=== PATIENT | female | born 1945 | race Two or more races ===

== ENCOUNTER 2024-09-13 12:29 | Outpatient (AMB) | payer OTHER, SELFPAY ==
--- OUTSIDE RECORDS SUMMARY | 2024-09-13 12:38 | XMS_ITS | Data Portability ---
Author Organization [facility] Address [address] [place] [address] Care Team Providers Care Supervisor [address] Name Role Phone HIM CCA OTHER Assessment Encounter Date Assessment Date Assessment LastModified by Organization Details LastModified Time 06/20/2024 06/20/2024 As noted, we were called to see this patient regarding concerns of cough, dyspnea, chest pain. Evaluation in the field was performed by my annual giving officer colleague, as noted above, I provided real-time direction and supervision for this visit. The evaluation revealed same. Impression: 78yo/f who is 6 days s/p valve replacement surgery referred for evaluation for chest pain, dizziness, dyspnea. Patient seen by medic in home, endorse surgery as above, discharged to home. Today pt is having anterior chest discomfort, shortness of breath, occasional cough, episodes of dizziness . On medic exam she is awake, alert, but with tachypnea, mild increased work of breathing. EKG performed and shows LBBB. Discussed at length, pt is at high risk of post operative complications at this time including possibility of pulmonary embolism, valve failure. She requires in person evaluation for further evaluation and treatment in [facility] ED. Expect called to [facility] ED. Plan: ED Primary care, consider followup ED visit Disposition: We discussed the situation and I recommended referred to the ED. [email or web address] Not available 06/20/2024 14:45:50 09/06/2024 09/06/2024 Evaluation in the field was performed by my annual giving officer colleague, as noted above, I provided real-time direction and supervision for this visit. This is a 79yo F requesting [facility] evaluation for productive cough, congestion, SOB for the past 4 days. Patient is a poor historian. Has history of asthma/COPD but hasn? t used a breathing treatment in the past 3 days. Has occasionally taken Tylenol. Is eating/drinking. Denies NVD. Went to urgent care yesterday and got a prescription for prednisone which she did take today. PE: General: Awake & alert, NAD Respiratory: CTAB. Chest rise equal bilat, no increased wob at rest. CV: Regular rate, normal peripheral perfusion Neuro: A&Ox4, No focal deficits. Impression: Acute respiratory failure COPD exacerbation Plan: -Febrile to 101, BP stable, slight tachycardia -Prior to treatment, pt was SOB with dyspnea and tachycardia on ambulation. -She was given 3 DuoNebs with slight improvement at rest, but she is still tachypneic, and with ambulation she becomes more SOB with RR around 40. O2 sat low 90s. -Had already taken po prednisone this morning which was prescribed to her by urgent care yesterday, has not shown improvement from that. -Pt recommended ED evaluation for likely COPD exacerbation with respiratory failure unable to be further treated at home. She has refused, however. She states she doesn't want to go because she always has to wait forever and she is treated like an animal there. I explained to her that the volume in emergency departments is sometimes very high and unfortunately very busy, but she will still get the care she needs there. She still refuses. -She has a INVESTMENT BROKER at home but refused to allow us to contact any family to help make decisions. However, the INVESTMENT BROKER called her daughter who came to the home and has convinced the patient to go to the ED. -911 called for transport Disposition: Transport to [facility] ED Not available 09/06/2024 17:04:47 Plan of Treatment Reminders Order Date Submit Date Provider Last Modified By Organization Details Last Modified Time Details Appointments None recorded. Lab rapid flu (A+B) 2024 025 [facility], [address] [place] [address], [phone], 21:44:12 rapid SARS CoV 2 Ag, QL IA, respiratory specimen 2024 025 [facility], [address] [place] [address], [id number], 21:44:33 rapid SARS CoV 2 Ag, QL IA, respiratory specimen 2023 024 [email or web address] [facility], [address] [place] [address], [phone], 4 12:59:53 Referral None recorded. Procedures None recorded. Surgeries None recorded. Imaging electrocard iogram 2023 024 [email or web address] [facility], [address] [place] [address], [phone], 4 15:06:16 Medication Orders acetaminoph en 500 mg tablet 2024 025 Not available 5 15:48:16 ipratropium 0.5 mg-albutero l 3 mg (2.5 mg base)/3 mL nebulizatio n soln 2024 025 Not available 5 15:48:16 ipratropium 0.5 mg-albutero l 3 mg (2.5 mg base)/3 mL nebulizatio n soln 2024 025 Not available 5 16:26:19 Patient TargetsNo targets recorded. Patient InstructionsNo instructions recorded. Reason for Referral None Reported. Results Created Date Observation Date Name Description Value Unit Range Abnormal Flag Note LastModifiedBy Organization Detail LastModifiedTime 11/26/19 24 11/26/2023 rapid SARS CoV 2 Ag, QL IA, respi rator y speci men rapid SARS CoV 2 Ag, QL IA, respiratory specimen positi ve Not Available [facility] [address] [place] [address], [phone], 11/26/2023 12:59:45 06/20/20 24 06/20/2024 kacie akhtar am No observ ation record ed. [facility] [address] [place] [address], [phone], 06/20/2024 20:37:33 Result Notes None recorded. Procedures Surgical History None recorded. Imaging Results Imaging Date Name Status LastModified by Organization Details LastModified Time 06/20/2024 electrocardiogram completed jordan Duenas - [facility] [address] [place] [address], [place], [phone], 06/20/2024 20:37:33 Procedure Notes None recorded. Medical Equipment None Reported. Allergies Allergen ID Allergen Name Allergen Category Reaction Reaction Severity Criticality Documentation Date Start Date Code Code System Note Provider Name and Address Organization Details Recorded Time 67352 erythromy brock medicatio n Not available Not available Not available 06/20/2024 4053 RxNorm Not Available [facility] - production 4 13:06:43 8627 azithromy brock medicatio n Not available Not available Not available 05/29/2024 22976 RxNorm Not Available [facility] - production 4 03:45:39 Medications Name Sig Start Date Stop Date Status Note LastModified by Organization Details LastModified Time tolterodine ER 2 mg capsule,exte nded release 24 hr TAKE 1 CAPSULE BY MOUTH ONCE DAILY active Not Available Not Available No t Available metformin 500 mg tablet TAKE 1 TABLET BY MOUTH two (2) times a day active Not Available Not Available No t Available venlafaxine ER 37.5 mg capsule,exte nded release 24 hr TAKE TWO CAPSULES BY MOUTH ONCE DAILY active Not Available Not Available No t Available gabapentin 600 mg tablet TAKE 1 TABLET BY MOUTH 3 (THREE) TIMES A DAY active Not Available Not Available Not Available ipratropium 0.5 mg-albuterol 3 mg (2.5 mg base)/3 mL nebulization soln Inhale 6 mL by nebulizatio n route. 2024 active Not Available Not Available Not Avai lable clobetasol 0.05 % topical cream APPLY A THIN LAYER TO THE AFFECTED AREA two (2) times a day active Not Available Not Available No t Available ciprofloxaci n 500 mg tablet TAKE 1 TABLET BY MOUTH two (2) times a day. IF symtoms are BETTER AFTER 3 DAYS, can STOP AFTER 3 DAYS active Not Available Not Available No t Available sulfamethoxa zole 800 mg-trimethop rim 160 mg tablet active Not Available Not Available Not Available acetaminophe n 500 mg tablet Take 2 tablets by oral route. 2024 active Not Available Not Available Not Avai lable methenamine hippurate 1 gram tablet TAKE 1 TABLET BY MOUTH EVERY TWELVE HOURS active Not Available Not Available No t Available cephalexin 500 mg capsule TAKE 1 CAPSULE BY MOUTH 4 (FOUR) TIMES DAILY FOR 5 DAYS active Not Available Not Available N ot Available lidocaine 5 % topical patch APPLY 2 patches topically ONCE DAILY NEEDED FOR PAIN. USE FOR 12hrs active Not Available Not Available No t Available docusate sodium 100 mg capsule TAKE 2 CAPSULES BY MOUTH ONCE DAILY AT BEDTIME active Not Available Not Available No t Available gabapentin 300 mg capsule TAKE 1 CAPSULE BY MOUTH 3 (THREE) TIMES A DAY active Not Available Not Available Not Available omeprazole 20 mg capsule,prudence yed release TAKE TWO CAPSULES BY MOUTH ONCE DAILY BEFORE A MEAL active Not Available Not Available No t Available oxycodone-ac etaminophen 2.5 mg-325 mg tablet TAKE 1 TABLET BY MOUTH ONCE DAILY AT BEDTIME NEEDED FOR PAIN FOR 7 DAYS; MAY TAKE 1 TABLETS NEEDED active Not Available Not Available No t Available furosemide 20 mg tablet TAKE 1 TABLET BY MOUTH ONCE DAILY active Not Available Not Available No t Available mirtazapine 15 mg tablet TAKE 1 TABLET BY MOUTH AT BEDTIME active Not Available Not Available No t Available clobetasol 0.05 % topical ointment APPLY TO THE AFFECTED AREA two (2) times a day X 14 DAYS, THEN TWICE A WEEK active Not Available Not Available No t Available levofloxacin 750 mg tablet use as directed please take 1 tab the day before (12/09/22) the UDS and 1 tab on day of (12/10/22) UDS (750 mg x 2 tabs) active Not Available Not Available No t Available zolpidem 10 mg tablet TAKE 1 TABLET BY MOUTH AT BEDTIME FOR SLEEP active Not Available Not Available No t Available fluoxetine 20 mg capsule TAKE 1 CAPSULE BY MOUTH EVERY MORNING active Not Available Not Available No t Available oxycodone 5 mg tablet TAKE 1 TABLET BY MOUTH EVERY 8 HOURS NEEDED FOR PAIN active Not Available Not Available No t Available enoxaparin 80 mg/0.8 mL subcutaneous syringe INJECT THE CONTENT OF 1 syringe SUBCUTANEOU SLY EVERY TWELVE HOURS FOR 14 DAYS active Not Available Not Available No t Available enoxaparin 120 mg/0.8 mL subcutaneous syringe INJECT THE CONTENT OF 1 syringe (0.8ml) SUBCUTANEOU SLY ONCE DAILY FOR 14 DAYS. replaces pradaxa active Not Available Not Available No t Available Vitamin D3 25 mcg (1,000 unit) tablet TAKE 1 TABLET BY MOUTH ONCE DAILY DIRECTED active Not Available Not Available No t Available metformin ER 750 mg tablet,exten ded release 24 hr TAKE 1 TABLET BY MOUTH ONCE DAILY WITH A MEAL IN THE EVENING active Not Available Not Available Not Available rosuvastatin 10 mg tablet TAKE 1 TABLET BY MOUTH ONCE DAILY active Not Available Not Available No t Available Urinary Pain Relief 95 mg tablet TAKE 2 TABLETS BY MOUTH 3 (THREE) TIMES A DAY NEEDED FOR dysuria active Not Available Not Available Not Available lactulose 10 gram/15 mL oral solution TAKE 30mls BY MOUTH 3 (THREE) TIMES A DAY NEEDED FOR CONSTIPATIO N active Not Available Not Available No t Available pregabalin 75 mg capsule TAKE 1 CAPSULE BY MOUTH two (2) times a day FOR 21 DAYS active Not Available Not Available No t Available pregabalin 150 mg capsule TAKE 1 CAPSULE BY MOUTH two (2) times a day active Not Available Not Available No t Available FreeStyle Lite Strips USE TO TEST FINGER STICK BLOOD SUGAR ONCE DAILY active Not Available Not Available No t Available FeroSul 325 mg (65 mg iron) tablet TAKE 1 TABLET BY MOUTH ONCE DAILY active Not Available Not Available No t Available diclofenac 1 % topical gel APPLY TO THE AFFECTED AREA 4 (FOUR) TIMES DAILY active Not Available Not Available Not Available Pradaxa 150 mg capsule TAKE 1 CAPSULE BY MOUTH two (2) times a day active Not Available Not Available No t Available Combivent Respimat 20 mcg-100 mcg/actuatio n solution for inhalation INHALE 1 PUFF BY MOUTH 4 (FOUR) TIMES DAILY NEEDED FOR SHORTNESS OF BREATH OR FOR WHEEZING active Not Available Not Available No t Available Myrbetriq 25 mg tablet,exten ded release TAKE 1 TABLET BY MOUTH ONCE DAILY active Not Available Not Available No t Available Linzess 145 mcg capsule TAKE 1 CAPSULE BY MOUTH ONCE DAILY. MAY TAKE two (2) times a day NEEDED active Not Available Not Available No t Available Linzess 290 mcg capsule TAKE 1 CAPSULE BY MOUTH ONCE DAILY active Not Available Not Available No t Available Jardiance 10 mg tablet TAKE 1 TABLET BY MOUTH ONCE DAILY active Not Available Not Available No t Available Senna-Time S 8.6 mg-50 mg tablet TAKE 1 TABLET BY MOUTH two (2) times a day FOR 10 DAYS active Not Available Not Available No t Available Trelegy Ellipta 200 mcg-62.5 mcg-25 mcg powder for inhalation INHALE 1 PUFF BY MOUTH BY MOUTH ONCE DAILY active Not Available Not Available No t Available Paxlovid 300 mg (150 mg x 2)-100 mg tablets in a dose pack TAKE 3 TABLETS BY MOUTH AT ONCE TWICE DAILY WITH OR WITHOUT FOOD FOR 5 DAYS active Not Available Not Available No t Available Vitals Date Recorded Body weight Oxygen saturation Oxygen saturation in Arterial blood by Pulse oximetry Respiratory rate Heart rate Systolic blood pressure Diastolic blood pressure Provider Name and Address Organization Details Last Updated DateTime 3 41657.4 8 g 99 % 99 % 16 /min 105 /min 146 mm[Hg] 73 mm[Hg] Not Available [facility] [employer] 3 11:31:18 Date Recorded Oxygen saturation Oxygen saturation in Arterial blood by Pulse oximetry Body temperature Heart rate Respiratory rate Systolic blood pressure Diastolic blood pressure Provider Name and Address Organization Details Last Updated DateTime 3 98 % 98 % 98.6 [degF] 68 /min 18 /min 132 mm[Hg] 76 mm[Hg] Not Available [employer] 3 20:48:07 Date Recorded Body weight Body temperature Respiratory rate Heart rate Oxygen saturation Oxygen saturation in Arterial blood by Pulse oximetry Systolic blood pressure Diastolic blood pressure Provider Name and Address Organization Details Last Updated DateTime 4 10300.6 24 g 99.1 [degF] 18 /min 96 /min 98 % 98 % 146 mm[Hg] 74 mm[Hg] Not Available [employer] 4 12:50:41 Date Recorded Oxygen saturation Oxygen saturation in Arterial blood by Pulse oximetry Respiratory rate Heart rate Body temperature Systolic blood pressure Diastolic blood pressure Provider Name and Address Organization Details Last Updated DateTime 4 99 % 99 % 28 /min 76 /min 98.4 [degF] 152 mm[Hg] 86 mm[Hg] Not Available [employer] 4 14:15:40 Date Recorded Oxygen saturation Oxygen saturation in Arterial blood by Pulse oximetry Respiratory rate Heart rate Body temperature Systolic blood pressure Diastolic blood pressure Provider Name and Address Organization Details Last Updated DateTime 5 94 % 94 % 32 /min 110 /min 101.1 [degF] 166 mm[Hg] 78 mm[Hg] Not Available [facility] 5 15:32:44 Social History None recorded. Functional Status None recorded. Mental Status None recorded. Family History Nothing Reported. Medical History No medical history recorded. Gynecological HistoryNo gynecological history recorded. Obstetrics History GPAL:G 0 P 0 0 0 0 Past Encounters Encounter ID Performer Location Encounter Start Date Encounter Closed Date Diagnosis/Indication Diagnosis SNOMED-CT Code Diagnosis ICD10 Code Diagnosis Note [id number] Yee Summers MD Main - [facility] [address] [place] [phone] 01/14/2023 11:31:17 01/15/2023 23:03:10 Chronic pain syndrome 696643233 G89.4 77 year old female with neuropathi c pain, being evaluated for acute on chronic pain. Patient reports she is having worsening pain that is incomplete ly relieved by her home medication s. She takes gabapentin 600 TID, and has some percocet, along with topicals. She is on blood thinners. Pain appears to be bothersome all over her body. Exam notable normal vital signs. Presentati on consistent with acute flare up of chronic neuropathi c pain, patient already maximizing home regimen, and risks of toradol outweigh benefits, therefore instructed patient to contact outpatient team for follow up to discuss additional pain control options. [id number] Cr Carrington MD Main - [facility] [address] [place] [phone] 07/01/2023 20:48:03 07/02/2023 11:43:22 Pain of knee region 1443165935 M25.569 Patient reporting acute on chronic knee pain. History of osteoarthr itis, anticoagul ation, and CKD. Doubt gout or septic arthritis given annual giving officer examinatio n and known history of OA. Sue rosenthal not a good candidate for ketorolac and has been taking acetaminop hen according to age-approp riate dosing. Advised follow-up with PCP and orthopedic s for re-evaluat ion. [id number] HUMZA GARLAND MD Main - [facility] [address] [place] [phone] 11/26/2023 12:50:38 11/27/2023 17:18:04 Acute COVID-19 [id number] U07.1 Evaluation in the field was performed by my annual giving officer colleague, as noted above, I provided real-time direction and supervisio n for this visit. The evaluation revealed 72 yo female with hx of afib on Dabigatran , Type 2 DM with complains of low grade fever, mild cough, headache and myalgia since Tuesday. She tested negative for Covid then, but since symptoms continued , family tested her last night and she tested Positive. Denies SOB, N/V/D. Tolerating PO well.VSS : SpO2 98 % on RA, RR 18, T 99.1Lungs CTABCovid Positive Impression :Covid infection Plan:Famil y requested Paxlovid. Unfortunat ariadna , pt is taking Dabigatran . Nirmatrelv ir can significan tly increase the blood levels of dabigatran , which may result in increased risk of bleeding complicati ons.We discussed the possibilit y of Molnupirav ir but [facility] does not carry it.Pt with low grade fever that is responding to Tylenol, respirator y status is stable with no hypoxia or cough .-Red flags discussed with the family Primary care, consider__ _ Dispositio n: We discussed the diagnostic uncertaint y of home visits and the risk associated with this. In this case, the patient and I felt this to be an acceptable and reasonable amount of risk given the benefit of avoiding an ED visit. We discussed the need to seek care urgently/e mergently in the setting of any new or worsening serious symptoms, particular ly fever >101 that is not responding to Tylenol ( should not used Ibuprofen ), chills, SOB, cough, N/V/D, weakness or any other concerns. [id number] Angel Rabago MD Main - [facility] [address] [place] [phone] 06/20/2024 14:15:26 06/20/2024 18:05:31 Chest pain 20244575 R07.9 [id number] Missy Forrest MD Main - [facility] [address] [place] [phone] 09/06/2024 15:28:58 09/06/2024 18:55:01 Upper respiratory infection 00536745 J06.9 Acute resp iratory failure 39797102 J96.00 Acute exac erbation of chronic obstructive pulmonary disease [id number] J44.1 Health Concerns Section Related Observation LastModified by Organization Detai ls LastModified Time None Recorded Concern Status LastModified by Organization Details LastModified Time None Recorded Advance Directives Directive None Recorded Payers Encounter Date Sequence Insurance Name Policy Number Policy Orozco Covered Member ID Orozco Member ID Guarantor Name 01/14/2023 1 [facility] [employer] - DOS ON OR AFTER 2022 - DUAL ELIGIBLE - DETENTION OPTIONS AND ONE CARE (MEDICARE REPLACEMENT/ADV ANTAGE - HMO) Kaitlynn Concepcion [id number] Kaitlynn Concepcion 07/01/2023 1 [employer] - DOS ON OR AFTER 2022 - DUAL ELIGIBLE - DETENTION OPTIONS AND ONE CARE (MEDICARE REPLACEMENT/ADV ANTAGE - HMO) Kaitlynn Concepcion [id number] Kaitlynn Concepcion 11/26/2023 1 [employer] - DOS ON OR AFTER 2022 - DUAL ELIGIBLE - DETENTION OPTIONS AND ONE CARE (MEDICARE REPLACEMENT/ADV ANTAGE - HMO) Kaitlynn Garciaanda [id number] Kaitlynn Concepcion 06/20/2024 1 [employer] - DOS ON OR AFTER 2022 - DUAL ELIGIBLE - DETENTION OPTIONS AND ONE CARE (MEDICARE REPLACEMENT/ADV ANTAGE - HMO) Kaitlynn Concepcion [id number] Kaitlynn Concepcion 09/06/2024 1 [employer] - DOS ON OR AFTER 2022 - DUAL ELIGIBLE - DETENTION OPTIONS AND ONE CARE (MEDICARE REPLACEMENT/ADV ANTAGE - HMO) Kaitlynn Concepcion [id number] Kaitlynn Concepcion Notes Date Note Type Note Provider Name and Address Organization Details Recorded Time 01/14/2023 text/html [facility] Nursing Assessment: Chief Complaints: Pain PMH: Other Allergies: Azithromycin Pain Assessment: Level 10 out of 10 Comments: Difficulty ambulating the last 2 days due to increased Left knee and leg pain. Fall 2-3 weeks ago, was evaluated in ED at that time. Negative imaging. Takes 2.5mg Oxycodone PRN and gabapentin for pain. Daughter states she has been trying to set up [facility] services for member. Has sent message to PCP regarding this concern. .................... .................... .................... .................... .................... .................... .................... . Director Of Planning Note From Lonnie Garcia: pt requesting visit for pain. pt was found laying in bed with her legs elevated and family member at her bedside. pt states she has pain all over her body from her toes to her torso. Pt states she had a mechanical fall about a month ago and the pain has been worse since. Pt has hx of neuropathy and chronic pain. Pt is on doreen and tylenol as well as various creams and ointments for pain with little to no relief. Pt states she has been taking her percocets that she has left over from a prescription back in september. Pt is on blood thinners thus making her incompatible with ketorolac. Vitals assessed. Pt denies n/v/d/f/sob/cp. [facility] contacted, [facility] recommends the pt reach out to her PCP about a refill of the percocet or upping the dose on her gabapentin. Pt educated on s/s warranting a 911 call/trip to the hospital. Director Of Planning Allergies: Azithromycin .................... .................... .................... .................... .................... .................... .................... . Disposition: April Summers MD [address] [facility],[address], [place], [phone], [facility] 01/14/2023 11:36:50 07/01/2023 text/html HPI: mbr with complaints of knee swollen/warm and Painful 03/10 making it difficult to walk,. requesting [facility] Protocol Used: Knee Swelling Protocol-Based Disposition: Consider JOSE ENRIQUE [facility] Community clinician, MD/GRINDER NEEDLE TIP triage, PCP, or Urgent Care Visit within 4 Hours Positive Triage Questions: * [1] SEVERE pain (e.g., excruciating, unable to walk) AND [2] not improved after 2 hours of pain medicine * SEVERE swelling (e.g., can't move swollen knee at all) Negative Triage Questions: * [1] Knee pain AND [2] fever * [1] Knee redness AND [2] fever * [1] Redness AND [2] painful when touched AND [3] no fever .................... .................... .................... .................... .................... .................... .................... . [facility] Nursing Assessment: Comments: Reviewed, no further info needed Jaqueline CATHERINE .................... .................... .................... .................... .................... .................... .................... . Director Of Planning Note From Prieto Prasad: Dispatched to the call address for the female with knee pain. Pt states she has right knee pain that she has had for 2 months now. She has been seen by her PCP and in the ED. Pt was in ED last week and family shared notes from PCPs review of her stay there. PCP states Pt has osteoarthritis and a minor amount of fluid in the joint. He suggested that it would hurt off and on likely for the rest of her life but that she may need a steroid injection. Pt is currently taking blood thinners and believes she has CKD, making her a poor candidate for NSAIDs. Pt is already maxing out on daily limit of Tylenol. She also takes Oxycodone and gabapentin that is prescribed to her. Pt was found laying in bed with legs elevated, CAOx4, airway open and patent, breathing non labored, able to speak in full sentences, -JVD, -HEENT, skin PWD with good turgor, abd soft non tender/distended, pupils PERRL, +CMSx4, no noted erythema or signs of infection noted, Right knee is comparable to left and no obvious deformities or crepitus noted. [facility] consulted. Pt advised to follow up with PCP and advised ice/heat as needed. Red flags discussed. ALL times are approx. .................... .................... .................... .................... .................... .................... .................... . Disposition: Fulfilled Cr Carrington MD [address], [place], [address], [employer] 07/01/2023 22:02:51 11/26/2023 text/html HPI: members daughter called, reports member with fever 99-101, cough, bodyaches, x 4 days. Tested negative for COVID on Tue, and then tested again last night and was positive. She is requesting an instED visit for assessment and to discuss need for Paxlovid. .................... .................... .................... .................... .................... .................... .................... . CRC Nurse Triage Notes (Lewis White): Comments: HPI reviewed by this RN, no further information needed to process visit -Claire White RN .................... .................... .................... .................... .................... .................... .................... . Director Of Planning Note From Brennen Lyman: Pt co headache cough and fever. Pt Covid POs. Pt symptoms x4 days. Pt denies sob cp NVD. Pt on thinners. Baseline vitals assessed lungs clear , Covid swab POs. [facility] contacted and advised rest and fluids. Pt advised red flags that would indicate the ER. Pt advised to follow up with pcp. Director Of Planning Allergies: Azithromycin .................... .................... .................... .................... .................... .................... .................... . Disposition: April HUMZA GARLAND MD [address] [facility],[address], [place], [address], [facility] [employer] 11/26/2023 13:40:25 06/20/2024 text/html HPI: Member's daughter Francoise called CRU, requesting INTSED visit for member. 78 y/o female member with c/o chest pain, sob, cough with green sputum production, chest pressure and dizziness. Member is able to speak in full sentences without pauses or breaks. Daughter refused to have member evaluated in ED, despite education related to severity of sx's and fragile status. Education provided, member is at risk for severe complications d/t delay in treatment. Francoise verbalized comprehension and is [facility] and is refusing to take member to ED. Member is s/p heart valve replacement, last week. PMH includes: DVT lower leg, paraplegia, DM II, aortic valve stenosis, COPD, chronic edema, MDD, anxiety. This [facility] nurse [facility]. Wait time for visit can be anywhere from 3-5 hours. Informed Francoise of this long wait time and encouraged her to call 911 if sx's worsen or change .................... .................... .................... .................... .................... .................... .................... . CRC Nurse Triage Notes (Jose Locke): Chief Complaints: Chest pain, Cough, Dizziness PMH: Para or Quadriplegia, COPD/Asthma, Deep Vein Thrombosis, Diabetes Mellitus Type 2, Asthma Comments: Assess s/s and treat as indicated Director Of Planning Organization Information for Nick Casey Business Legal Name: [employer]? Address: [address] [place] [address], Machine Brusher: Dany DANIEL No.: [id number] Director Of Planning POC Test Results from Nick Casey EKG (14:10:14) EKG test performed. Attachments uploaded as part of this test result can be found under Documents section. .................... .................... .................... .................... .................... .................... .................... . Director Of Planning Note From Nick Casey: Dispatched to above address for chest pain On arrival patient 78 y/o F, found lying in bed, AOX4, airway patent, speaking in full sentences, tachypneic, slight shortness of breath with exertion, good color, in no apparent distress. Patient reports last she had a cardiac valve replacement, today is having bilateral foot pain, SOB difficulty breathing and chest pressure unrelieved by home MDI use. Patients vital signs checked. Secondary assessment, pupils PERRL, airway patent, no JVD, trachea midline, equal chest rise and fall, lungs clear all rowe, abdomen soft non tender, no signs of trauma, good radial pulse, skin pink warm and dry. 12 lead EKG showed sinus rhythm with LBBB, uploaded. [facility] contacted, spoke with Dr. Rabago, advised of patient complaints, exam findings and test results. [facility] recommended patient be transported to ER for further evaluation and testing. Patient and family agree with this. 911 contacted. [facility] responded. Patient extricated to ambulance. IV access established, 20g L wrist. Patient administered 324mg ASA PO. Patient has no additional complaints at this time. Patient remained AOX4 for duration of transport, able to speak and answer questions without difficulty. Patient transported to [facility] without incident or change in status. Verbal report given to RN. RAFAEL ortiz. EOR. .................... .................... .................... .................... .................... .................... .................... . [facility] Consulted: Angel Rabago .................... .................... .................... .................... .................... .................... .................... . Disposition: Fulfilled Angel Rbaago MD [address] [place] [address],[address], [place], [address], [employer] 06/20/2024 15:45:21 09/06/2024 text/html HPI: RUPERTO is a 79 y/o female with a PMH of, but not limited to: COPD, DM II (oral agents), paraplegia (self-caths), AVR (06/14/24), GERD, Hx DVT? s , and chronic venous insufficiency. RUPERTO is weak and ill-sounding at the onset of this call. She reports moderate SOB, nasal congestion, runny nose (white with ? b loody spots? ), a productive cough yielding cream colored sputum, headaches, a slightly ? b lue tinged upper lip? , weakness, and suspicion of fevers. She does not have a thermometer but feels ? f everish.? RUPERTO denies CP, palpitations, or any other symptoms at this time. RUPERTO is very weak and ill-sounding to this typewriter assembler. She is congested, has a wet cough, and occasional mild wheezing can be appreciated. RUPERTO is primarily Kazakh speaking, AOx4, speaks in full sentences, and answers questions appropriately. She is increasingly SOB with speaking. RUPERTO is strongly advised to present to ED via 911, but she becomes extremely upset and states, ? I would rather in my house than go there! I went before for this same thing, and I sat in the hallway for 24 hours.? RUPERTO wants an in-home visit first. This CRU RN assures RUPERTO that a referral will be placed on her behalf. After confirming RUPERTO? s address and phone number on file, RUPERTO is strongly advised to call 911 for any new or worsening symptoms. She understands and will do so if absolutely necessary. RUPERTO can be reached at [phone]. (Of note: RUPERTO had AVR on 06/14/24 and developed a cough since then; on Lasix) .................... .................... .................... .................... .................... .................... .................... . [facility] Nurse Triage Notes (Nancy Hurt - RN): Chief Complaints: Breathing problems, Common cold symptoms, Cough, Fever/chills, Headache, Weakness PMH: Para or Quadriplegia, COPD/Asthma, Deep Vein Thrombosis, Diabetes Mellitus Type 2, Asthma PMH Reviewed at 09/06/2024 Allergies Reviewed at 09/06/2024: Comments: additional information received by CRU 1:36pm ? MBR? s daughter and EC1, Francoise Angela, contacts the CRU directly to request an InstED in-home service for MBR today for ongoing cough. Ms. Angela reports that RUPERTO had a ? h eart valve replacement on 06/14/24 and, since then, has developed this cough.? RUPERTO has been seen many times and prescribed medications, which have not been working well. Caller reports that RUPERTO has been hospitalized a few times since with ? f luid in her lungs.? RUPERTO was seen in 2 weeks ago, and again yesterday for this cough. MBR had a CXR yesterday which revealed ? s light fluid in the lungs.? MBR followed up with PCP today over the phone, her Lasix dose was increased from 20mg to 50mg, which ? h asn? t helped much.? MBRs daughter very concerned and requests InstED visit. This CRU RN informs caller that MBR will be outreached for further triage of this call. Ms. Angela requests dredge pipeman for call. Director Of Planning Organization Information for Carmela Nick Resendez MARY Business Legal Name: [employer].? Address: [address] [place] [address], [place] [address], Machine Brusher: Dany Chand MD CLIA No.: [id number] Director Of Planning POC Test Results from Nick Casey Rapid COVID antigen (15:35:24) COVID: - Attachments uploaded as part of this test result can be found under Documents section. Rapid influenza antigen (15:35:24) Flu: - Attachments uploaded as part of this test result can be found under Documents section. .................... .................... .................... .................... .................... .................... .................... . Director Of Planning Note From Nick Casey: Dispatched to above address for difficulty breathing. On arrival patient 79 y/o F, found walking from bathroom to bedroom, using walker, normal gait, AOX4, airway patent, speaking in short sentences, tachypneic, good color, in moderate distress. Patient reports she had an AVR in June, since has had several episodes of shortness of breath difficulty breathing malaise and lethargy. Patients vital signs checked. Secondary assessment, pupils PERRL, airway patent, no JVD, trachea midline, equal chest rise and fall, lungs clear all rowe, shallow rapid respirations, abdomen soft non tender, no signs of trauma, good radial pulse, skin pink warm and dry. Covid-19 and Flu test checked, both negative, results uploaded. [facility] contacted, spoke with Dr. Forrest, advised of patient complaints, exam findings and test results. [facility] ordered Duoneb and 1000mg Tylenol PO. Patient started on Duoneb, administered 1000mg Tylenol PO. Patient reevaluated after nebulizer TX without change. [facility] contacted, advised of no change in status after TX. [facility] ordered x2 Duoneb treatments and an ambulatory assessment after. X2 Duoneb TX administered. Ambulatory assessment preformed, patient became tachypneic in the 40s and tachycardic durring assessment. [facility] contacted, advised of assessment results. [facility] recommended patient go to ER for further evaluation and care. Patient refused further evaluation and care. As [facility] was preparing refusal form, patients daughter arrived on scene and was able to convince patient to go to ER. 911 called. [facility] responded, verbal report given to [facility] annual giving officer, took over patient care, will transport to [facility]. OH8 clear. EOR. .................... .................... .................... .................... .................... .................... .................... . [facility] Consulted: Missy Forrest .................... .................... .................... .................... .................... .................... .................... . Disposition: Fulfilled Missy Forrest MD [address] [facility], [place], [address], LUIS EDUARDO COLEMAN GEIGER 09/06/2024 18:05:54 OBGyn Episode No OBEpisode recorded.
--- OUTSIDE RECORDS SUMMARY | 2024-09-13 12:38 | XMS_ITS | Continuity of Care Document ---
Author Organization [employer] [place] [facility] Address [address] [place] [address] Care Team Providers Care Chemistry Manager Name Role Phone HIM CCA OTHER Assessment Encounter Date Assessment Date Assessment LastModified by Organization Details LastModified Time 09/06/2024 09/06/2024 Evaluation in the field was performed by my retail training manager colleague, as noted above, I provided real-time [...] there. She still refuses. -She has a INSTRUMENT LENS GRINDER APPRENTICE at home but refused to allow us to contact any family to help make decisions. However, the INSTRUMENT LENS GRINDER APPRENTICE called her daughter who came to the home and has convinced the patient to go to the ED. -911 called for transport Disposition: Transport to [facility] ED Not available 09/06/2024 17:04:47 Plan of Treatment Reminders Order Date Submit Date Provider Last Modified By Organization Details Last Modified Time Details Appointments None recorded. Lab rapid flu (A+B) 2024 025 [facility], [address] [place] [address], [id number], 21:44:12 rapid SARS CoV 2 Ag, QL IA, respiratory specimen 2024 025 [facility], [address] [place] [address], [phone], 21:44:33 Referral None recorded. Procedures None recorded. Surgeries None recorded. Imaging None recorded. Medication Orders acetaminoph en 500 mg tablet 2024 025 Not available 15:48:16 ipratropium 0.5 mg-albutero l 3 mg (2.5 mg base)/3 mL nebulizatio n soln 2024 025 Not available 15:48:16 ipratropium 0.5 mg-albutero l 3 mg (2.5 mg base)/3 mL nebulizatio n soln 2024 025 Not available 16:26:19 Patient TargetsNo targets recorded. Patient InstructionsNo instructions recorded. Reason for Referral None Reported. Results Created Date Observation Date Name Description Value Unit Range Abnormal Flag Note LastModifiedBy Organization Detail LastModifiedTime Result Notes None recorded. Medical Equipment None Reported. Allergies Allergen ID Allergen Name Allergen Category Reaction Reaction Severity Criticality Documentation Date Start Date Code Code System Note Provider Name and Address Organization Details Recorded Time 58580 erythromy brock medicatio n Not available Not available Not available 06/20/2024 4053 RxNorm Not Available [facility] - production 4 13:06:43 8627 azithsasha brock medicatio n Not available Not available Not available 05/29/2024 79280 RxNorm Not Available [facility] 03:45:39 Medications Name Sig [...] Available No t Available Vitals Date Recorded Oxygen saturation Oxygen saturation in Arterial blood by Pulse oximetry Respiratory rate Heart rate Body temperature Systolic blood pressure Diastolic blood pressure Provider Name and Address Organization Details Last Updated DateTime 94 % 94 % 32 /min 110 /min 101.1 [degF] 166 mm[Hg] 78 mm[Hg] Not Available [facility] - production 15:32:44 Social History None recorded. Functional Status None recorded. Mental Status None recorded. Family History Nothing Reported. Medical History No medical history recorded. Gynecological HistoryNo gynecological history recorded. Obstetrics History GPAL:G 0 P 0 0 0 0 Past Encounters Encounter ID Performer Location Encounter Start Date Encounter Closed Date Diagnosis/Indication Diagnosis SNOMED-CT Code Diagnosis ICD10 Code Diagnosis Note [id number] Missy Forrest MD [facility] - [facility] [address] [place] [phone] 09/06/2024 15:28:58 09/06/2024 18:55:01 Upper respiratory infection 28800142 J06.9 Acute resp iratory failure 79296337 J96.00 Acute exac erbation of chronic obstructive pulmonary disease 113031874 J44.1 Health Concerns Section Related Observation LastModified by Organization Detai ls LastModified Time None Recorded Concern Status LastModified by Organization Details LastModified Time None Recorded Payers Encounter Date Sequence Insurance Name Policy Number Policy Orozco Covered Member ID Orozco Member ID Guarantor Name 09/06/[address] [facility] - DOS ON OR AFTER 2022 - DUAL ELIGIBLE - PENITENTIARY OPTIONS AND ONE CARE (MEDICARE REPLACEMENT/ADV ANTAGE - HMO) Kaitlynn Javier [id number] Kaitlynn Javier Notes Date Note Type Note Provider Name and Address Organization Details Recorded Time 09/06/2024 text/html HPI: RUPERTO is a 79 [...] is very weak and ill-sounding to this residential mortgage underwriter. She is congested, has a wet cough, and occasional mild wheezing can be appreciated. RUPERTO is primarily Comoran speaking, AOx4, speaks in full sentences, and [...] absolutely necessary. RUPERTO can be reached at [phone]. (Of note: RUPERTO had AVR on 06/14/24 and developed a cough since then; on Lasix) .................. .................. .................. .................. .................. .................. .................. ............... [facility] Nurse Triage Notes (Nancy Hurt - RN): Chief Complaints: Breathing problems, Common cold symptoms, Cough, Fever/chills, Headache, Weakness PMH: Para or Quadriplegia, COPD/Asthma, Deep Vein Thrombosis, Diabetes Mellitus Type 2, Asthma PMH Reviewed at 09/06/2024: Allergies Reviewed at 09/06/2024 - 14:28 Comments: additional information received by CRU 1:36pm [...] ago, and again yesterday for this cough. ANTONIETAR had a CXR yesterday which revealed ? [...] triage of this call. Ms. Angela requests physiological chemist for call. Deputy Director Of Finance Organization Information for Carmela Nick Dipti MARY Business Legal Name: [employer].? Address: [address] [place] [address], Marketing Financial Analyst: Dany Chand MD CLIA No.: [id number] Deputy Director Of Finance POC Test Results from CarmelaNick Rapid COVID antigen (15:35:24) COVID: - Attachments uploaded as part of this test result can be found under Documents section. Rapid influenza antigen (15:35:24) Flu: - Attachments uploaded as part of this test result can be found under Documents section. .................. .................. .................. .................. .................. .................. .................. ............... Deputy Director Of Finance Note From Nick Casey: Dispatched to above [...] Flu test checked, both negative, results uploaded. [facility] contacted, spoke with Dr. Forrest, advised of patient complaints, exam findings and test results. [facility] ordered Duoneb and 1000mg Tylenol PO. Patient started on Duoneb, administered 1000mg Tylenol PO. Patient reevaluated after nebulizer TX without change. [facility] contacted, advised of no change in status after TX. [facility] ordered x2 Duoneb treatments and an ambulatory assessment after. X2 Duoneb TX administered. Ambulatory assessment preformed, patient became tachypneic in the 40s and tachycardic durring assessment. [facility] contacted, advised of assessment results. [facility] recommended patient go to ER for further evaluation and care. Patient refused further evaluation and care. As [facility] was preparing refusal form, patients daughter arrived on scene and was able to convince patient to go to ER. 911 called. [facility] responded, verbal report given to [facility] retail training manager, took over patient care, will transport to [facility]. NE8 clear. EOR. .................. .................. .................. .................. .................. .................. .................. ............... [facility] Consulted: Missy Forrest .................. .................. .................. .................. .................. .................. .................. ............... Disposition: Fulfilled Missy Forrest MD [address] [facility],[address] [facility], [place], [address], [employer] 09/06/2024 18:05:54 OBGyn Episode No OBEpisode recorded.
--- OUTSIDE RECORDS SUMMARY | 2024-09-13 12:38 | XMS_ITS | Patient Health Record ---
Author Organization [facility] Address [address] [place] [address] Care Team Providers Care Senior Service Aide Name Role Phone Gokul [place] MD Primary Care Provider Ty Saravia Unavailable [phone] Allergies Allergen (clinical drug ingredient) Drug/Non Drug Allergy documented on EMR Reaction Allergy Type Onset Date Status erythromycin Erythromycin Unknown Drug Allergy A ctive tramadol Tramadol Unknown Drug Allergy Active Reason For Referral No Information Medications Medication SIG (Take, Route, Frequency, Duration) Notes Start Date End Date Status Pregabalin 150 MG 1 capsule Orally Onc e a day Active Polyeth Glyc-Propylene Glyc Active Omeprazole 40 MG 1 capsule 30 minutes before morning meal Orally Once a day for 30 day(s) Active metFORMIN HCl 500 MG 1 tablet with a mo l Orally Once a day for 30 day(s) Active Extra Depth Orthopedic Shoes (1 Pair) with Customized Heat Molded Multidensity Innersoles (3 Pair) as directed Dx: NIDDM/Polyneuropathy (E11.42), Hammertoe Foot Deformity (M20.41,M20.42), Preulcerative Skin Lesion(s) (L85.1 12/24/2020 Active Laxative Active Vitamin D 25 MCG (1000 UT) 1 tablet Oral ly Once a day for 30 day(s) Active Hydrocortisone Activ e Vitamin B 12 Active Breo Ellipta 100-25 MCG/INH 1 puff Inhal ation Once a day Active Senna 8.6 MG 2 tablets at bedtime as needed Orally Once a day for 30 day(s) Active Baclofen Active Rosuvastatin Calcium 20 MG 1 capsule Ora lly Once a day for 30 day(s) Active rOPINIRole HCl Activ e PROzac 20 MG 1 capsule Orally Onc e a day for 30 day(s) Active Procto-Med HC 2.5 % 1 application Copyist ally Twice a day Active Aspirin 81 MG 1 tablet Orally Once a day for 30 day(s) Active Ambien 10 MG 1 tablet at bedtime as needed Orally Once a day Active Immunizations Vaccine Route Administration Date Status Comme nts COVID-19 Pfizer BioNTech Vaccine Unknown 09/05/2020 Adm inistered COVID-19 Pfizer BioNTech Vaccine Unknown 09/24/2020 Adm inistered Social History Tobacco Use: Social History Observation Description Date Details (start date - stop date) Former Smoker NA - NA Tobacco Use/Smoking Question Answer Notes Are you a: former smoker Additional Findings: Tobacco Non-User Cu rrent non-smoker,Ex-cigarette smoker,Ex-light cigarette smoker (1-9/day) Alcohol Screen Question Answer Notes Did you have a drink containing alcohol in the p ast year? No Points 0 Interpretation Negative Tobacco use other than smoking: Question Answer Notes Are you an other tobacco user? No Problems Problem Type SNOMED Code ICD Code Onset Dates Problem Status W/U Status Risk Notes Problem Acquired hammer toe of right foot (9828866978404615 ) Other hammer toe(s) (acquired), right foot (M20.41) Active confirmed Problem Acquired hammer toe of left foot (1906652976197041 ) Other hammer toe(s) (acquired), left foot (M20.42) Active confirmed Problem Polyneuropathy due to type 2 diabetes mellitus (989044940) Type 2 diabetes mellitus with diabetic polyneuropathy (E11.42) Active confirmed Plan Of Treatment Pending Test Test Name Order Date [id number] NAIL, 6 OR MORE 12/24/2020 [id number] NAIL, 6 OR MORE 04/09/2021 72983-HIIM SKIN LESIONS, OVER 4 04/09/20 21 48167-ANDE SKIN LESIONS, OVER 4 12/25/19 21 Insurance Providers Payer Name Payer Address Payer Phone Subscriber Number Group Number Insured Name Patient Relationship to Insured Coverage Start Date Coverage End Date [facility] [employer] Claims [address] [place] [id number] [phone] [id number] Kaitlynn Javier Self - patient is the insured Medical (General) History Medical History History ICD Code Anxiety asthma Back,Hip,and Knee pain CAD (Cholesterol) Cataracts Depression Diabetic Fibromyalgia High blood pressure Poor circulation Sciatica Transfusions Reflux Surgical History Surgery Date(Month/Year) about 10 surgeries Hospitalization History Reason Date(Month/Year) [facility], Heart issues 07/2020
--- OUTSIDE RECORDS SUMMARY | 2024-09-13 12:38 | XMS_ITS | Clinical Summary ---
Author Organization [facility] it Address [address] [place] [address] Care Team Providers Care Hold Worker Name Role Phone Unavailable Primary Care Provider Unavailabl e Social History Tobacco Use Types Packs/Day Years Used Date Smoking Tobacco: Never Assessed Comments Unknown Sex and Gender Information Value Date Recorded Sex Assigned at Not on file Legal Sex Female 12:42 AM EST Gender Identity Not on file Sexual Orientation Not on file Plan of Treatment Health Maintenance Due Date Last Done Comments DTaP,Tdap,and Td Vaccines (1 - Tdap) 1964 Zoster Vaccines (1 of 2) 1995 Pneumococcal Vaccine: 50+ Ye ars (1 of 1 - PCV) 2010 RSV Immunization Patients 60 + Years Old (1 - 1-dose 75+ series) 2020 COVID-19 Vaccine (2023-2 5 season) 2024 Influenza Vaccine (#1) 2024 Depression Screening 05/10/2024 Falls Risk Assessment 05/10/2024 Hepatitis C Screening 05/10/2024 Osteoporosis Screening (Bone Density Screening) 05/10/2024 Social Influencers of Health Screening 05/10/2024 HIB Vaccines Aged Out No longer eligi ble based on patient's age to complete this topic HPV Vaccines Aged Out No longer eligi ble based on patient's age to complete this topic Hepatitis A Vaccines Aged Out No long er eligible based on patient's age to complete this topic Hepatitis B Vaccines Aged Out No long er eligible based on patient's age to complete this topic IPV Vaccines Aged Out No longer eligi ble based on patient's age to complete this topic MMR Vaccines Aged Out No longer eligi ble based on patient's age to complete this topic Meningococcal ACWY Vaccine Aged Out N o longer eligible based on patient's age to complete this topic RSV Immunization Patients Un fouzia 20 months Aged Out No longer eligible b ased on patient's age to complete this topic Varicella Vaccines Aged Out No longer eligible based on patient's age to complete this topic
--- NOTE | 2024-09-13 13:05 | A.OFFVIS_ITS ---
Vital Signs 09/13/24 13:06 Height 5 ft 4.17 in Weight 194 lb 0.108 oz BMI 33.1 BP 158/64 H Blood Pressure Location Rt brachial Position Sitting Pulse 67 Pulse Source Pulse Oximeter Pulse Oximetry (%) 97 Oxygen Delivery Method Room Air Intake Visit Reasons: Cough Allergies erythromycin base Allergy (Intermediate, Verified 09/13/24 13:13) Fainting HPI Comments Details: The patient is here for pulmonary evaluation. The patient is a 79 year woman who apparently was in her usual health until back on fever after undergoing TAVR for her aortic stenosis. She started developing worsening shortness of breath and cough. She has had some chest congestion shortness of breath cough moderate severity. She has been on multiple courses of prednisone and also antibiotics. Without any significant improvement of her symptoms. More recently she did undergo a CTA which I personally reviewed demonstrating some areas of ground- glass opacities primarily at the bases of the lungs. This indeed could be a component of pneumonitis but also can be cardiogenic pulmonary edema. During that evaluation she also had blood work including a brain atretic peptide of 1800 +. Prior to this blood work her brain atretic peptide was always within normal ranges. This is a very drastic significant change for her. She was started on diuresis going up from 20 mg 40 mg of Lasix and she is feeling a lot better. 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 The patient never really had diagnosis of bronchitis or COPD or asthma prior to her surgery. In the meantime will going to assess her for obstructive airway disease is with pulmonary function studies and also blood work to assess her for pneumonitis. For now the prednisone has been bothering her is causing her some adverse effects specially with some discomfort of her feet. Will plan to start decreasing the prednisone increasing her inhaled steroids to try to minimize on the adverse effects. In addition to this the patient is having some daytime drowsiness. Her Drift score is elevated. She has significant cardiovascular risk factors. Will have her come back with PFTs and hopes sleep study and will review them and her follow-up in 6-8 weeks. If she has any issues prior to this she will call for an earlier assessment. [facility] Medical History (Updated 09/13/24 @ 21:50 by Marcos Ramos MD) Pulmonary nodules Cardiac asthma GOLD (obstructive sleep apnea) Dyspnea Pneumonitis CHF (congestive heart failure) Review of Systems Const Reports daytime sleepiness, Reports difficulty sleeping, Reports snoring and Reports weight gain Eyes Reports no additional complaints ENT Reports no additional complaints Card Denies chest pain and Reports dyspnea on exertion Resp Reports chest congestion, Reports cough, Reports dyspnea on exertion, Reports snoring and Reports wheezing GI Reports no additional complaints Musc Reports no additional complaints Skin/Breast Denies rash Neuro Reports no additional complaints Endo Reports no additional complaints Tex/Lymph Denies easy bleeding and Denies easy bruising Aller/Immun Reports wheezing Physical Exam Vital Signs: Last Vital Signs Pulse 67 09/13/24 13:06 BP 158/64 H 09/13/24 13:06 Pulse Ox 97 09/13/24 13:06 Oxygen Delivery Method Room Air 09/13/24 13:06 BMI result Body Mass Index 33.1 Const General: comfortable HEENT Head: Yes normocephalic Neck Neck: Yes supple Chest Chest palpation & inspection: normal inspection of the chest Resp Effort & Inspection: normal respiratory effort Auscultation: rales, no rhonchi, no wheezes and diminished lung sounds Cardio Heart sounds: S1 normal heart sound present and S2 normal heart sound present GI Palpation (GI): Soft to palpation Skin General skin exam: no rashes or lesions noted Extrem General: No clubbing, No cyanosis and Yes edema Results Reviewed Results Reviewed: personally reviewed CTA from [facility] with GGO/CHF Assessment & Plan Assessment & Plan (1) CHF (congestive heart failure): Code(s): I50.9 - Heart failure, unspecified Category: Medical Qualifiers: Heart failure type: unspecified Heart failure chronicity: unspecified Qualified Code(s): I50.9 - Heart failure, unspecified (2) Pneumonitis: Code(s): J98.4 - Other disorders of lung Category: Medical (3) Dyspnea: Code(s): R06.00 - Dyspnea, unspecified Category: Medical Qualifiers: Dyspnea type: dyspnea on exertion Qualified Code(s): R06.09 - Other forms of dyspnea (4) GOLD (obstructive sleep apnea): Code(s): G47.33 - Obstructive sleep apnea (adult) (pediatric) Category: Medical (5) Cardiac asthma: Code(s): I50.1 - Left ventricular failure, unspecified Category: Medical (6) Pulmonary nodules: Code(s): R91.8 - Other nonspecific abnormal finding of lung field Category: Medical Plan The patient has worsening respiratory symptoms ever since the TVAR. CTA demonstrates GGO, likely cardiogenic pulmonary edema along with a significantly elevated proBNP. Likely developing cardiac asthma. Not responding to the Prednisone. Feeling better since increasing lasix. diuresis as tolerated daily weights continue Trelegy Add Budesonide Wean down Prednisone Bloodwork PFTs Home PSG Needs to follow up with cardiology Orders: Orders Basic Metabolic Panel Today G47.33 - Obstructive sleep apnea (adult) (pediatric), I50.9 - Heart failure, unspecified, J98.4 - Other disorders of lung, R06.00 - Dyspnea, unspecified B Type Natriuretic Peptide Today G47.33 - Obstructive sleep apnea (adult) (pediatric), I50.9 - Heart failure, unspecified, J98.4 - Other disorders of lung, R06.00 - Dyspnea, unspecified Erythrocyte Sedimentation Rate Today G47.33 - Obstructive sleep apnea (adult) (pediatric), I50.9 - Heart failure, unspecified, J98.4 - Other disorders of lung, R06.00 - Dyspnea, unspecified Complete Blood Count Auto Diff Today G47.33 - Obstructive sleep apnea (adult) (pediatric), I50.9 - Heart failure, unspecified, J98.4 - Other disorders of lung, R06.00 - Dyspnea, unspecified Troponin-I High Sensitivity Today G47.33 - Obstructive sleep apnea (adult) (pediatric), I50.9 - Heart failure, unspecified, J98.4 - Other disorders of hailee ng, R06.00 - Dyspnea, unspecified Venous Blood Gas Today G47.33 - Obstructive sleep apnea (adult) (pediatric), I50.9 - Heart failure, unspecified, J98.4 - Other disorders of lung, R06.00 - Dyspnea, unspecified TAMMIE Reflex Titer and Pattern Today G47.33 - Obstructive sleep apnea (adult) (pediatric), I50.9 - Heart failure, unspecified, J98.4 - Other disorders of lung, R06.00 - Dyspnea, unspecified PFT pulmonary function test Today G47.33 - Obstructive sleep apnea (adult) (pediatric), I50.9 - Heart failure, unspecified, J98.4 - Other disorders of lung, R06.00 - Dyspnea, unspecified RT home sleep study Today G47.33 - Obstructive sleep apnea (adult) (pediatric), I50.9 - Heart failure, unspecified, J98.4 - Other disorders of lung, R06.00 - Dyspnea, unspecified Medications: New budesonide 0.5 mg (2 mL) inhalation BID 30 days 120 mL 11RF J44.9 - Chronic obstructive pulmonary disease, unspecified prednisone PO daily; Take 2 tabs daily x 7 days, then 1 tab daily x 14 days, then 1 tab every other day x 28 days 7 weeks 42 tabs 0RF Coding Level of Care Code New Pt Level 5 (20140) Diagnoses Congestive heart failure, unspecified HF chronicity, unspecified heart failure type I50.9 Heart failure type: unspecified Heart failure chronicity: unspecified Pneumonitis J98.4 Dyspnea on exertion R06.09 Dyspnea type: dyspnea on exertion GOLD (obstructive sleep apnea) G47.33 Cardiac asthma I50.1 Pulmonary nodules R91.8 Time Spent (min) 60
[2024-09-13 13:06] VITALS: BP 158/64; PULSE 67; O2SAT 97; BMI 33.1
== END 2024-09-13 14:00 | disposition home or self-care (01) ==
PROVIDERS: PCP Internal Medicine; Referring Provider Internal Medicine; Visit Provider Hospitalist
DX: J98.4 Other disorders of lung (principal); G47.33 Obstructive sleep apnea (adult) (pediatric); R91.8 Other nonspecific abnormal finding of lung field; I50.9 Heart failure, unspecified; I50.1 Left ventricular failure, unspecified
CPT/HCPCS: 99205

== ENCOUNTER 2024-09-13 12:29 | Outpatient (REF) | payer OTHER, SELFPAY ==
--- OUTSIDE RECORDS SUMMARY | 2024-09-13 14:14 | XMS_ITS | Clinical Summary ---
Author Organization [facility] it Address [address] [place] [address] Care Team Providers Care Lan Manager Name Role Phone Unavailable Primary Care Provider [...]
[2024-09-13 14:38] LABS: MANUAL DIFF FLAG NO
[2024-09-13 15:16] LABS: Basophils Percent Auto 0.2 % (0-2); Eosinophils Percent Auto 0.4 % (0-4); Imm Gran Abs Auto 0.11 X10*3/uL (0.00-0.03); Imm Gran Pct Auto 1.3 % (0.0-0.4); Lymphocytes Absolute Auto 0.9 X10*3/uL (1.2-4.9); Lymphocytes Percent Auto 10.8 % (20-40); Mean Corpuscular HGB Conc 30.6 g/dl (31.0-35.0); Mean Corpuscular Hemoglobin 25.6 pg (27.0-33.0); Mean Corpuscular Volume 83.9 fL (80.0-98.0); Mean Platelet Volume 9.1 fL (9.4-12.3); Monocytes Absolute Auto 0.3 X10*3/uL (0.1-1.2); Neutrophils Absolute Auto 7.1 x10*3/uL (2.0-8.3); Neutrophils Percent Auto 83.3 % (45-73); Platelet Count 249 X10*3/uL (160-400); Red Blood Count 4.29 X10*6/uL (4.20-5.50); Red Cell Distribution Width 16.6 % (11.0-16.0); White Blood Count 8.5 X10*3/uL (4.8-10.8)
[2024-09-13 15:44] LABS: Anion Gap 16 (12-20); Blood Urea Nitrogen 26 mg/dL (9-16); Calcium 10.5 mg/dL (8.4-10.2); Carbon Dioxide 29 mmol/L (22-29); Chloride 99 mmol/L (96-108); Estimated Glomerular Filt Rate > 60; Glucose Random 117 mg/dL (60-115); Potassium 4.7 mmol/L (3.3-5.1); Sodium 139 mmol/L (135-145)
[2024-09-13 15:47] LABS: B Type Natriuretic Peptide 117 pg/mL (<100)
[2024-09-13 15:56] LABS: Troponin-I High Sensitivity 18.6 ng/L (<3.5-17.0)
[2024-09-13 16:03] LABS: Erythrocyte Sedimentation Rate 34 MM/HR (0-20)
[2024-09-20 14:39] LABS: Anti Nuclear Antibody Pattern Nuclear, Homogeneous; Anti Nuclear Antibody Screen POSITIVE (NEGATIVE)
== END 2024-09-13 12:30 | disposition home or self-care (01) ==
LOC: HO.LAB 12:29
PROVIDERS: PCP Internal Medicine; Referring Provider Internal Medicine; Visit Provider Hospitalist
DX: G47.33 Obstructive sleep apnea (adult) (pediatric) (principal); R06.00 Dyspnea, unspecified; J98.4 Other disorders of lung; I50.9 Heart failure, unspecified; R91.8 Other nonspecific abnormal finding of lung field
CPT/HCPCS: 36415; 80048; 83880; 84484; 85025; 85652; 86038; 86039; 99202

== ENCOUNTER → 2024-11-13 13:54 | Outpatient (REF) | payer OTHER, SELFPAY ==
--- OUTSIDE RECORDS SUMMARY | 2024-11-13 17:09 | XMS_ITS | Data Portability ---
Author Organization [facility], 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 I reviewed conservative treatment options and surgical treatment options the patient today. Recommend initial round of splinting of her right wrist, but instructed her to avoid anti-inflammatorie s due to recurrent blood thinners, and pending heart surgery. She will follow-up in about 6 weeks time for recheck. If she still symptomatic we will consider possible cortisone injection at that juncture. [email or web address] Not available 05/09/2024 11:02:26 10/04/2024 10/04/2024 Patient seen und er general supervision of Dr. Reid who was available but who did not see the patient. HPI: 79-year-old seen today for follow-up regarding left knee arthritis. Patient received previous injection which worked well until recently. Has had recurrence of pain. Denies any injuries, falls or trauma. Examination: 79-year-old no acute distress alert and oriented. On examination of the knee no erythema or warmth noted. Tenderness to palpation appreciated. Calf is soft Impression: Left Knee arthritis Plan: Treatment options are discussed. Role of total knee arthroplasty reviewed. Patient has been doing well with conservative management therefore was offered repeat aspiration and injection which they accepted, following sterile preparation and informed consent 20 cc of straw-colored benign-appearing joint fluid are aspirated through superior lateral approach followed by injection of 40 mg Kenalog and 5 cc 1% lidocaine injected into the knee. Patient tolerated procedure well. Postinjection precautions reviewed. Follow-up on a p.r.n. basis. [facility] speech recognition plate and frame filter operator software was used to create portions of this document. An attempt at proofreading has been made to minimize errors. Please call for corrections. Not available 10/04/2024 17:46:56 10/30/2024 10/30/2024 Patient seen und er general supervision of Dr. Colunga who was available but who did not see the patient. HPI: 79-year-old female seen today regarding left knee pain. Patient had been seen at the beginning of September at which time I aspirated and injected her knee. Patient reports she had been doing well until she sustained a fall last week. Reports she lost her balance and falling landing on the knee. Reports increased soreness with ambulation since this occurred. Patient denies any numbness or tingling about the left lower extremity. Examination: 79-year-old female no acute distress ambulates with a normal antalgic gait with assistance from a walker. She is accompanied by friends. On examination left knee mild effusions appreciated, no erythema or warmth noted. Range of motion 3-100? ? ?. No gross instability. Extensor mechanism remains intact. Calf is soft. X-rays ordered, obtained and reviewed at [facility] 4 views left knee reveals arthritic change without evidence of acute fracture or dislocation. Impression: Left knee arthritis exacerbated secondary to recent fall Plan: Treatment options are reviewed. At this time as far too soon for repeat corticosteroid injection. We will see about getting a Visco supplementation injection approved. Falls precautions are discussed. Patient continued use of kccl-odp-bstpqbs medications as well as her knee sleeve. [facility] speech recognition plate and frame filter operator software was used to create portions of this document. An attempt at proofreading has been made to minimize errors. Please call for corrections. Not available 10/30/2024 14:42:01 Plan of Treatment Reminders Order Date Submit Date Provider Last Modified By Organization Details Last Modified Time Details Appointments INJECTIO N ONLY 15 2024 01:00P M She vinson PA-C Not available Not available Not available INJECTIO N ONLY 15 2024 01:15P M She Bouthille tte, PA-C Not available Not available Not available INJECTIO N ONLY 15 2024 01:15P M She José Miguel tte, PA-C Not available Not available Not available RECHECK 15 2024 10:45A M Deshawn Decker PA-C Not available Not available Not available Lab None recorded . Referral None recorded . Procedures None recorded . Surgeries None recorded . Imaging XR, knee, 3 view - room 119 3V R Knee 2024 025 [email or web address], [address], [address], [place], [address], 11/12/2024 08:19:11 XR, wrist, 3 or more view - room 105 est pt right wrist 3v 2023 024 [email or web address], [address], [address], [place], [address], 06/05/2024 07:34:26 Medication Orders None recorded . Patient TargetsNo targets recorded. Patient InstructionsNo instructions recorded. Reason for Referral None Reported. Results Created Date Observation Date Name Description Value Unit Range Abnormal Flag Note LastModifiedBy Organization Detail LastModifiedTime 05/09/20 24 05/09/2024 XR, wrist , 3 or more view [email or web address]:/ [email or web address] ?Encry pted=s hAaTro YD8dLq bEUv6g %2BXZw aYqtaq 0bqfl% 2Fg9IQ a4ajBk vP9nXo QUaueC m3YtLR FvZlgJ JJ8mAn HZtai3 1f0521 AC0Kqa 3mAWKq mKiQtr MwF [facility] [address], [place], [address], 05/09/2024 10:41:58 05/09/20 24 05/09/2024 XR, wrist , 3 or more view [email or web address] ?Encry pted=s hAaTro YD8dLq bEUv6g %2BXZw aYqtaq 0bqfl% 2Fg9IQ a4ajBk vP9nXo QUaueC m3YtLR FvZl JJ8Auburn HZtai3 3n1884 AC0Kqa 3mAWKq mKiQtr MwF [facility] [address], [place], [address], 05/09/2024 10:42:00 10/31/19 25 10/30/2024 XR, knee, 3 view http:/ [email or web address] ?Encry pted=s hAaTro YD8dLq bEUv6g %2BXZw aYqtaq 0bqfl% 2Fg9IQ a4ajBk vP9nXo QUaueC m3YtLR FvZl JJ8Auburn HZtai3 7w3679 AC0KqY 32BVqC iKiQtr MwF [facility] [address], [place], [address], 10/30/2024 14:36:23 10/31/19 25 10/30/2024 XR, knee, 3 view [email or web address]:/ [email or web address] ?Encry pted=s hAaTro YD8dLq bEUv6g %2BXZw aYqtaq 0bqfl% 2Fg9IQ a4ajBk vP9nXo QUaueC m3YtLR FvZl J8Auburn HZtai3 2m2225 AC0KqY 32BVqC iKiQtr MwF [facility] [address], [place], [address], 10/30/2024 14:36:25 Result Notes None recorded. Problems Name Problem SNOMED Code Status Onset Date Resolution Date Notes Provider Name and Address Organization Details Recorded Time Osteoarthri tis of left knee joint 4182270341785 09 Active 2023 Toshia flaherty PA-C [address], [place], [address], [facility] 4 10:05:54 Pain of right wrist 5022977629127 00 Active 2023 Reji Mishra PA-C [address], [place], [address], [facility] 4 08:14:57 Ulnar impaction syndrome of right wrist 5657028649071 9107 Active 2023 Reji Mishra PA-C [address], [place], [address], [facility] 4 11:02:34 Problem Notes None recorded. Procedures Surgical History Date Name Laterality Status Provider Name and Address Organization Details Recorded Time 5 JZKNEE INJ completed Deshawn Decker PA-C [address] [facility], [place], [address], [facility] 10/04/2024 17:45:55 5 JZ Knee Aspiration completed Deshawn Decker PA-C [address], [place], [address], [facility] 10/04/2024 17:45:46 4 Sports Knee 4&1 completed Lucio Henderson PA-C [address] [facility], [place], [address], [facility] 07/17/2024 14:19:52 4 Knee Kenalog 40mg 1cc Asp & Inj, L/R completed Lucio Henderson PA-C [address] [facility], [place], [address], [facility] 04/24/2024 12:58:29 4 Sports Knee Aspiration completed Lucio Henderson PA-C [address], [place], [address], [facility] 03/23/2024 14:17:27 4 JZKNEE INJ completed Mora Bunn PA-C [address], [place], [address], [facility] [place] [facility] 01/30/2024 21:59:55 Imaging Results Imaging Date Name Status LastModified by Organiz ation Details LastModified Time 05/09/2024 XR, wrist, 3 or more view completed [facility] [address], [place], [address], 05/09/2024 10:41:58 05/09/2024 XR, wrist, 3 or more view completed [facility] [address], [place], [address], 05/09/2024 10:42:00 10/30/2024 XR, knee, 3 view completed [facility] [address], [place], [address], 10/30/2024 14:36:23 10/30/2024 XR, knee, 3 view completed [facility] [address], [place], [address], 10/30/2024 14:36:25 Procedure Notes None recorded. Medical Equipment None Reported. Allergies Allergen ID Allergen Name Allergen Category Reaction Reaction Severity Criticality Documentation Date Start Date Code Code System Note Provider Name and Address Organization Details Recorded Time 156084 erythromy brock medicatio n Not available Not available Not available 02/10/2024 4053 RxNorm SAVANNAH mehta ID - [place] [facility] 09:36:05 Medications Name Sig Start Date Stop Date Status Note LastModified by Organization Details LastModified Time Prescript ion - Prior Authoriza tion Request active Prior auth request Not Available Not Available Not Available amoxicill in 500 mg capsule take capsule 1 hour before dental appointm ent (pt already has 3 other 500mg capsules ) active Not Available Not Available No t Available buspirone 5 mg tablet TAKE 1 TABLET BY MOUTH two (2) times a day DIRECTED . TAKE 20 MINUTES BEFORE MEALS active Not Available Not Available No t Available metformin 500 mg tablet TAKE 1 TABLET BY MOUTH two (2) times a day active Not Available Not Available No t Available prednison e 10 mg tablet TAKE 2 TABLETS BY MOUTH ONCE DAILY FOR 7 DAYS; 1 TAB ONCE DAILY FOR 14 DAYS; 1 TAB EVERY OTHER DAY FOR 28 DAYS active Not Available Not Available No t Available gabapenti n 600 mg tablet TAKE 1 TABLET BY MOUTH two (2) times a day. REPLACES 800MG active Not Available Not Available No t Available doxycycli ne hyclate 100 mg capsule TAKE 1 CAPSULE BY MOUTH ONCE DAILY FOR 7 DAYS active Not Available Not Available No t Available ipratropi um 0.5 mg-albute rol 3 mg (2.5 mg base)/3 mL nebulizat ion soln INHALE THE CONTENT OF 1 VIAL (3mls) VIA NEBULIZE R 4 (FOUR) TIMES DAILY active Not Available Not Available No t Available tizanidin e 2 mg tablet active Not Available Not Available Not Available albuterol sulfate 2.5 mg/3 mL (0.083 %) solution for nebulizat ion INHALE THE CONTENT OF 1 VIAL (3mls) VIA NEBULIZE R EVERY 6 HOURS NEEDED FOR SHORTNES S OF BREATH OR FOR WHEEZING active Not Available Not Available No t Available cetirizin e 10 mg tablet TAKE 1 TABLET BY MOUTH ONCE DAILY NEEDED FOR lip swelling . take until lip swelling resolves active Not Available Not Available No t Available cefpodoxi me 200 mg tablet TAKE 1 TABLET BY MOUTH two (2) times a day FOR 5 DAYS active Not Available Not Available No t Available ibuprofen 800 mg tablet TAKE 1 TABLET BY MOUTH EVERY 8 HOURS NEEDED FOR PAIN active Not Available Not Available No t Available benzonata te 200 mg capsule TAKE 1 CAPSULE BY MOUTH 3 (THREE) TIMES A DAY NEEDED FOR COUGH active Not Available Not Available No t Available FreeStyle Lancets 28 gauge USE TO TEST FINGER STICK BLOOD SUGAR ONCE DAILY active Not Available Not Available No t Available prednison e 20 mg tablet TAKE 2 TABLETS BY MOUTH ONCE DAILY FOR 5 DAYS active Not Available Not Available No t Available clobetaso l 0.05 % topical cream APPLY A THIN LAYER TO THE AFFECTED AREA two (2) times a day active Not Available Not Available No t Available penicilli n V potassium 500 mg tablet TAKE 1 TABLET BY MOUTH 4 (FOUR) TIMES DAILY FOR 7 DAYS active Not Available Not Available No t Available acetamino phen 300 mg-codein e 15 mg tablet TAKE 1 TABLET BY MOUTH EVERY 6 HOURS NEEDED FOR PAIN AND FOR COUGH. MAY repea 1 X AT BEDTIME active Not Available Not Available No t Available ciproflox acin 500 mg tablet TAKE 1 TABLET BY MOUTH IN THE MORNING AND 1 TABLET BEFORE BEDTIME FOR 7 DAYS active Not Available Not Available No t Available sulfameth oxazole 800 mg-trimet hoprim 160 mg tablet TAKE 1 TABLET BY MOUTH two (2) times a day FOR 10 DAYS active Not Available Not Available No t Available acetamino phen 500 mg tablet TAKE 1 TABLET BY MOUTH EVERY 8 HOURS NEEDED FOR PAIN active Not Available Not Available No t Available guaifenes in 100 mg/5 mL oral liquid TAKE 2 TEASPOON FUL (10mls) BY MOUTH 4 (FOUR) TIMES DAILY NEEDED FOR 5 DAYS FOR COUGH AND CONGESTI ON. TAKE WITH mucho WATER active Not Available Not Available No t Available acetamino phen ER 650 mg tablet,ex tended release TAKE 1 TABLET BY MOUTH EVERY 8 HOURS NEEDED FOR PAIN active Not Available Not Available No t Available meloxicam 7.5 mg tablet TAKE 1 TABLET BY MOUTH ONCE DAILY active Not Available Not Available No t Available sodium chloride 0.9 % irrigatio n solution MEZCLAR 1,000ML CON 480MG (12ML) DE GENTAMIC IN MEGAN INDICADO . INSTILAR 30ML EN LA VEJIGA CADA NOCHE ANTES DE DORMIR. active Not Available Not Available No t Available methenami ne hippurate 1 gram tablet TAKE 1 TABLET BY MOUTH two (2) times a day active Not Available Not Available No t Available amoxicill in 875 mg tablet TAKE 1 TABLET BY MOUTH 3 (THREE) TIMES A DAY FOR 7 DAYS active Not Available Not Available No t Available lorazepam 0.5 mg tablet take first dose one hour prior to procedur e. you may repeat dose 30 minutes prior to procedur e if needed. active Not Available Not Available No t Available gabapenti n 800 mg tablet TAKE 1 TABLET BY MOUTH 3 (THREE) TIMES A DAY active Not Available Not Available No t Available phenazopy ridine 95 mg tablet TAKE 2 TABLETS BY MOUTH 3 (THREE) TIMES A DAY NEEDED FOR dysuria active Not Available Not Available No t Available amitripty line 10 mg tablet TAKE 1 TABLET BY MOUTH ONCE DAILY active Not Available Not Available No t Available doxycycli ne monohydra te 100 mg capsule TAKE 1 CAPSULE BY MOUTH two (2) times a day FOR 7 DAYS active Not Available Not Available No t Available cephalexi n 500 mg capsule TAKE TWO CAPSULES BY MOUTH ONCE. TAKE 1 HOUR prior to procedur e active Not Available Not Available No t Available lidocaine 5 % topical patch APPLY 2 PATCH TOPICALL Y ONCE DAILY NEEDED FOR PAIN. remove patch after 12 hours active Not Available Not Available No t Available diclofena c potassium 50 mg tablet TAKE 1 TABLET BY MOUTH ONCE DAILY NEEDED FOR PAIN active Not Available Not Available No t Available omeprazol e 20 mg capsule,d elayed release TAKE 2 CAPSULES BY MOUTH ONCE DAILY BEFORE MEALS active Not Available Not Available No t Available budesonid e 0.5 mg/2 mL suspensio n for nebulizat ion INHALE THE CONTENT OF 1 VIAL (2MLS) VIA NEBULIZE R two (2) times a day active Not Available Not Available No t Available Citrate of Magnesia oral TAKE 150ml BY MOUTH ONCE active Not Available Not Available No t Available enoxapari n 150 mg/mL subcutane ous syringe INJECT THE CONTENT OF 1 syringe (150 mg) SUBCUTAN EOUSLY ONCE IN THE MORNING MONDAY 02/12 active Not Available Not Available No t Available oxycodone -acetamin ophen 2.5 mg-325 mg tablet TAKE 1 TABLET BY MOUTH ONCE DAILY AT BEDTIME NEEDED FOR PAIN FOR 7 DAYS. MAY TAKE 1 TABLETS NEEDED active Not Available Not Available No t Available bisacodyl 5 mg tablet,de layed release TAKE 1 TABLET BY MOUTH ONCE DAILY NEEDED FOR CONSTIPA TION active Not Available Not Available No t Available furosemid e 20 mg tablet TAKE 2 TABLETS BY MOUTH TUESDAY, Y, AND tuesday. TAKE 1 TABLET BY MOUTH TUESDAY, TUESDAY, TUESDAY , TUESDAY active Not Available Not Available No t Available mirtazapi ne 15 mg tablet TAKE 1 TABLET BY MOUTH ONCE DAILY AT BEDTIME FOR insomnia active Not Available Not Available No t Available clobetaso l 0.05 % topical ointment APPLY TO THE AFFECTED AREA TOPICALL Y 2 X EACH WEEK. apply a thin layer active Not Available Not Available No t Available estradiol 0.01% (0.1 mg/gram) vaginal cream INSERT 1 gramos VAGINALL Y 3 X EACH WEEK DIRECTED active Not Available Not Available No t Available gentamici n 40 mg/mL injection solution MEZCLAR 480MG (12ML) DE GENTAMIC IN CON 1,000 ML DE 0.9% SODIUM CHLORIDE MEGAN INDICADO . IRRIGAR LA VEJIGA CON 30 ML CADA NOCHE ANTES DE DORMIR. active Not Available Not Available No t Available zolpidem 10 mg tablet TAKE 1 TABLET BY MOUTH ONCE DAILY AT BEDTIME FOR SLEEP active Not Available Not Available No t Available methylpre dnisolone 4 mg tablets in a dose pack TAKE DIRECTED active Not Available Not Available No t Available albuterol sulfate HFA 90 mcg/actua tion aerosol inhaler INHALE 2 PUFF BY MOUTH EVERY 6 HOURS NEEDED FOR SHORTNES S OF BREATH OR FOR WHEEZING active Not Available Not Available No t Available BD Luer-Leanna Syringe 3 mL 21 gauge x 1 1/2 USAR SANDY JERINGUI LLA PARA MEZCLAR LA SOLUCION DE INSTILAC ION DE GENTAMIC IN SANDY VEZ AL MES MEGAN INDICADO . 07/17 completed Not Available Not Available Not Available fluoxetin e 20 mg capsule TAKE 1 CAPSULE BY MOUTH EVERY MORNING FOR depresio n active Not Available Not Available No t Available doxycycli ne hyclate 100 mg tablet TAKE 1 TABLET BY MOUTH ONCE DAILY FOR 7 DAYS active Not Available Not Available No t Available amoxicill in 500 mg-potass ium clavulana te 125 mg tablet TAKE 1 TABLET BY MOUTH two (2) times a day FOR 7 DAYS active Not Available Not Available No t Available simethico ne 80 mg chewable tablet CHEW AND SWALLOW 1 TAB BY MOUTH 3 (THREE) TIMES A DAY AFTER MEALS AND AT BEDTIME NEEDED FOR gas active Not Available Not Available No t Available oxycodone 5 mg tablet TAKE 1 TABLET BY MOUTH two (2) times a day NEEDED FOR PAIN active Not Available Not Available No t Available Vitamin D3 25 mcg (1,000 unit) tablet TAKE 1 TABLET BY MOUTH ONCE DAILY DIRECTED active Not Available Not Available No t Available rosuvasta tin 10 mg tablet TAKE 1 TABLET BY MOUTH ONCE DAILY active Not Available Not Available No t Available metoprolo l tartrate 25 mg tablet TAKE 1 TABLET BY MOUTH two (2) times a day. hold for sbp <100 and HR <60 active Not Available Not Available No t Available ferrous fumarate 324 mg (106 mg iron) tablet TAKE 1 TABLET BY MOUTH EVERY 48 HOUR active Not Available Not Available No t Available nitrofura ntoin monohydra te/macroc rystals 100 mg capsule TAKE 1 CAPSULE BY MOUTH two (2) times a day FOR 5 DAYS active Not Available Not Available No t Available lactulose 10 gram/15 mL oral solution TAKE 15mls BY MOUTH ONCE DAILY active Not Available Not Available No t Available Lubricant Eye Drops 0.5 % INSTILL 1 DROP IN EACH EYE two (2) times a day active Not Available Not Available No t Available FreeStyle Lite Meter kit USE TO TEST FINGER STICK BLOOD SUGAR DIRECTED active Not Available Not Available No t Available FreeStyle Lite Strips USE TO TEST FINGER STICK BLOOD SUGAR ONCE DAILY active Not Available Not Available No t Available FeroSul 325 mg (65 mg iron) tablet TAKE 1 TABLET BY MOUTH ONCE DAILY active Not Available Not Available No t Available diclofena c 1 % topical gel APPLY TO THE AFFECTED AREA 4 (FOUR) TIMES DAILY active Not Available Not Available No t Available Qutenza 8 % topical kit Apply Topicall y Once for neuropat hic foot pain. May apply for patches to cover the area active Not Available Not Available No t Available Pradaxa 150 mg capsule TAKE 1 CAPSULE BY MOUTH two (2) times a day active Not Available Not Available No t Available Combivent Respimat 20 mcg-100 mcg/actua tion solution for inhalatio n INHALE 1 PUFF BY MOUTH 4 (FOUR) TIMES DAILY NEEDED FOR SHORTNES S OF BREATH OR FOR WHEEZING active Not Available Not Available No t Available Myrbetriq 25 mg tablet,ex tended release TAKE 1 TABLET BY MOUTH ONCE DAILY active Not Available Not Available No t Available Linzess 290 mcg capsule TAKE 1 CAPSULE BY MOUTH ONCE DAILY active Not Available Not Available No t Available Breo Ellipta 200 mcg-25 mcg/dose powder for inhalatio n INHALE 1 PUFF BY MOUTH ONCE DAILY active Not Available Not Available No t Available Pradaxa 110 mg capsule TAKE TWO CAPSULES BY MOUTH ONCE DAILY active Not Available Not Available No t Available Trelegy Ellipta 200 mcg-62.5 mcg-25 mcg powder for inhalatio n INHALE 1 PUFF BY MOUTH ONCE DAILY active Not Available Not Available No t Available [facility] COVID-19 Antigen Rapid Home Test kit USE DIRECTED NEEDED active Not Available Not Available No t Available Paxlovid 300 mg (150 mg x 2)-100 mg tablets in a dose pack PLEASE SEE ATTACHED FOR DETAILED DIRECTIO NS active Not Available Not Available No t Available Vitals Date Recorded Body height Provider Name an d Address Organization Details Last Updated DateTime 04/24/2024 162.56 cm LUIZ LEMUSDASIAASAD [facility] 04/24/2024 10:56:35 Date Recorded Body height Body mass index (BMI) Body weight Provider Name and Address Organization Details Last Updated DateTime 05/09/2024 162.56 cm 34.7 kg/m2 35559.66 g HERMAN SARAVIA [facility] 05/09/2024 10:35:43 Date Recorded Body height Body mass index (BMI) Body weight Provider Name and Address Organization Details Last Updated DateTime 07/17/2024 162.56 cm 34.7 kg/m2 49435.66 g PATRICK MAXWELL [facility] 07/17/2024 14:01:16 Date Recorded Body height Body mass index (BMI) Body weight Provider Name and Address Organization Details Last Updated DateTime 10/04/2024 162.56 cm 34.3 kg/m2 45380.47 g ELIUD FRIED [facility] 10/04/2024 17:18:03 Date Recorded Body height Body mass index (BMI) Body weight Provider Name and Address Organization Details Last Updated DateTime 10/30/2024 162.56 cm 34.3 kg/m2 28167.47 g NAINA MARLEY [facility] 10/30/2024 14:27:23 Social History None recorded. Functional Status None recorded. Mental Status None recorded. Family History Nothing Reported. Medical History No medical history recorded. Gynecological HistoryNo gynecological history recorded. Obstetrics History GPAL:G 0 P 0 0 0 0 Past Encounters Encounter ID Performer Location Encounter Start Date Encounter Closed Date Diagnosis/Indication Diagnosis SNOMED-CT Code Diagnosis ICD10 Code Diagnosis Note [id number] Mora Bunn PA-C [address] [place] [address] 01/26/2024 13:24:55 02/21/2024 11:50:59 Pain of left knee joint [id number] 66603 M25.562 You have been provided with a cortisone injection in order to reduce the pain and inflammati on that you are experienci ng. The injection consists of two medication s. Cortisone (an anti-infla mmatory that will take 48-72 hours to take effect) and Lidocaine (a numbing agent that will last 2-3 hours). Please note that not everyone will have a lasting response following the injection. PATIENT INSTRUCTIO NSOnce the Lidocaine wears off, you may have an increase in your pain. I recommend icing the affected area for 20 minutes 3-4 times per day.It is recommende d that you refrain from any high level activities using the joint or limb that was injected for approximat ariadna 24-48 hours. Normal day-to-day activities are generally not a problem.PO SSIBLE SIDE EFFECTSInd ividuals with dark complexion s may experience some skin discolorat ion locally at the site of the injection. There is the possibilit y of an increase in discomfort within 48 hours following the injection. This is called a ? f lare? . To help minimize the chances of this, please see the post-injec tion instructio ns above.Ther e is a less than 1% chance of an infection. If you notice any signs of infection (redness, warmth, drainage, fever greater than 100 degrees) please call our office or contact us through the portal [facility]. [id number] KYLE Omer [address] [place] [address] 02/10/2024 09:18:53 03/10/2024 08:25:42 Osteoarthritis of left knee joint [id number] 53289 M17.12 [id number] KYLE Pro [address] [place] [address] 03/23/2024 12:41:24 04/17/2024 08:33:56 Effusion of joint of left knee [id number] 05826 M25.147 [id number] KYLE Pro [address] [place] [address] 04/24/2024 10:47:26 05/14/2024 08:46:17 Pain of left knee joint [id number] 46774 M25.562 Osteoarthr itis of left knee joint [id number] 55949 M17.12 [id number] Reji [place], PA-C [place] [address] [place] [address] 05/09/2024 10:29:01 06/05/2024 07:34:26 Pain of right wrist [id number] 42952 M25.531 Ulnar impa ction syndrome of right wrist [id number] 2815991 M25.064 [id number] KYLE Pronie [address] [place] [address] 07/17/2024 13:55:43 08/12/2024 09:14:39 Osteoarthritis of left knee joint [id number] 01819 M17.12 [id number] Deshwan Decker PA-C [facility] - [place] [address] [place] [address] 10/04/2024 17:06:37 10/19/2024 13:41:33 Osteoarthritis of left knee joint [id number] 40667 M17.12 [id number] KYLE [facility] - [place] [address] [place] [address] 10/30/2024 14:12:50 11/12/2024 08:19:11 Pain of left knee region [id number] 47258 M25.562 Osteoarthr itis of left knee joint 6891542954 65933 M17.12 Health Concerns Section Related Observation LastModified by Organization Detai ls LastModified Time None Recorded Concern Status LastModified by Organization Details LastModified Time None Recorded Advance Directives Directive None Recorded Payers Encounter Date Sequence Insurance Name Policy Number Policy Orozco Covered Member ID Orozco Member ID Guarantor Name 04/24/2024 1 [facility] [employer] - DOS ON OR AFTER 2022 - ONE CARE (MEDICARE REPLACEMENT/ADV ANTAGE - HMO) Kaitlynn Javier [id number] Kaitlynn Javier 05/09/2024 1 [facility] [employer] - DOS ON OR AFTER 2022 - ONE CARE (MEDICARE REPLACEMENT/ADV ANTAGE - HMO) Kaitlynn Javier [id number] Kaitlynn Javier 07/17/2024 1 [facility] [employer] - DOS ON OR AFTER 2022 - ONE CARE (MEDICARE REPLACEMENT/ADV ANTAGE - HMO) Kaitlynn Javier [id number] Kaitlynn Javier 10/04/2024 1 [facility] - DOS ON OR AFTER 2022 - ONE CARE (MEDICARE REPLACEMENT/ADV ANTAGE - HMO) Kaitlynn Javier [id number] Kaitlynn Javier 10/30/2024 1 [facility] - DOS ON OR AFTER 2022 - ONE CARE (MEDICARE REPLACEMENT/ADV ANTAGE - HMO) Kaitlynn Javier [id number] Kaitlynn Javier Notes Date Note Type Note Provider Name and Address Organization Details Recorded Time 04/24/2024 text/html I am seeing the patient today under the supervision of Dr. Amaya who was available but who did not see the patient. HPI:Patient presents today follow-up regarding their {{Left* Right Bi-late ral}} knee. They have had difficulty up and down stairs sitting standing. Patient had previous cortisone injections approximately 3 months ago onto her left knee and she has also had 2 previous aspirations of this knee due to recurrent joint effusions. Problems ambulating. Asuq-lxr-yotswdk medications are helping somewhat but not significantly. Pain is constant aching sometimes sharp pain with giving out sensations. Past family, medical, social history and review of systems has been reviewed, updated and is located in the patient? s chart. Examination:The patient is well appearing and in no apparent distress. Alert and oriented x3. Gait is symmetric. Examination of the {{Left* Right Bi-late ral}} knee reveals no evidence of any edema, erythema, or warmth. No Deformity. Range of motion of the knee limited with mild discomfort at the end ranges. Mild effusion. Does have some tenderness to palpation about the medial hemijoint line. No tenderness to palpation about the lateral hemijoint line. Patellofemoral crepitus is noted. mild lateral ligamentous laxity. Negative Jorden? s . Calf is supple and nontender. Neurovascularly intact distally. Impression:{{Left* Ri ght Bi-lateral}} Knee osteoarthritis Plan:We discussed the role of conservative management including medications, physical therapy, injection and bracing. At this point the patient was to proceed with aspiration and injection. Please see procedure note. They will follow up with us as scheduled. Lucio Henderson PA-C [address], [place], [address], [facility] 04/24/2024 12:58:57 05/09/2024 text/html I am seeing this patient under the supervision of Dr. Nunez who was available but who did not see the patient Chief Complaint: New evaluation for right wrist pain HPI: 78-year-old dkknq-fbht-rlvjjene female presents today with a 3-month history of ulnar-sided right wrist pain without any injury at the onset. 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 She has not had any treatment of her wrist pain. Presents for evaluation Reji Mishra PA-C [address], [place], [address], [facility] 05/09/2024 11:02:53 07/17/2024 text/html I am seeing the patient today under the supervision of Dr. Amaya who was available but who did not see the patient. HPI:Patient presents today follow-up regarding their {{Left* Right Bi-late ral}} knee. They have had difficulty up and down stairs sitting standing. Previously had aspiration of her knee as well as cortisone injection about 3 months ago. Patient states that she still see some benefit from the injection. Has not had recurrent swelling in her knee. Problems ambulating. Daxa-lng-ihbswum medications are helping somewhat but not significantly. Pain is constant aching sometimes sharp pain with giving out sensations. Past family, medical, social history and review of systems has been reviewed, updated and is located in the patient? s chart. Examination:The patient is well appearing and in no apparent distress. Alert and oriented x3. Gait is symmetric. Examination of the {{Left* Right Bi-late ral}} knee reveals no evidence of any edema, erythema, or warmth. No Deformity. Range of motion of the knee limited with mild discomfort at the end ranges. Minimal effusion. Does have some tenderness to palpation about the medial hemijoint line. No tenderness to palpation about the lateral hemijoint line. Patellofemoral crepitus is noted. mild lateral ligamentous laxity. Negative Jorden? s . Calf is supple and nontender. Neurovascularly intact distally. Impression:{{Left* Ri ght Bi-lateral}} Knee osteoarthritis Plan:We discussed the role of conservative management including medications, physical therapy, injection and bracing. At this point the patient was to proceed with injection only and no aspiration. Please see procedure note. Since patient had greater than about 3 months of relief we will leave follow-up open-ended for now. Lucio Henderson PA-C [address] [facility] [address], [place], [address], [facility] [place] [facility] 07/17/2024 14:20:05 OBGyn Episode No OBEpisode recorded.
--- OUTSIDE RECORDS SUMMARY | 2024-11-13 17:09 | XMS_ITS | Patient Health Record ---
[facility] Address [address] [place] [address] Care Team Providers Care Budder Name Role Phone Gokul Cleveland MD Primary Care Provider Ty Saravia Unavailable [phone] Allergies Allergen (clinical drug ingredient) Drug/Non Drug [...] Active Procto-Med HC 2.5 % 1 application Cereal Miller ally Twice a day Active Aspirin 81 [...] Problem Acquired hammer toe of right foot (4283201546435093 ) Other hammer toe(s) (acquired), right foot (M20.41) Active confirmed Problem Acquired hammer toe of left foot (5554983347178691 ) Other hammer toe(s) (acquired), left foot (M20.42) Active confirmed Problem Polyneuropathy due to type 2 diabetes mellitus (104393076) Type 2 diabetes mellitus with diabetic polyneuropathy (E11.42) Active confirmed Plan Of Treatment Pending Test Test Name Order Date [id number] NAIL, 6 OR MORE 12/24/2020 [id number] NAIL, 6 OR MORE 04/09/2021 [id number] SKIN LESIONS, OVER 4 04/09/20 21 [id number] SKIN LESIONS, OVER 4 12/25/19 21 Insurance Providers Payer Name Payer Address Payer Phone Subscriber Number Group Number Insured Name Patient Relationship to Insured Coverage Start Date Coverage End Date [facility] [employer] Claims [address] [place] [phone] [id number] Kaitlynn Javier Self - patient is the insured Medical (General) History Medical History History ICD Code Anxiety asthma Back,Hip,and Knee pain CAD (Cholesterol) Cataracts Depression Diabetic Fibromyalgia High blood pressure Poor circulation Sciatica Transfusions Reflux Surgical History Surgery Date(Month/Year) about 10 surgeries Hospitalization History Reason Date(Month/Year) [facility], Heart issues 07/2020
--- OUTSIDE RECORDS SUMMARY | 2024-11-13 17:09 | XMS_ITS | Clinical Summary ---
Author Organization [facility] it Address [address] [place] [address] Care Team Providers Care Pre School Manager Name Role Phone Unavailable Primary Care [...] DTaP,Tdap,and Td Vaccines (1 - Tdap) 1964 Pneumococcal Vaccine: 50+ Ye ars (1 of 1 - PCV) 1995 Zoster Vaccines (1 of 2) 1995 RSV Immunization Adult Patie nts (1 - 1-dose 75+ series) 2020 COVID-19 Vaccine ( - 2023-2 5 season) 2024 Depression Screening 05/10/2024 Falls Risk Assessment 05/10/2024 Hepatitis C Screening 05/10/2024 Osteoporosis Screening (Bone Density Screening) 05/10/2024 Social Influencers of Health Screening 05/10/2024 Influenza Vaccine (Season Ended) 2025 HIB Vaccines Aged Out No longer eligi [...] patient's age to complete this topic Meningococcal B Vaccine Aged Out No l onger eligible based on patient's age to complete this topic RSV Immunization Patients Un fouzia 20 months Aged Out No longer eligible b ased on patient's age to complete this topic Varicella Vaccines Aged Out No longer eligible based on patient's age to complete this topic
--- OUTSIDE RECORDS SUMMARY | 2024-11-13 17:10 | XMS_ITS | Data Portability ---
Author Organization [employer] [facility] Address [address] [place] [address] Care Team Providers Care Armor Officer Name Role Phone HIM CCA OTHER Assessment Encounter Date Assessment Date Assessment LastModified by Organization Details LastModified Time 06/20/2024 06/20/2024 As noted, we were called to see this patient regarding concerns of cough, dyspnea, chest pain. Evaluation in the field was performed by my multimedia specialist colleague, as noted above, I provided real-time [...] evaluation for further evaluation and treatment in [facility] ED. Expect called to [facility] ED. Plan: ED Primary care, consider followup ED visit Disposition: We discussed the situation and I recommended referred to the ED. [email or web address] Not available 06/20/2024 14:45:50 09/06/2024 09/06/2024 Evaluation in the field was performed by my multimedia specialist colleague, as noted above, I provided real-time [...] there. She still refuses. -She has a OUTSOLE TACKER at home but refused to allow us to contact any family to help make decisions. However, the OUTSOLE TACKER called her daughter who came to the home and has convinced the patient to go to the ED. -911 called for transport Disposition: Transport to [facility] ED Not available 09/06/2024 17:04:47 Plan of Treatment Reminders Order Date Submit Date Provider Last Modified By Organization Details Last Modified Time Details Appointments None recorded. Lab rapid flu (A+B) 2024 025 [facility], [address] [place] [address], [id number] 5 21:44:12 rapid SARS CoV 2 Ag, QL IA, respiratory specimen [address], [id number] 5 21:44:33 rapid SARS CoV 2 Ag, QL IA, respiratory specimen 2023 024 [facility], [address] [place] [address], [id number] 4 12:59:53 Referral None recorded. Procedures None recorded. Surgeries None recorded. Imaging electrocard iogram 2023 024 [email or web address] [facility], [address] [place] [address], [id number] 4 15:06:16 Medication Orders acetaminoph en 500 [...] IA, respiratory specimen positi ve Not Available [facility] ed [address] [place] [address], [id number] 11/26/2023 12:59:45 06/20/20 24 06/20/2024 elect massimo [email or web address] am No observ ation record ed. [address], [phone] 06/20/2024 20:37:33 Result Notes None recorded. Procedures Surgical History None recorded. Imaging Results Imaging Date Name Status LastModified by Organization Details LastModified Time 06/20/2024 electrocardiogram completed [address], [address] 06/20/2024 20:37:33 Procedure Notes None recorded. Medical Equipment None Reported. Allergies Allergen ID Allergen Name Allergen Category Reaction Reaction Severity Criticality Documentation Date Start Date Code Code System Note Provider Name and Address Organization Details Recorded Time 26461 erythromy brock medicatio n Not available Not available Not available 06/20/2024 4053 RxNorm Not Available [employer] - production 13:06:43 8627 azithromy brock medicatio n Not available Not available Not available 05/29/2024 68786 RxNorm Not Available [facility] - production 03:45:39 Medications Name Sig Start Date Stop [...] Address Organization Details Last Updated DateTime 3 76627.4 8 g 99 % 99 % 16 /min 105 /min 146 mm[Hg] 73 mm[Hg] Not Available [email or web address] 3 11:31:18 Date Recorded Oxygen saturation Oxygen saturation in Arterial blood by Pulse oximetry Body temperature Heart rate Respiratory rate Systolic blood pressure Diastolic blood pressure Provider Name and Address Organization Details Last Updated DateTime 3 98 % 98 % 98.6 [degF] 68 /min 18 /min 132 mm[Hg] 76 mm[Hg] Not Available [employer] 3 20:48:07 Date Recorded Body weight Body temperature Respiratory rate Heart rate Oxygen saturation Oxygen saturation in Arterial blood by Pulse oximetry Systolic blood pressure Diastolic blood pressure Provider Name and Address Organization Details Last Updated DateTime 4 18570.6 24 g 99.1 [degF] 18 /min 96 /min 98 % 98 % 146 mm[Hg] 74 mm[Hg] Not Available [employer] 4 12:50:41 Date Recorded Oxygen saturation Oxygen saturation in Arterial blood by Pulse oximetry Respiratory rate Heart rate Body temperature Systolic blood pressure Diastolic blood pressure Provider Name and Address Organization Details Last Updated DateTime 4 99 % 99 % 28 /min 76 /min 98.4 [degF] 152 mm[Hg] 86 mm[Hg] Not Available [employer] 4 14:15:40 Date Recorded Oxygen saturation Oxygen saturation in Arterial blood by Pulse oximetry Respiratory rate Heart rate Body temperature Systolic blood pressure Diastolic blood pressure Provider Name and Address Organization Details Last Updated DateTime 5 94 % 94 % 32 /min 110 /min 101.1 [degF] 166 mm[Hg] 78 mm[Hg] Not Available [employer] 5 15:32:44 Social History None recorded. Functional Status None recorded. Mental Status None recorded. Family History Nothing Reported. Medical History No medical history recorded. Gynecological HistoryNo gynecological history recorded. Obstetrics History GPAL:G 0 P 0 0 0 0 Past Encounters Encounter ID Performer Location Encounter Start Date Encounter Closed Date Diagnosis/Indication Diagnosis SNOMED-CT Code Diagnosis ICD10 Code Diagnosis Note [id number] Yee Summers MD [facility] [address] [place] [phone] 01/14/2023 11:31:17 01/15/2023 23:03:10 Chronic pain syndrome 627211706 G89.4 77 year old female with neuropathi [...] up to discuss additional pain control options. [id number] Cr Carrington MD [facility] [address] [place] [phone] 07/01/2023 20:48:03 07/02/2023 11:43:22 Pain of knee region 0021848929 M25.569 Patient reporting acute on chronic knee pain. History of osteoarthr itis, anticoagul ation, and CKD. Doubt gout or septic arthritis given multimedia specialist examinatio n and known history of OA. Sue rosenthal not a good candidate for ketorolac and has been taking acetaminop hen according to age-approp riate dosing. Advised follow-up with PCP and orthopedic s for re-evaluat ion. [id number] HUMZA GARLAND MD [facility] [address] [place] [phone] 11/26/2023 12:50:38 11/27/2023 17:18:04 Acute COVID-19 1574995827 U07.1 Evaluation in the field was performed by my multimedia specialist colleague, as noted above, I provided real-time [...] but [facility] pharmacy : [facility] @ [phone] does not carry it.Pt with low grade [...] cough, N/V/D, weakness or any other concerns. [id number] Angel Rabago MD [facility] [address] [place] [phone] 06/20/2024 14:15:26 06/20/2024 18:05:31 Chest pain 61646966 R07.9 [id number] Missy Forrest MD [facility] [address] [place] [phone] 09/06/2024 15:28:58 09/06/2024 18:55:01 Upper respiratory infection 22368687 J06.9 Acute resp iratory failure 56694004 J96.00 Acute exac erbation of chronic obstructive pulmonary disease 122294748 J44.1 Health Concerns Section Related Observation LastModified by Organization Detai ls LastModified Time None Recorded Concern Status LastModified by Organization Details LastModified Time None Recorded Advance Directives Directive None Recorded Payers Encounter Date Sequence Insurance Name Policy Number Policy Orozco Covered Member ID Orozco Member ID Guarantor Name 01/14/2023 1 [facility] - DOS ON OR AFTER 2022 - DUAL ELIGIBLE - CARE HOME OPTIONS AND ONE CARE (MEDICARE REPLACEMENT/ADV ANTAGE - HMO) Kaitlynn Concepcion [id number] Kaitlynn Concepcion 07/01/2023 1 [facility] - DOS ON OR AFTER 2022 - DUAL ELIGIBLE - CARE HOME OPTIONS AND ONE CARE (MEDICARE REPLACEMENT/ADV ANTAGE - HMO) Kaitlynn Concepcion [id number] Kaitlynn Concepcion 11/26/2023 1 [facility] - DOS ON OR AFTER 2022 - DUAL ELIGIBLE - CARE HOME OPTIONS AND ONE CARE (MEDICARE REPLACEMENT/ADV ANTAGE - HMO) Kaitlynn Concepcion [id number] Kaitlynn Concepcion 06/20/2024 1 [facility] - DOS ON OR AFTER 2022 - DUAL ELIGIBLE - CARE HOME OPTIONS AND ONE CARE (MEDICARE REPLACEMENT/ADV ANTAGE - HMO) Kaitlynn Concepcion [id number] Kaitlynn Concepcion 09/06/2024 1 [facility] - DOS ON OR AFTER 2022 - DUAL ELIGIBLE - CARE HOME OPTIONS AND ONE CARE (MEDICARE REPLACEMENT/ADV ANTAGE - HMO) Kaitlynn Concepcion [id number] Kaitlynn Concepcion Notes Date Note Type Note [...] .................... .................... .................... .................... .................... .................... . Wind Tunnel Engineer Note From Lonnie Garcia: pt requesting visit [...] with ketorolac. Vitals assessed. Pt denies n/v/d/f/sob/cp. C contacted, [facility] recommends the pt reach out to her PCP about a refill of the percocet or upping the dose on her gabapentin. Pt educated on s/s warranting a 911 call/trip to the hospital. Wind Tunnel Engineer Allergies: Azithromycin .................... .................... .................... .................... .................... .................... .................... . Disposition: Fulfilled Yee Summers MD [address] [facility],[address], [place], [phone], COLEMAN ZAMORA 01/14/2023 11:36:50 07/01/2023 text/html HPI: mbr with complaints of knee swollen/warm and Painful /10 making it difficult to walk,. requesting [facility] Protocol Used: Knee Swelling Protocol-Based Disposition: Consider JOSE ENRIQUE Geiger Community clinician, MD/SAND MOLDER triage, PCP, or Urgent Care Visit within [...] .................... .................... .................... .................... .................... .................... . Wind Tunnel Engineer Note From Prieto Prasad: Dispatched to the [...] . Disposition: Fulfilled Cr Carrington MD [address] [facility],[address], [place], [phone], [employer] 07/01/2023 22:02:51 11/26/2023 text/html HPI: members daughter called, reports member with fever 99-101, cough, bodyaches, x 4 days. Tested negative for COVID on Tue, and then tested again last night and was positive. She is requesting an [facility] visit for assessment and to discuss need for Paxlovid. .................... .................... .................... .................... .................... .................... .................... . CRC Nurse Triage Notes (Lewis White): Comments: HPI reviewed by this RN, no further information needed to process visit -Claire White RN .................... .................... .................... .................... .................... .................... .................... . Wind Tunnel Engineer Note From Brennen Lyman: Pt co headache cough and fever. Pt Covid POs. Pt symptoms x4 days. Pt denies sob cp NVD. Pt on thinners. Baseline vitals assessed lungs clear , Covid swab POs. [facility] contacted and advised rest and fluids. Pt advised red flags that would indicate the ER. Pt advised to follow up with pcp. Wind Tunnel Engineer Allergies: Azithromycin .................... .................... .................... .................... .................... .................... .................... . Disposition: Fulfilled HUMZA GARLAND MD [address], [place], [address], LUIS EDUARDO - COLEMAN GEIGER 11/26/2023 13:40:25 06/20/2024 text/html HPI: Member's daughter [...] treatment. Francoise verbalized comprehension and [facility] take [facility] to ED. Member is s/p heart valve replacement, last week. PMH includes: DVT lower leg, paraplegia, DM II, aortic valve stenosis, COPD, chronic edema, MDD, anxiety. This CRU nurse consulted with FELY nurse. Wait time for visit can be [...] Comments: Assess s/s and treat as indicated Wind Tunnel Engineer Organization Information for Nick Casey [employer] Name: [employer], [employer].? Address: [address] [place] [address], Facing Machine Operator: Dany Chand MD CLIA No.: [id number] Wind Tunnel Engineer POC Test Results from Nick Casey - [facility] EKG (14:10:14) EKG test performed. Attachments uploaded as part of this test result can be found under Documents section. .................... .................... .................... .................... .................... .................... .................... . Wind Tunnel Engineer Note From Amnadickson Nick: Dispatched to above address for chest pain [...] EKG showed sinus rhythm with LBBB, uploaded. [facility] contacted, spoke with Dr. Rabago, advised of patient complaints, exam findings and test results. [facility] recommended patient be transported to ER for further evaluation and testing. Patient and family agree with this. 911 contacted. [facility] responded. Patient extricated to ambulance. IV access established, 20g L wrist. Patient administered 324mg ASA PO. Patient has no additional complaints at this time. Patient remained AOX4 for duration of transport, able to speak and answer questions without difficulty. Patient transported to [facility] without incident or change in status. Verbal report given to RN. HALL clear. EOR. .................... .................... .................... .................... .................... .................... .................... . [facility] Consulted: Angel Rabago .................... .................... .................... .................... .................... .................... .................... . Disposition: Fulfilled Angel Rabago MD [address] [place] [address],[address] [facility], [place], [phone], [employer] 06/20/2024 15:45:21 09/06/2024 text/html HPI: RUPERTO is [...] very weak and ill-sounding to this typewriter ribbon winder. She is congested, has a wet cough, and occasional mild wheezing can be appreciated. RUPERTO is primarily [place] speaking, AOx4, speaks in full sentences, and [...] absolutely necessary. RUPERTO can be reached at [phone]. (Of note: RUPERTO had AVR on 06/14/24 and developed a cough since then; on Lasix) .................... .................... .................... .................... .................... .................... .................... . CRC Nurse Triage Notes (Nancy Hurt - RN): Chief Complaints: Breathing problems, Common cold symptoms, Cough, Fever/chills, Headache, Weakness PMH: Para or Quadriplegia, COPD/Asthma, Deep Vein Thrombosis, Diabetes Mellitus Type 2, Asthma PMH Reviewed at 09/06/2024:28 Allergies Reviewed at 09/06/2024:28 Comments: additional information received by CRU 1:36pm [...] ago, and again yesterday for this cough. RUPERTO had a CXR yesterday which revealed ? s light fluid in the lungs.? ANTONIETAR followed up with PCP today over the phone, her Lasix dose was increased from 20mg to 50mg, which ? h asn? t helped much.? MBRs daughter very concerned and requests [facility] visit. This CRU RN informs caller that MBR will be outreached for further triage of this call. Ms. Angela requests dance costume designer for call. Wind Tunnel Engineer Organization Information for Nick Casey Business Legal Name: [facility], [employer].? Address: [address] [place] [address], [place] [address], Facing Machine Operator: Dany Chand MD CLIA No.: [id number] Wind Tunnel Engineer POC Test Results from Nick Casey Rapid COVID antigen (15:35:24) COVID: - Attachments uploaded as part of this test result can be found under Documents section. Rapid influenza antigen (15:35:24) Flu: - Attachments uploaded as part of this test result can be found under Documents section. .................... .................... .................... .................... .................... .................... .................... . Wind Tunnel Engineer Note From Nick Casey: Dispatched to above [...] Flu test checked, both negative, results uploaded. [facility] contacted, spoke with Dr. Forrest, advised of patient complaints, exam findings and test results. [facility] ordered Duoneb and 1000mg Tylenol PO. Patient started on Duoneb, administered 1000mg Tylenol PO. Patient reevaluated after nebulizer TX without change. [facility] contacted, advised of no change in status after TX. [facility] ordered x2 Duoneb treatments and an ambulatory assessment after. X2 Duoneb TX administered. Ambulatory assessment preformed, patient became tachypneic in the 40s and tachycardic durring assessment. [facility] contacted, advised of assessment results. [facility] recommended patient go to ER for further evaluation and care. Patient refused further evaluation and care. As [facility] was preparing refusal form, patients daughter arrived on scene and was able to convince patient to go to ER. 911 called. [facility] responded, verbal report given to [facility] multimedia specialist, took over patient care, will transport to [facility]. ME8 clear. EOR. .................... .................... .................... .................... .................... .................... .................... . [facility] Consulted: Missy Forrest .................... .................... .................... .................... .................... .................... .................... . Disposition: Fulfilled Missy Forrest MD [address] [place] [address],[address], [place], [address], LUIS EDUARDO iMusicianCOLEMAN ALVARES 09/06/2024 18:05:54 OBGyn Episode No OBEpisode recorded.
== END ==
LOC: HO.SL 13:54
PROVIDERS: PCP Internal Medicine; Visit Provider Hospitalist
DX: G47.33 Obstructive sleep apnea (adult) (pediatric) (principal); R06.00 Dyspnea, unspecified; J98.4 Other disorders of lung; I50.9 Heart failure, unspecified
CPT/HCPCS: 95806

== ENCOUNTER → 2024-11-13 14:14 | Outpatient (BNV) | payer OTHER, SELFPAY | PROVIDERS: PCP Internal Medicine; Visit Provider Internal Medicine | DX: G47.33 Obstructive sleep apnea (adult) (pediatric) (principal) | CPT/HCPCS: 95806 ==

== ENCOUNTER 2024-12-26 10:39 | Outpatient (REF) | payer OTHER, SELFPAY ==
--- NOTE | 2024-12-26 11:17 | PFT_ITS ---
Indication: Dyspnea Spirometry [FEV1 to FVC 94%; FEV1 1.78 L; FVC 1.9 L. No significant response to bronchodilators noted.] Lung Volumes [Total lung capacity is 56% predicted; residual volume 40% predicted; expiratory reserve volume syrup% predicted.] Diffusion Capacity [DLCO 65% predicted; DLCO VA 99% predicted] Comparisons [none] Interpretation [No obstructive ventilatory defect. No significant response to bronchodilators noted. The patient does have a restrictive ventilatory defect consistent with moderate restrictive lung disease. The patient does have a decreased expiratory reserve volume secondary to elevated BMI which may be contributing to the decreased. Although interstitial lung conditions and neuromuscular conditions can not be ruled out. The patient does have a mild diffusion impairment that does correct to normal when corrected for the alveolar volume. Clinical correlation warranted.] MTDD
[2024-12-26 11:20] VITALS: PULSE 75; O2SAT 98
--- OUTSIDE RECORDS SUMMARY | 2024-12-26 11:43 | XMS_ITS | Clinical Summary ---
Author Organization [facility] it Address [address] [place] [address] Care Team Providers Care Extension Edger Name Role Phone Unavailable Primary Care Provider [...]
== END 2024-12-26 10:40 | disposition home or self-care (01) ==
LOC: HO.RESP 10:39
PROVIDERS: PCP Internal Medicine; Visit Provider Hospitalist
DX: R06.00 Dyspnea, unspecified (principal); G47.33 Obstructive sleep apnea (adult) (pediatric); J98.4 Other disorders of lung; I50.9 Heart failure, unspecified
CPT/HCPCS: 94010; 94640; 94727; 94729

== ENCOUNTER → 2024-12-26 11:17 | Outpatient (BNV) | payer OTHER, SELFPAY | PROVIDERS: PCP Internal Medicine; Visit Provider Hospitalist | DX: R06.00 Dyspnea, unspecified (principal) | CPT/HCPCS: 94060; 94727; 94729 ==

== ENCOUNTER → 2024-12-31 20:30 | Outpatient (REF) | payer OTHER, SELFPAY ==
--- OUTSIDE RECORDS SUMMARY | 2024-12-31 21:02 | XMS_ITS | Clinical Summary ---
Author Organization [facility] it Address [address] [place] [address] Care Team Providers Care Senior Policy Analyst Name Role Phone Unavailable Primary Care Provider [...]
== END ==
LOC: HO.SL 20:30
PROVIDERS: PCP Internal Medicine; Visit Provider Hospitalist
DX: G47.33 Obstructive sleep apnea (adult) (pediatric) (principal)
CPT/HCPCS: 95811

== ENCOUNTER → 2024-12-31 20:30 | Outpatient (BNV) | payer OTHER, SELFPAY | PROVIDERS: PCP Internal Medicine; Visit Provider Internal Medicine | DX: G47.33 Obstructive sleep apnea (adult) (pediatric) (principal) | CPT/HCPCS: 95811 ==

== ENCOUNTER 2025-01-21 11:10 | Outpatient (AMB) | payer OTHER, SELFPAY ==
[2025-01-21 11:14] VITALS: BP 124/58; PULSE 71; O2SAT 96; BMI 32.5
--- NOTE | 2025-01-21 11:14 | MHC.OFFVIS ---
Vital Signs 01/21/25 11:14 Height 5 ft 4 in Weight 189 lb 9.561 oz BMI 32.5 BP 124/58 L Blood Pressure Location Rt brachial Position Sitting Pulse 71 Pulse Source Pulse Oximeter Pulse Oximetry (%) 96 Oxygen Delivery Method Room Air Intake Visit Reasons: dyspnea Allergies erythromycin base Allergy (Intermediate, Verified 01/21/25 11:17) Fainting HPI Comments Details: The patient is a 79 year woman who apparently was in her usual health until back on fever after undergoing TAVR for her aortic stenosis. She started developing worsening shortness of breath and cough. She has had some chest congestion shortness of breath cough moderate severity. She has been on multiple courses of prednisone and also antibiotics. Without any significant improvement of her symptoms. More recently she did undergo a CTA which I personally reviewed demonstrating some areas of ground-glass opacities primarily at the bases of the lungs. This indeed could be a component of pneumonitis but also can be cardiogenic pulmonary edema. During that evaluation she also had blood work including a brain atretic peptide of 1800 +. Prior to this blood work her brain atretic peptide was always within normal ranges. This is a very drastic significant change for her. She was started on diuresis going up from 20 mg 40 mg of Lasix and she is feeling a lot better. 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 The patient never really had diagnosis of bronchitis or COPD or asthma prior to her surgery. In the meantime will going to assess her for obstructive airway disease is with pulmonary function studies and also blood work to assess her for pneumonitis. For now the prednisone has been bothering her is causing her some adverse effects specially with some discomfort of her feet. Will plan to start decreasing the prednisone increasing her inhaled steroids to try to minimize on the adverse effects. In addition to this the patient is having some daytime drowsiness. Her [place] score is elevated. She has significant cardiovascular risk factors. Will have her come back with PFTs and hopes sleep study and will review them and her follow-up in 6-8 weeks. If she has any issues prior to this she will call for an earlier assessment. 01/21/2025 the patient is here for a pulmonary follow-up visit. She continues to get worse overall. She is complaining of significant neuropathic pain their feet that she can not walk. She is also feeling very drowsy and weak. Most likely is related to the fact that she is taking high dose of gabapentin. I am concerned that she is at risk for falls. She is there with her family. I did recommend she can back off on the Neurontin as she gets used to it at nighttime and then she can increase it accordingly. She worked closely with her primary care doctor regarding her significant neuropathy. She does have significant daytime drowsiness. [place] score is elevated 14/24. She did have sleep study demonstrating evidence of sleep apnea and hypoxia. Ultimately underwent a titration study demonstrating sleep apnea and she did benefit from a CPAP of 9 cm. Therefore will start her on APAP as soon as possible through a local [employer] company. The patient is agreeable to this. She did well with the N20 medium mask so therefore that is 1 will going to request. She will come in 3-4 months to review her progress on her machine. In the meantime she will continue with diuresis as tolerated. And she will continue to monitor closely any medication interaction. Again the Neurontin possibly causing her to have significant fatigue and at risk for falls in currently she is on a wheelchair. [facility] Medical History (Updated 09/13/24 @ 21:50 by Marcos Ramos MD) Pulmonary nodules Cardiac asthma GOLD (obstructive sleep apnea) Dyspnea Pneumonitis CHF (congestive heart failure) Social History (Updated 01/21/25 @ 11:20 by Sharon Yip CMA) Patient Tobacco Use Status: Former Tobacco user Review of Systems Const Reports daytime sleepiness, Reports difficulty sleeping, Reports fatigue, Reports snoring and Reports weight gain Eyes Reports no additional complaints ENT Reports no additional complaints Card Denies chest pain and Reports dyspnea on exertion Resp Reports chest congestion, Reports cough, Reports dyspnea on exertion, Reports snoring and Reports wheezing GI Reports no additional complaints Musc Reports abnormal gait Skin/Breast Denies rash Neuro Reports no additional complaints, Reports abnormal gait and Reports paresthesias Endo Reports no additional complaints and Reports fatigue Tex/Lymph Denies easy bleeding and Denies easy bruising Aller/Immun Reports wheezing Physical Exam Vital Signs: Last Vital Signs Pulse 71 01/21/25 11:14 BP 124/58 L 01/21/25 11:14 Pulse Ox 96 01/21/25 11:14 Oxygen Delivery Method Room Air 01/21/25 11:14 BMI result Body Mass Index 32.5 Const General: comfortable HEENT Head: Yes normocephalic Neck Neck: Yes supple Chest Chest palpation & inspection: normal inspection of the chest Resp Effort & Inspection: normal respiratory effort Auscultation: rales, no rhonchi, no wheezes and diminished lung sounds Cardio Heart sounds: S1 normal heart sound present and S2 normal heart sound present GI Palpation (GI): Soft to palpation Skin General skin exam: no rashes or lesions noted Extrem General: No clubbing, No cyanosis and Yes edema Assessment & Plan Assessment & Plan (1) CHF (congestive heart failure): Code(s): I50.9 - Heart failure, unspecified Category: Medical Qualifiers: Heart failure chronicity: unspecified Heart failure type: unspecified Qualified Code(s): I50.9 - Heart failure, unspecified (2) Pneumonitis: Code(s): J98.4 - Other disorders of lung Category: Medical (3) Dyspnea: Code(s): R06.00 - Dyspnea, unspecified Category: Medical Qualifiers: Dyspnea type: dyspnea on exertion Qualified Code(s): R06.09 - Other forms of dyspnea (4) GOLD (obstructive sleep apnea): Code(s): G47.33 - Obstructive sleep apnea (adult) (pediatric) Category: Medical (5) Cardiac asthma: Code(s): I50.1 - Left ventricular failure, unspecified Category: Medical (6) Pulmonary nodules: Code(s): R91.8 - Other nonspecific abnormal finding of lung field Category: Medical Plan start APAP diuresis as tolerated daily weights continue Trelegy start Doxycycline F/U 3 months Medications: New doxycycline monohydrate 100 mg PO BID 28 tabs 0RF 14 days Coding Level of Care Code Est Pt Level 4 (98253) Complex EM visit Add On G2211 Diagnoses Congestive heart failure, unspecified HF chronicity, unspecified heart failure type I50.9 Heart failure chronicity: unspecified Heart failure type: unspecified Pneumonitis J98.4 Dyspnea on exertion R06.09 Dyspnea type: dyspnea on exertion GOLD (obstructive sleep apnea) G47.33 Cardiac asthma I50.1 Pulmonary nodules R91.8 Time Spent (min) 18
== END 2025-01-21 11:41 | disposition home or self-care (01) ==
LOC: HO.HPS 11:11
PROVIDERS: PCP Internal Medicine; Visit Provider Hospitalist
DX: I50.9 Heart failure, unspecified (principal); J98.4 Other disorders of lung; R06.09 Other forms of dyspnea; G47.33 Obstructive sleep apnea (adult) (pediatric); I50.1 Left ventricular failure, unspecified; R91.8 Other nonspecific abnormal finding of lung field
CPT/HCPCS: 99214; G2211

== ENCOUNTER → 2025-01-21 11:10 | Outpatient (BNVA) | payer OTHER, SELFPAY | PROVIDERS: PCP Internal Medicine; Visit Provider Hospitalist | DX: R06.09 Other forms of dyspnea (principal); J98.4 Other disorders of lung; G47.33 Obstructive sleep apnea (adult) (pediatric); I11.0 Hypertensive heart disease with heart failure; I50.1 Left ventricular failure, unspecified; R91.8 Other nonspecific abnormal finding of lung field | CPT/HCPCS: 99212 ==

== ENCOUNTER 2025-02-25 09:12 | Outpatient (REF) | payer OTHER, SELFPAY ==
[2025-02-25 10:18] LABS: MANUAL DIFF FLAG NO
[2025-02-25 10:46] LABS: Hematocrit 34.1 % (37.0-47.0); Hemoglobin 10.9 g/dl (12.0-16.0); Imm Gran Abs Auto 0.15 X10*3/uL (0.00-0.03); Imm Gran Pct Auto 1.4 % (0.0-0.4); Lymphocytes Absolute Auto 1.8 X10*3/uL (1.2-4.9); Mean Corpuscular HGB Conc 32.0 g/dl (31.0-35.0); Mean Corpuscular Hemoglobin 28.2 pg (27.0-33.0); Mean Corpuscular Volume 88.1 fL (80.0-98.0); NRBC Abs Auto 0.000 X10*3/uL (0.0-0.012); NRBC Pct Auto 0.0 /100WBC (0.0-0.2); Platelet Count 261 X10*3/uL (160-400); Red Blood Count 3.87 X10*6/uL (4.20-5.50); White Blood Count 10.7 X10*3/uL (4.8-10.8)
--- OUTSIDE RECORDS SUMMARY | 2025-02-25 10:59 | XMS_ITS | Patient Health Record ---
Author Organization [facility] Address [address] [place] [address] Care Team Providers Care Mounter Flutes And Piccolos Name Role Phone Gokul Cleveland MD Primary Care Provider Ty Saravia Unavailable [phone] Allergies Allergen (clinical drug ingredient) Drug/Non Drug [...] minutes before morning meal Orally Once a day; Duration: 30 day(s) Active metFORMIN HCl 500 MG 1 tablet with a mo l Orally Once a day; Duration: 30 day(s) Active Extra Depth Orthopedic Shoes (1 Pair) with Customized Heat Molded Multidensity Innersoles (3 Pair) as directed Dx: NIDDM/Polyneuropathy (E11.42), Hammertoe Foot Deformity (M20.41,M20.42), Preulcerative Skin Lesion(s) (L85.1 12/24/2020 Active Laxative Active Vitamin D 25 MCG (1000 UT) 1 tablet Oral ly Once a day; Duration: 30 day(s) Active Hydrocortisone Activ e Vitamin B 12 Active Breo Ellipta 100-25 MCG/INH 1 puff Inhal ation Once a day Active Senna 8.6 MG 2 tablets at bedtime as needed Orally Once a day; Duration: 30 day(s) Active Baclofen Active Rosuvastatin Calcium 20 MG 1 capsule Ora lly Once a day; Duration: 30 day(s) Active rOPINIRole HCl Activ e PROzac 20 MG 1 capsule Orally Onc e a day; Duration: 30 day(s) Active Procto-Med HC 2.5 % 1 application Special Education Director ally Twice a day Active Aspirin 81 MG 1 tablet Orally Once a day; Duration: 30 day(s) Active Ambien 10 MG 1 [...] Problem Acquired hammer toe of right foot ([id number] ) Other hammer toe(s) (acquired), right foot (M20.41) Active confirmed Problem Acquired hammer toe of left foot ([id number] ) Other hammer toe(s) (acquired), left foot (M20.42) Active confirmed Problem Polyneuropathy due to type 2 diabetes mellitus (841462725) Type 2 diabetes mellitus with diabetic polyneuropathy (E11.42) Active confirmed Plan Of Treatment Pending Test Test Name Order Date [id number] NAIL, 6 OR MORE 12/24/2020 [id number] NAIL, 6 OR MORE 04/09/2021 [id number] SKIN LESIONS, OVER 4 04/09/20 21 [id number] SKIN LESIONS, OVER 4 12/25/19 21 Insurance Providers Payer Name Payer Address Payer Phone Subscriber Number Group Number Insured Name Patient Relationship to Insured Coverage Start Date Coverage End Date [facility] [employer] Claims [address] [place] [phone] [id number] Kaitlynn Javier Self - patient is the insured Medical (General) History Medical History History ICD Code Anxiety asthma Back,Hip,and Knee pain CAD (Cholesterol) Cataracts Depression Diabetic Fibromyalgia High blood pressure Poor circulation Sciatica Transfusions Reflux Surgical History Surgery Date(Month/Year) about 10 surgeries Hospitalization History Reason Date(Month/Year) [facility], Heart issues 07/2020
[2025-02-25 11:43] LABS: Anion Gap 14 (12-20); Blood Urea Nitrogen 22 mg/dL (9-16); Calcium 10.2 mg/dL (8.4-10.2); Carbon Dioxide 25 mmol/L (22-29); Chloride 108 mmol/L (96-108); Estimated Glomerular Filt Rate > 60; Potassium 3.2 mmol/L (3.3-5.1); Sodium 144 mmol/L (135-145)
[2025-02-28 15:43] LABS: Class Alternaria alternata 0; Class Aspergillus fumigatus 0; Class Bermuda Grass 0; Class Birch 0; Class Cat Dander 0; Class Cladosporium herbarum 0; Class Cockroach 0; Class Common Ragweed 0; Class Cottonwood 0; Class Derm. pterony 0; Class Dermatophagoides farinae 0; Class Dog Dander 0; Class Elm 0; Class Maple Box Elder 0; Class Mountain Cedar 0; Class Mouse Urine Protein 0; Class Mugwort 0; Class Oak 0; Class Penicillium crysogenum 0; Class Rough Pigweed 0; Class Sheep Sorrel 0; Class Sycamore 0; Class Timothy Grass 0; Class Walnut Tree 0; Class White Ash 0; Class White Mulberry 0; D002 - IgE D farinae <0.10 kU/L; E001 - IgE Cat Dander <0.10 kU/L; E005 - IgE Dog Dander <0.10 kU/L; G006 - IgE Timothy Grass <0.10 kU/L; I006-IgE Cockroach, German <0.10 kU/L; M002 - IgE Cladosporium herbar <0.10 kU/L; M003 - IgE Aspergillus fumigat <0.10 kU/L; M006 - IgE Alternaria alternat <0.10 kU/L; T001 IgE Maple/Box Elder <0.10 kU/L; T006 - IgE Cedar, Mountain <0.10 kU/L; T007 - IgE Oak, White <0.10 kU/L; T008 IgE Elm, American <0.10 kU/L; T010 - IgE Walnut <0.10 kU/L; T011 - IgE Maple Leaf Sycamore <0.10 kU/L; T014 - IgE Cottonwood <0.10 kU/L; T015 - IgE Ash, White <0.10 kU/L; T070 - IgE White Mulberry <0.10 kU/L; W001 - IgE Ragweed, Short <0.10 kU/L; W006 - IgE Mugwort <0.10 kU/L; W014 IgE Pigweed, Common <0.10 kU/L; W018 IgE Sheep Sorrel <0.10 kU/L
[2025-03-02 13:48] LABS: Asperg fumigatus Precip Abs NEGATIVE (NEGATIVE); Micropoly faeni Abs NEGATIVE (NEGATIVE); Saccharo pora viridis Abs NEGATIVE (NEGATIVE); Thermo candidus Abs NEGATIVE (NEGATIVE)
--- OUTSIDE RECORDS SUMMARY | 2025-04-06 20:00 | XMS_ITS | Clinical Summary ---
Author Organization Unknown Care Team Providers Care Supervisor Ste[facility] Name Role Phone ISHMAEL BAIN, DULCE Unavailable Unavailable SAMMY CATHERINE, LATISHA Unavailable Unavailable Payers Payer Name Policy Type Policy Number Effective Date Expira tion Date [facility] [id number] MEDICAID [facility] [id number] MEDICARE - [facility]/[place] - PD [id number] Problems Condition Name Condition Details Condition Category Status Onset Date Resolution Date Last Treatment Date Treating Clinician Comments DEPRESSION, UNSPECIFIED Active 01-19 00:00: 00 TYPE 2 DIABETES MELLITUS WITH DIABETIC NEUROPATHY, UNSP Active 02-12 00:00: 00 Allergies, Adverse Reactions, Alerts Allergy Name Allergy Type Status Severity Reaction(s) Onset Date Inactive Date Treating Clinician Comments ERYTHROMYCIN Propensity to adverse reactions Active 02-07 13:39: 36 Medications Ordered Medication Name Filled Medication Name Start Date Stop Date Current Medication? Ordering Clinician Indication Dosage Frequency Signature (SIG) Comments Components acetaminoph en ER 650 mg tablet,exte nded release 02-07 00:00: 00 Yes [id number] 650 mg EVERY 6-8 HOURS NEEDED 650 mg EVERY 6-8 HOURS NEEDED (route: oral) Med Classific ation: Analgesic , Anti-infl ammatory or Antipyret ic albuterol sulfate HFA 90 mcg/actuati on aerosol inhaler 02-07 00:00: 00 Yes [id number] 2 puff NEEDED 2 puff NEEDED (route: inhalation ) Med Classific ation: Respirato ry Therapy Agents Breo Ellipta 200 mcg-25 mcg/dose powder for inhalation 02-07 00:00: 00 Yes [id number] 200 mcg DAILY 200 mcg DAILY (route: inhalation ) Med Classific ation: Respirato ry Therapy Agents C-1000 1,000 mg tablet 02-07 00:00: 00 Yes [id number] 1000 mg DAILY 1000 mg DAILY (route: oral) Med Classific ation: Electroly te Balance-N utritiona l Products Calmoseptin e 0.44 %-20.6 % topical ointment 02-07 00:00: 00 Yes [id number] Per instruc tions DIRECTED Per instructio ns DIRECTED (route: topical) Med Classific ation: Dermatolo gical Combivent Respimat 20 mcg-100 mcg/actuati on solution for inhalation 02-07 00:00: 00 Yes [id number] 1 puff NEEDED 1 puff NEEDED (route: inhalation ) Med Classific ation: Respirato ry Therapy Agents Eliquis 2.5 mg tablet 02-07 00:00: 00 Yes [id number] 2.5 mg 2 TIMES DAILY 2.5 mg 2 TIMES DAILY (route: oral) Med Classific ation: Hematolog ical Agents estradiol 0.01% (0.1 mg/gram) vaginal cream 02-07 00:00: 00 Yes [id number] 1 inch EVERY OTHER DAY 1 inch EVERY OTHER DAY (route: vaginal) Med Classific ation: Vaginal Products furosemide 20 mg tablet 02-07 00:00: 00 Yes [id number] 20 mg DAILY 20 mg DAILY (route: oral) Med Classific ation: Cardiovas cular Therapy Agents gabapentin 600 mg tablet 02-07 00:00: 00 Yes [id number] 600 mg 2 TIMES DAILY 600 mg 2 TIMES DAILY (route: oral) Med Classific ation: Central Nervous System Agents ipratropium 0.5 mg-albutero l 2.5 mg/2.5 mL solution for nebulizatio n 02-07 00:00: 00 Yes [id number] Per instruc tions EVERY 6-8 HOURS NEEDED Per instructio ns EVERY 6-8 HOURS NEEDED (route: inhalation ) Med Classific ation: Respirato ry Therapy Agents lactulose 10 gram/15 mL (15 mL) oral solution 02-07 00:00: 00 Yes [id number] 10 g DAILY 10 g MARY Y (route: oral) Med Classific ation: Gastroint estinal Therapy Agents Lidocan III 5 % topical patch 02-07 00:00: 00 Yes [id number] 2 adhesiv e patch, medicat ed NEEDED 2 adhesive patch, medicated NEEDED (route: topical) Med Classific ation: Dermatolo gical Linzess 290 mcg capsule 02-07 00:00: 00 Yes [id number] 290 mcg DAILY 290 mcg DAILY (route: oral) Med Classific ation: Gastroint estinal Therapy Agents meloxicam 7.5 mg tablet 02-07 00:00: 00 Yes [id number] 7.5 mg DAILY 7.5 mg DAILY (route: oral) Med Classific ation: Analgesic , Anti-infl ammatory or Antipyret ic metformin 500 mg tablet 02-07 00:00: 00 Yes [id number] 500 mg 2 TIMES DAILY 500 mg 2 TIMES DAILY (route: oral) Med Classific ation: Endocrine methenamine hippurate 1 gram tablet 02-07 00:00: 00 Yes [id number] 1 g 2 TIMES DAILY 1 g 2 TIMES DAILY (route: oral) Med Classific ation: Genitouri nary Therapy Vitamin D3 25 mcg (1,000 unit) capsule 02-07 00:00: 00 Yes [id number] 25 mcg DAILY 25 mcg DAILY (route: oral) Med Classific ation: Electroly te Balance-N utritiona l Products Immunizations Ordered Immunization Name Filled Immunization Name Date Status Comments Refusal Reason COVID-19, COVID-19 2020-01-30 00:00:00 Vital Signs Vital Name Observation Time Observation Value Commen ts Temperature 2025-02-14 14:45:00.000 97.3 [degF] Temperature 2025-02-13 10:35:00.000 97.6 [degF] Temperature 2025-02-07 13:37:00.000 97.2 [degF] BMI (%) 2025-02-07 13:37:00.000 30 kg/m2 Height 2025-02-07 13:37:00.000 64 [in_us] Pulse 2025-02-14 14:45:00.000 68 /min Pulse 2025-02-13 10:35:00.000 72 /min Pulse 2025-02-07 13:37:00.000 91 /min Respirations 2025-02-14 14:45:00.000 16 /min Respirations 2025-02-13 10:35:00.000 16 /min Respirations 2025-02-07 13:37:00.000 16 /min Weight (lbs) 2025-02-07 13:37:00.000 180 [lb_av] Systolic Blood Pressure 2025-02-14 14:45:00.000 123 mm [Hg] Systolic Blood Pressure 2025-02-13 10:35:00.000 128 mm [Hg] Systolic Blood Pressure 2025-02-07 13:37:00.000 126 mm [Hg] Diastolic Blood Pressure 2025-02-14 14:45:00.000 70 mm [Hg] Diastolic Blood Pressure 2025-02-13 10:35:00.000 70 mm [Hg] Diastolic Blood Pressure 2025-02-07 13:37:00.000 73 mm [Hg] Plan of Treatment Planned Activity Planned Date Details Comments Future Scheduled Test SKILLED NU RSE TO EVALUATE PATIENT, IDENTIFY PRIMARY AND CO-MORBID CONDITIONS CODED PER CODING GUIDELINES, AND DEVELOP PATIENT SPECIFIC PLAN OF CARE THAT INCLUDES PATIENT GOAL FOR HOME HEALTH. [code = SKILLED NURSE TO EVALUATE PATIENT, IDENTIFY PRIMARY AND CO-MORBID CONDITIONS CODED PER CODING GUIDELINES, AND DEVELOP PATIENT SPECIFIC PLAN OF CARE THAT INCLUDES PATIENT GOAL FOR HOME HEALTH.] Future Scheduled Test SKILLED NU RSE TO PRE-POUR MEDICATION PER MEDICATION LIST TWICE WEEKLY. [code = SKILLED NURSE TO PRE-POUR MEDICATION PER MEDICATION LIST TWICE WEEKLY.] Future Scheduled Test PATIENT MA Y HAVE ONE SET OF EMERGENCY MEDICATION NOT TO BE PRE-POURED ANY SOONER THAN 24 HOURS BEFORE SEVERE INCLEMENT WEATHER OR EMERGENT EVENT AND FOLLOWING SKILLED NURSE EVALUATION OF PATIENT SAFETY. [code = PATIENT MAY HAVE ONE SET OF EMERGENCY MEDICATION NOT TO BE PRE-POURED ANY SOONER THAN 24 HOURS BEFORE SEVERE INCLEMENT WEATHER OR EMERGENT EVENT AND FOLLOWING SKILLED NURSE EVALUATION OF PATIENT SAFETY.] Future Scheduled Test SKILLED NU RSE TO O/A OF PATIENTS MENTAL/BEHAVIORAL STATUS, ASSESS VITAL SIGNS EACH VISIT. ALLOW 2 PRNS FOR MEDICATION MANAGEMENT. [code = SKILLED NURSE TO O/A OF PATIENTS MENTAL/BEHAVIORAL STATUS, ASSESS VITAL SIGNS EACH VISIT. ALLOW 2 PRNS FOR MEDICATION MANAGEMENT.] Future Scheduled Test SKILLED NU RSE FOR O/A OF GENERAL HEALTH STATUS OF PAIN, CARDIAC, RESPIRATORY, GASTROINTESTINAL, GENITOURINARY, SKIN, NEUROLOGIC, ENDOCRINE SYSTEMS TO IDENTIFY CHANGES ASSOCIATED WITH EXACERBATION FOR EARLY INTERVENTION OF COMPLICATIONS WEEKLY. [code = SKILLED NURSE FOR O/A OF GENERAL HEALTH STATUS OF PAIN, CARDIAC, RESPIRATORY, GASTROINTESTINAL, GENITOURINARY, SKIN, NEUROLOGIC, ENDOCRINE SYSTEMS TO IDENTIFY CHANGES ASSOCIATED WITH EXACERBATION FOR EARLY INTERVENTION OF COMPLICATIONS WEEKLY.] Future Scheduled Test SKILLED NU RSE FOR O/A AND SKILLED TEACHING OF COPING SKILLS TO MANAGE ANXIETY AND MAINTAIN SAFETY. [code = SKILLED NURSE FOR O/A AND SKILLED TEACHING OF COPING SKILLS TO MANAGE ANXIETY AND MAINTAIN SAFETY.] Future Scheduled Test SKILLED NU RSE FOR O/A AND SKILLED TEACHING RELATED TO MANAGEMENT OF DEPRESSIVE SYMPTOMS AND/OR DEPRESSION. SN TO REPORT SIGNIFICANT CHANGE IN DEPRESSIVE SYMPTOMS TO CLINICAL PROVIDER FOR EARLY INTERVENTION. [code = SKILLED NURSE FOR O/A AND SKILLED TEACHING RELATED TO MANAGEMENT OF DEPRESSIVE SYMPTOMS AND/OR DEPRESSION. SN TO REPORT SIGNIFICANT CHANGE IN DEPRESSIVE SYMPTOMS TO CLINICAL PROVIDER FOR EARLY INTERVENTION.] Future Scheduled Test SKILLED NU RSE FOR O/A AND TEACHING OF DIABETIC MANAGEMENT INCLUDING BLOOD SUGAR MONITORING/USE OF GLUCOMETER, DIABETIC DIET, LOWER EXTREMITY SKIN INSPECTION, PROPER SKIN/FOOT CARE, AND SIGNS AND SYMPTOMS HYPO/HYPERGLYCEMIA TO REPORT. [code = SKILLED NURSE FOR O/A AND TEACHING OF DIABETIC MANAGEMENT INCLUDING BLOOD SUGAR MONITORING/USE OF GLUCOMETER, DIABETIC DIET, LOWER EXTREMITY SKIN INSPECTION, PROPER SKIN/FOOT CARE, AND SIGNS AND SYMPTOMS HYPO/HYPERGLYCEMIA TO REPORT.] Future Scheduled Test SKILLED NU RSE TO PERFORM AND RECORD BLOOD SUGAR READING EACH VISIT, AND PRN FOR SIGNS AND SYMPTOMS OF HYPO/HYPERGLYCEMIA. [code = SKILLED NURSE TO PERFORM AND RECORD BLOOD SUGAR READING EACH VISIT, AND PRN FOR SIGNS AND SYMPTOMS OF HYPO/HYPERGLYCEMIA.] Future Scheduled Test SKILLED NU RSE TO PERFORM HOME SAFETY AND FALL ASSESSMENT AND PROVIDE INSTRUCTION TO IMPLEMENT HOME SAFETY AND FALL PREVENTION STRATEGIES. [code = SKILLED NURSE TO PERFORM HOME SAFETY AND FALL ASSESSMENT AND PROVIDE INSTRUCTION TO IMPLEMENT HOME SAFETY AND FALL PREVENTION STRATEGIES.] Future Scheduled Test SKILLED NU RSE FOR OBSERVATION AND ASSESSMENT OF PATIENTS PAIN LEVEL AND EFFECTIVENESS OF PAIN MANAGEMENT REGIMEN. SKILLED NURSE TO INSTRUCT PATIENT/CAREGIVER REGARDING PHARMACOLOGIC AND NON-PHARMACOLOGIC PAIN CONTROL MEASURES. SKILLED NURSE TO REPORT TO PHYSICIAN IF PAIN IS UNCONTROLLED WITH CURRENT PAIN MANAGEMENT REGIMEN. [code = SKILLED NURSE FOR OBSERVATION AND ASSESSMENT OF PATIENTS PAIN LEVEL AND EFFECTIVENESS OF PAIN MANAGEMENT REGIMEN. SKILLED NURSE TO INSTRUCT PATIENT/CAREGIVER REGARDING PHARMACOLOGIC AND NON-PHARMACOLOGIC PAIN CONTROL MEASURES. SKILLED NURSE TO REPORT TO PHYSICIAN IF PAIN IS UNCONTROLLED WITH CURRENT PAIN MANAGEMENT REGIMEN.] Future Scheduled Test PHYSICAL T HERAPIST TO EVALUATE PATIENT FOR BLLE NEUROPATHY, UNSTEADY GAIT, BALANCE AND SAFETY AT HOME. [code = PHYSICAL THERAPIST TO EVALUATE PATIENT FOR BLLE NEUROPATHY, UNSTEADY GAIT, BALANCE AND SAFETY AT HOME.] Future Scheduled Test PATIENT PERSON S A RISK OF HOSPITALIZATION AND ED USE. SKILLED NURSE TO ESTABLISH SUPPORT MEASURES TO MINIMIZE RISK OF HOSPITALIZATION AND ED USE, AND INSTRUCT PATIENT/CAREGIVER ON METHODS TO REDUCE AVOIDABLE HOSPITALIZATION AND ED USE. [code = PATIENT HAS A RISK OF HOSPITALIZATION AND ED USE. SKILLED NURSE TO ESTABLISH SUPPORT MEASURES TO MINIMIZE RISK OF HOSPITALIZATION AND ED USE, AND INSTRUCT PATIENT/CAREGIVER ON METHODS TO REDUCE AVOIDABLE HOSPITALIZATION AND ED USE.] Future Scheduled Test SKILLED NU RSE TO REVIEW PATIENT MEDICATIONS. INSTRUCT PATIENT/CAREGIVER ON MONITORING OF EFFECTIVENESS, ADVERSE DRUG REACTIONS, SIDE EFFECTS OF ALL MEDICATIONS (PRESCRIPTION/-OTC), AND HOW AND WHEN TO REPORT PROBLEMS. [code = SKILLED NURSE TO REVIEW PATIENT MEDICATIONS. INSTRUCT PATIENT/CAREGIVER ON MONITORING OF EFFECTIVENESS, ADVERSE DRUG REACTIONS, SIDE EFFECTS OF ALL MEDICATIONS (PRESCRIPTION/-OTC), AND HOW AND WHEN TO REPORT PROBLEMS.] Future Scheduled Test SKILLED NU RSE FOR O/A OF CLIENT'S CURRENT DEGREE OF HOPELESSNESS AND PROVIDE THERAPEUTIC INTERVENTIONS AND TEACHING DESIGNED TO ENHANCE THE CLIENT'S WELL BEING. [code = SKILLED NURSE FOR O/A OF CLIENT'S CURRENT DEGREE OF HOPELESSNESS AND PROVIDE THERAPEUTIC INTERVENTIONS AND TEACHING DESIGNED TO ENHANCE THE CLIENT'S WELL BEING.] Future Scheduled Test SKILLED NU RSE TO ASSESS PATIENTS PSYCHOSOCIAL STATUS TO IDENTIFY POTENTIAL ISSUES THAT MAY COMPLICATE THE PROVISION OF THE PLAN OF CARE INCLUDING THE PATIENTS ABILITY TO ACCESS COMMUNITY RESOURCES AND PSYCHOSOCIAL SUPPORT SERVICES. [code = SKILLED NURSE TO ASSESS PATIENTS PSYCHOSOCIAL STATUS TO IDENTIFY POTENTIAL ISSUES THAT MAY COMPLICATE THE PROVISION OF THE PLAN OF CARE INCLUDING THE PATIENTS ABILITY TO ACCESS COMMUNITY RESOURCES AND PSYCHOSOCIAL SUPPORT SERVICES.] Future Scheduled Test SKILLED NU RSE WILL MAINTAIN SITUATIONAL AWARENESS FOR SAFETY AND WILL NOTIFY CLINICAL COTTON SEED CULLER AND PHYSICIAN/PROVIDER WITH ANY CHANGE IN CONDITION. [code = SKILLED NURSE WILL MAINTAIN SITUATIONAL AWARENESS FOR SAFETY AND WILL NOTIFY CLINICAL COTTON SEED CULLER AND PHYSICIAN/PROVIDER WITH ANY CHANGE IN CONDITION.] Goal Patient Goal - TO BE ABLE TO WALK BETTER Goal Provider Goal - A PLAN OF CARE WILL BE ESTABLISHED THAT MEETS PATIENT'S CARE HOME NEEDS AND INCLUDES PATIENT GOAL FOR HOME HEALTH. Goal Provider Goal - PATIENT WILL COMPLY WITH MEDICATION WHEN SKILLED NURSE PRE-POURS MEDICATION THROUGHOUT CERTIFICATION PERIOD. Goal Provider Goal - MEDICATION WILL BE AVAILABLE DURING INCLEMENT WEATHER OR EMERGENT EVENT THROUGHOUT CERTIFICATION PERIOD. Goal Provider Goal - ALTERED MENTAL/BEHAVIORAL STATUS WILL BE IDENTIFIED PROMPTLY AND INTERVENTION INITIATED QUICKLY TO MINIMIZE ASSOCIATED RISKS THROUGHOUT CERTIFICATION PERIOD. Goal Provider Goal - CHANGE IN GENERAL HEALTH STATUS WILL BE IDENTIFIED AND REPORTED TO PHYSICIAN FOR PROMPT INTERVENTION TO MINIMIZE ASSOCIATED RISKS THROUGHOUT CERTIFICATION PERIOD. Goal Provider Goal - PATIENT WILL BE ABLE TO PERFORM DAILY FUNCTIONS AND HAVE OPTIMAL IMPROVEMENT IN LEVEL OF ANXIETY THROUGHOUT CERTIFICATION PERIOD. Goal Provider Goal - PATIENT WILL REMAIN SAFE WITHOUT DECOMPENSATION IN DEPRESSIVE CONDITION, WHILE MAINTAINING OPTIMAL LEVEL OF MENTAL HEALTH AND WELL BEING THROUGHOUT CERTIFICATION PERIOD. Goal Provider Goal - PATIENT/CAREGIVER WILL VERBALIZE/DEMONSTRATE KNOWLEDGE OF DIABETIC MANAGEMENT. CHANGES IN DIABETIC STATUS WILL BE IDENTIFIED AND REPORTED TO PHYSICIAN FOR PROMPT INTERVENTION THROUGHOUT THE CERTIFICATION PERIOD. Goal Provider Goal - BLOOD SUGAR READING WILL BE OBTAINED ORDERED THROUGHOUT CERTIFICATION PERIOD. Goal Provider Goal - PATIENT/CAREGIVER WILL VERBALIZE/DEMONSTRATE EFFECTIVE HOME SAFETY AND FALL PREVENTION STRATEGIES THROUGHOUT CERTIFICATION PERIOD. Goal Provider Goal - PATIENT/CAREGIVER WILL DEMONSTRATE UNDERSTANDING OF PHARMACOLOGIC AND NONPHARMACOLOGIC PAIN CONTROL MEASURES AND PATIENT WILL HAVE IMPROVEMENT IN PAIN INTERFERING WITH ACTIVITY EVIDENCED BY PAIN AT A LEVEL THAT IS ACCEPTABLE TO THE PATIENT AND PAIN LEVEL WITHIN ESTABLISHED PARAMETERS BY END OF CERTIFICATION PERIOD. Goal Provider Goal - A PHYSICAL THERAPY EVALUATION TO BE COMPLETED WITH RECOMMENDATIONS AND/OR WRITTEN PLAN OF TREATMENT ESTABLISHED FOR PHYSICIANS SIGNATURE. Goal Provider Goal - PATIENT WILL HAVE SUPPORT MEASURES ESTABLISHED TO PREVENT HOSPITALIZATION AND ED USE AND PATIENT/CAREGIVER WILL VERBALIZE/DEMONSTRATE METHODS TO REDUCE AVOIDABLE HOSPITALIZATION AND ED USE BY END OF EPISODE. Goal Provider Goal - PATIENT/CAREGIVER WILL VERBALIZE UNDERSTANDING OF EDUCATION PROVIDED ON MEDICATIONS BY THE END OF THE CERTIFICATION PERIOD. Goal Provider Goal - PATIENT WILL VERBALIZE OWN ASSOCIATION OF FEELINGS OF HOPELESSNESS, AND 3 THERAPEUTIC TECHNIQUES TO DECREASE THESE FEELINGS BY THE END OF THIS CERTIFICATION. Goal Provider Goal - PSYCHOSOCIAL NEEDS WILL BE IDENTIFIED AND PLAN IMPLEMENTED TO MINIMIZE RISK THROUGHOUT CERTIFICATION PERIOD. Goal Provider Goal - PATIENT WILL REMAIN SAFE IN THE COMMUNITY AND WILL BE FREE OF DANGER TO SELF AND OTHERS THROUGHOUT THE CERTIFICATION PERIOD. Encounters Start Date/Time End Date/Time Encounter Type Admission Type Attending [facility] Care Facility Care Department Encounter ID Discharge Date Discharge Status Discharge Condition Discharge Reason Percent Goals Met 2025-02-07 00:00:00 2025-04-07 00:00:00 Outpatient NEW ADMISSION [facility] [id number]
== END 2025-02-25 09:13 | disposition home or self-care (01) ==
LOC: HO.LAB 09:12
PROVIDERS: PCP Internal Medicine; Visit Provider Hospitalist
DX: T78.40XA Allergy, unspecified, initial encounter (principal); J98.4 Other disorders of lung; J45.909 Unspecified asthma, uncomplicated; R91.1 Solitary pulmonary nodule; R91.8 Other nonspecific abnormal finding of lung field
CPT/HCPCS: 36415; 80048; 82785; 85025; 85652; 86003; 86331; 86606; 86609; 99212

== ENCOUNTER 2025-02-25 09:12 | Outpatient (AMB) | payer OTHER, SELFPAY ==
[2025-02-25 09:27] VITALS: BP 140/62; PULSE 86; O2SAT 97; BMI 32.7
--- NOTE | 2025-02-25 09:27 | MHC.OFFVIS ---
Vital Signs 02/25/25 09:27 Height 5 ft 4 in Weight 190 lb 11.198 oz BMI 32.7 BP 140/62 H Blood Pressure Location Lt brachial Position Sitting Pulse 86 Pulse Source Pulse Oximeter Pulse Oximetry (%) 97 Oxygen Delivery Method Room Air Intake Visit Reasons: Shortness of breath/Prod cough / per Dr Ramos Allergies erythromycin base Allergy (Intermediate, Verified 02/25/25 09:31) Fainting HPI Comments Details: The patient is a 79 year woman who apparently was in her usual health until back on fever after undergoing TAVR for her aortic stenosis. She started developing worsening shortness of breath and cough. She has had some chest congestion shortness of breath cough moderate severity. She has been on multiple courses of prednisone and also antibiotics. Without any significant improvement of her symptoms. More recently she did undergo a CTA which I personally reviewed demonstrating some areas of ground-glass opacities primarily at the bases of the lungs. This indeed could be a component of pneumonitis but also can be cardiogenic pulmonary edema. During that evaluation she also had blood work including a brain atretic peptide of 1800 +. Prior to this blood work her brain atretic peptide was always within normal ranges. This is a very drastic significant change for her. She was started on diuresis going up from 20 mg 40 mg of Lasix and she is feeling a lot better. 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 The patient never really had diagnosis of bronchitis or COPD or asthma prior to her surgery. In the meantime will going to assess her for obstructive airway disease is with pulmonary function studies and also blood work to assess her for pneumonitis. For now the prednisone has been bothering her is causing her some adverse effects specially with some discomfort of her feet. Will plan to start decreasing the prednisone increasing her inhaled steroids to try to minimize on the adverse effects. In addition to this the patient is having some daytime drowsiness. Her [place] score is elevated. She has significant cardiovascular risk factors. Will have her come back with PFTs and hopes sleep study and will review them and her follow-up in 6-8 weeks. If she has any issues prior to this she will call for an earlier assessment. 01/21/2025 the patient is here for a pulmonary follow-up visit. She continues to get worse overall. She is complaining of significant neuropathic pain their feet that she can not walk. She is also feeling very drowsy and weak. Most likely is related to the fact that she is taking high dose of gabapentin. I am concerned that she is at risk for falls. She is there with her family. I did recommend she can back off on the Neurontin as she gets used to it at nighttime and then she can increase it accordingly. She worked closely with her primary care doctor regarding her significant neuropathy. She does have significant daytime drowsiness. [place] score is elevated 14/24. She did have sleep study demonstrating evidence of sleep apnea and hypoxia. Ultimately underwent a titration study demonstrating sleep apnea and she did benefit from a CPAP of 9 cm. Therefore will start her on APAP as soon as possible through a local [employer] company. The patient is agreeable to this. She did well with the N20 medium mask so therefore that is 1 will going to request. She will come in 3-4 months to review her progress on her machine. In the meantime she will continue with diuresis as tolerated. And she will continue to monitor closely any medication interaction. Again the Neurontin possibly causing her to have significant fatigue and at risk for falls in currently she is on a wheelchair. 02/25/2025 the patient is here for a sick visit. She is still having hard time with the breathing. She has been to the hospital multiple times. She has been having more wheezing and coughing. The coughing is very significant does not allow her to tolerate the CPAP. She did go to the hospital. Primarily at [facility] so I do not have any records. She is already on Trelegy and also using her nebulizer treatment. Currently on prednisone. Will go ahead and give her additional prednisone for slow taper. She also complains that her cough has gotten more productive in nature. Yellowish phlegm. Will go ahead and start her on some Augmentin. She will monitor closely for any allergic reactions. The last time she did get some doxycycline. The patient also will use cough medication to help her settle down the cough and hopefully she can use her CPAP although she is reluctant to use it at this time. The patient will go ahead and undergo blood work to see if she is a candidate for any biologic therapies in view of her ongoing respiratory symptoms. [facility] Medical History (Updated 02/25/25 @ 22:20 by Marcos Ramos MD) Asthma Allergies Pulmonary nodules Cardiac asthma GOLD (obstructive sleep apnea) Dyspnea Pneumonitis CHF (congestive heart failure) Social History (Updated 01/21/25 @ 11:20 by Sharon Yip CMA) Patient Tobacco Use Status: Former Tobacco user Review of Systems Const Reports daytime sleepiness, Reports difficulty sleeping, Reports fatigue, Reports snoring and Reports weight gain Eyes Reports no additional complaints ENT Reports no additional complaints Card Denies chest pain and Reports dyspnea on exertion Resp Reports chest congestion, Reports cough, Reports dyspnea on exertion, Reports snoring and Reports wheezing GI Reports no additional complaints Musc Reports abnormal gait Skin/Breast Denies rash Neuro Reports no additional complaints, Reports abnormal gait and Reports paresthesias Endo Reports no additional complaints and Reports fatigue Tex/Lymph Denies easy bleeding and Denies easy bruising Aller/Immun Reports wheezing Physical Exam Vital Signs: Last Vital Signs Pulse 86 02/25/25 09:27 BP 140/62 H 02/25/25 09:27 Pulse Ox 97 02/25/25 09:27 Oxygen Delivery Method Room Air 02/25/25 09:27 BMI result Body Mass Index 32.7 Const General: comfortable HEENT Head: Yes normocephalic Neck Neck: Yes supple Chest Chest palpation & inspection: normal inspection of the chest Resp Effort & Inspection: normal respiratory effort and Actively coughing Auscultation: no rhonchi, no wheezes and diminished lung sounds Cardio Heart sounds: S1 normal heart sound present and S2 normal heart sound present GI Palpation (GI): Soft to palpation Skin General skin exam: no rashes or lesions noted Extrem General: No clubbing, No cyanosis and Yes edema Results Reviewed Results Reviewed: CXR-personally reviewed by me, Atelectasis Assessment & Plan Assessment & Plan (1) CHF (congestive heart failure): Code(s): I50.9 - Heart failure, unspecified Category: Medical Qualifiers: Heart failure chronicity: unspecified Heart failure type: unspecified Qualified Code(s): I50.9 - Heart failure, unspecified (2) Pneumonitis: Code(s): J98.4 - Other disorders of lung Category: Medical (3) Dyspnea: Code(s): R06.00 - Dyspnea, unspecified Category: Medical Qualifiers: Dyspnea type: dyspnea on exertion Qualified Code(s): R06.09 - Other forms of dyspnea (4) GOLD (obstructive sleep apnea): Code(s): G47.33 - Obstructive sleep apnea (adult) (pediatric) Category: Medical (5) Cardiac asthma: Code(s): I50.1 - Left ventricular failure, unspecified Category: Medical (6) Pulmonary nodules: Code(s): R91.8 - Other nonspecific abnormal finding of lung field Category: Medical (7) Allergies: Code(s): T78.40XA - Allergy, unspecified, initial encounter Category: Medical Qualifiers: Encounter type: initial encounter Qualified Code(s): T78.40XA - Allergy, unspecified, initial encounter (8) Asthma: Code(s): J45.909 - Unspecified asthma, uncomplicated Category: Medical Qualifiers: Asthma severity: severe Asthma persistence: persistent Asthma complication type: uncomplicated Qualified Code(s): J45.50 - Severe persistent asthma, uncomplicated Plan APAP diuresis as tolerated daily weights continue Trelegy start Augmentin Prednisone taper cough medicine Bloodwork/ allergy testing F/U 3 weeks Orders: Orders Resp Allergy Profile Region I Today J45.909 - Unspecified asthma, uncomplicated, J98.4 - Other disorders of lung, R91.1 - Solitary pulmonary nodule, T78.40XA - Allergy, unspecified, initial encounter Basic Metabolic Panel Today J45.909 - Unspecified asthma, uncomplicated, J98.4 - Other disorders of lung, T78.40XA - Allergy, unspecified, initial encounter Immunoglobulin E Today J45.909 - Unspecified asthma, uncomplicated, J98.4 - Other disorders of lung, T78.40XA - Allergy, unspecified, initial encounter Complete Blood Count Auto Diff Today J45.909 - Unspecified asthma, uncomplicated, J98.4 - Other disorders of lung, T78.40XA - Allergy, unspecified, initial encounter Hypersensitive Pneumonitis Prf Today J45.909 - Unspecified asthma, uncomplicated, J98.4 - Other disorders of lung, R91.8 - Other nonspecific abnormal finding of lung field, T78.40XA - Allergy, unspecified, initial encounter Erythrocyte Sedimentation Rate Today J45.909 - Unspecified asthma, uncomplicated, J98.4 - Other disorders of lung, T78.40XA - Allergy, unspecified, initial encounter Medications: New amoxicillin-pot clavulanate 875-125 mg 1 tab PO BID 20 tabs 0RF 10 days codeine-guaifenesin 10-100 mg/5 mL 10 mL PO Q6H PRN 300 mL 0RF cough 10 days prednisone 10 mg x 10 days, then 1 tab daily x 10 days orally daily; 30 tabs 0RF 20 days Coding Level of Care Code Est Pt Level 5 (85131) Diagnoses Congestive heart failure, unspecified HF chronicity, unspecified heart failure type I50.9 Heart failure chronicity: unspecified Heart failure type: unspecified Pneumonitis J98.4 Dyspnea on exertion R06.09 Dyspnea type: dyspnea on exertion GOLD (obstructive sleep apnea) G47.33 Cardiac asthma I50.1 Pulmonary nodules R91.8 Allergy, initial encounter T78.40XA Encounter type: initial encounter Severe persistent asthma without complication J45.50 Asthma severity: severe Asthma persistence: persistent Asthma complication type: uncomplicated Time Spent (min) 36
--- OUTSIDE RECORDS SUMMARY | 2025-02-25 10:12 | XMS_ITS | Data Portability ---
Author Organization [employer] [facility], [employer] [facility] Address [address] [place] [address] Care Team Providers Care Cattle Killer Name Role Phone HIM CCA OTHER ISHMAELDULCE Primary Care Provider Assessment Encounter Date Assessment Date Assessment LastModified by Organization Details LastModified Time 09/06/2024 09/06/2024 Evaluation in the field was performed by my byproduct engineer colleague, as noted above, I provided real-time direction and supervision for this visit. [facility] 79[facility], [facility], SOB for the past 4 days. Patient is a poor historian. Has history of asthma/COPD but hasn t used a breathing treatment in the [...] there. She still refuses. -She has a FUR TANNER at home but refused to allow us to contact any family to help make decisions. However, the FUR TANNER called her daughter who came to the home and has convinced the patient to go to the ED. -[phone] called for transport Disposition: Transport to [facility] ED Not available 09/06/2024 17:04:47 12/19/2024 12/19/2024 Impression: 79yo/f with multiple chronic medical problems including COPD not on 02 presenting with persistent cough and dyspnea on exertion. Patient is 79 and carries diagnosis of COPD, states for past 3 weeks has been having increased cough and dyspnea when ambulating. Medic on scene discovered prednisone prescription patient was supposed to start from PCP but patient had forgotten. On exam patient is awake, alert, well appearing, in no distress. She is mildly tachypneic on presentation. No associated chest pain. No chest pressure or discomfort. Denies dyspnea at rest. Endorses dyspnea on exertion. Endorses a cough, occasionally productive. No associated fevers/chills, nausea/vomiting, abdominal pain. States feels a generalized weakness or fatigue. No new LE edema or swelling. She does have a pain behind left leg in popliteal area, however this is not new for patient. There is no associated redness, swelling, warmth associated with this discomfort. Rest of her ROS is negative, no pleurisy, no hemoptysis, no new neurologic symptoms of numbness/weaknes s/paresthesias. Eating and drinking normally, ambulating at her baseline. Denies other ROS. Plan: Patient initially mildly tachypneic but without appreciable wheezing. Covid and flu negative. Patient underwent an ambulatory trial, she had increased tachypnea but no associated tachycardia or hypoxia. Patient was given a duoneb treatment given her hx of COPD and afterwards her symptoms significantly improved. States breathing feels improved, repeat lung exam performed and able to appreciate diffuse wheezes throughout afterwards. Tachypnea improved to 24 RR after treatment, 99% on RA. Clinical impression is of a COPD exacerbation given her cough, exertional dyspnea, wheezing on exam, clinical improvement with duoneb. I believe it's reasonable for patient to be on an outpatient COPD treatment plan, continue to observe symptoms at home, and followup with PCP in 24-48 hours for recheck. No chest pain today, no dyspnea at rest. Patient has some isolated leg discomfort but has a normal exam of the legs today. I have a lower suspicion this presents a breakthrough DVT or PE on her pradaxa. Low suspicion for occult ACS, PE, aortic dissection, AAA, ARDS, multifocal pneumonia, sepsis. Discharged from visit with mandatory timed followup and strict return instructions reviewed. Primary care, consider 48 hour recheck, outpatient CXR if symptoms persist. Disposition: We discussed the diagnostic uncertainty of home visits and the risk associated with this. In this case, the patient and I felt this to be an acceptable and reasonable amount of risk given the benefit of avoiding an ED visit. We discussed the need to seek care urgently/emergen tly in the setting of any new or worsening serious symptoms [id number] Not available 12/19/2024 15:40:40 01/14/2025 01/14/2025 service called for burning on urination, foot pain found 79 tenzin with hx asthma DVT on DOAC T2DM c/o continued burning on urination, weakness since diagnosed with UTI and treated with cefuroxime reports isolated n/v d/t cefuroxime yesterday, however able to continue today without side effect also reports chrnoic on going episodic, self-resolving chest pain also reports increase of chronic pain b/l LE L > R reports adherence to DOAC denies SOB reports acute on chronic chest pain VS af 177/80 78 30 (denies complaints) 97%RA reported exam tendenress L > R leg, c/w prior, +CVAT UA: +LE, neg NIT COVID, FLu neg EKG: sinus, no ischemic ST/T changes #UTI sx conitnue check UCx for S&S sensitive to cefuroxime #LE pain reports adherent to DOAC unlikely new DVT formation ddx includes progression of T2DM neuropathy -f/up with PCP #Chest pain acute on chronic no e/o acute ischemia -f/up PCP notify service if worsening or not improvement otherise return to ptimary team Not available 01/14/2025 22:48:37 02/06/2025 02/06/2025 service called for abd pain found 79 tenzin with hx asthma DVT on DOAC T2DM c/o no BM x5d has not taken prescribed lactulose 2d prior neg CXR, neg CT Abd reprots prior urinary sx have resolved with abx tx VSS pt comfortable appearing abd soft #COnstipation resume lactulose notify service if worsening otherwise return to ptimary team Not available 02/06/2025 20:34:28 Plan of Treatment Reminders Order Date Submit Date Provider Last Modified By Organization Details Last Modified Time Details Appointments None recorded. Lab BMP, serum or plasma 2024 025 [facility], [address] [place] [address], [id number] 5 08:14:41 rapid SARS CoV 2 Ag, QL IA, respiratory specimen 2024 025 [facility], [address] [place] [address], [id number] 5 07:59:33 rapid flu (A+B) 2024 025 [facility], [address] [place] [address], [id number] 5 07:59:14 culture, urine 2024 025 [email or web address] (Centralized Electronic Ordering - All Locations), Patient Can Go To The Location Of Their Choice, [id number] 5 18:05:46 urinalysis, dipstick 2024 025 [facility], [address] [place] [address], [id number] 5 08:46:51 rapid flu (A+B) [address], [id number] 5 15:44:46 rapid SARS CoV 2 Ag, QL IA, respiratory specimen [address], [id number] 5 15:45:05 rapid flu (A+B) [address], [id number] 5 21:44:12 rapid SARS CoV 2 Ag, QL IA, respiratory specimen 2024 [facility]25 [facility] [address] [place] [address], [id number] 5 21:44:33 Referral None recorded. Procedures None recorded. Surgeries None recorded. Imaging electrocard iogram 2024 025 [facility], [address] [place] [address], [id number] 5 23:03:04 Medication Orders lactulose 10 gram/15 mL oral solution 2024 025 [place] - [id number], [address], [place], [address], 5 11:15:59 sodium chloride 0.9 % intravenous solution 2024 025 [place] - [id number], [address], [place], [address], 5 19:13:59 simethicone 125 mg chewable tablet 2024 025 [place] - [id number], [address], [place], [address], 5 10:48:15 prednisone 20 mg tablet 2024 025 [email or web address] [place] - [id number], [address], [place], [address], 5 22:03:18 prednisone 20 mg tablet 2024 025 [place] - [id number], [address], [place], [address], 5 08:20:38 ipratropium 0.5 mg-albutero l 3 mg (2.5 mg base)/3 mL nebulizatio n soln 2024 025 [address] [place], [place] - [id number], [address] [place], [address], 5 13:32:30 amoxicillin 875 mg-potassiu m clavulanate 125 mg tablet 2024 025 JORDAN [place], [place] - [id number], [address] [place], [address], 5 08:20:38 acetaminoph en 500 mg tablet 2024 025 [...] Abnormal Flag Note LastModifiedBy Organization Detail LastModifiedTime 12/20/1912/19/2024 rapid SARS CoV 2 Ag, QL IA, respi rator y speci men rapid SARS CoV 2 Ag, QL IA, respiratory specimen negati ve Not Available [facility] [address] [place] [address], [id number] 12/19/2024 13:30:57 12/20/19 25 12/19/2024 rapid flu (A+B) Flu negati ve Not Available [facility] [address] [place] [address], [id number] 12/19/2024 13:30:56 01/15/20 25 01/16/2025 URINE CULTU RE, UROLO GY RENE P urine culture, urology workup Final report Not Available [facility] ([facility]) [address] [facility], [place], [address], 01/16/2025 18:05:46 01/15/20 25 01/16/2025 URINE CULTU RE, UROLO GY RENE P result 1 COMMEN T Cultu re shows less than 10,00 0 colon y formi ng units of bacte maryam per danica liter of urine . This colon y count is not gener ally consi dered to be clini mohsen signi fican t. Not Available [facility] ([facility]) [address] [facility], [place], [address], 01/16/2025 18:05:46 01/15/20 25 01/15/2025 elect massimo akhtar am No observ ation record ed. [email or web address] [facility] [address], [address] 01/15/2025 07:59:50 Result Notes None recorded. Medical Equipment None Reported. Allergies Allergen ID Allergen Name Allergen Category Reaction Reaction Severity Criticality Documentation Date Start Date Code Code System Note Provider Name and Address Organization Details Recorded Time 99700 erythromy brock medicatio n Not available Not available Not available 06/20/2024 4053 RxNorm Not Available [facility] - [facility] 4 13:06:43 92306 cefuroxim e Not available Not available Not available Not available 01/14/2025 2194 RxNorm Not Available [facility] - production 5 13:50:17 8627 azithromy brock medicatio n Not available Not available Not available 05/29/2024 48236 RxNorm Not Available [facility] - production 4 03:45:39 Medications Name Sig Start Date Stop Date Status Note LastModified by Organization Details LastModified Time tolterodine ER 2 mg capsule,ext ended release 24 hr TAKE 1 CAPSULE BY MOUTH ONCE DAILY active Not Available Not Available No t Available amoxicillin 500 mg capsule take capsule 1 hour before dental appointme nt (pt already has 3 other 500mg capsules) 01/14 completed Not Available Not Available Not Available buspirone 5 mg tablet TAKE 1 TABLET BY MOUTH two (2) times a day DIRECTED. TAKE 20 MINUTES BEFORE MEALS active Not Available Not Available No t Available metformin 500 mg tablet TAKE 1 TABLET BY MOUTH two (2) times a day active Not Available Not Available No t Available venlafaxine ER 37.5 mg capsule,ext ended release 24 hr TAKE TWO CAPSULES BY MOUTH ONCE DAILY active Not Available Not Available No t Available prednisone 10 mg tablet TAKE 2 TABLETS BY MOUTH ONCE DAILY FOR 7 DAYS; 1 TAB ONCE DAILY FOR 14 DAYS; 1 TAB EVERY OTHER DAY FOR 28 DAYS 01/14 completed Not Available Not Available Not Available gabapentin 600 mg tablet TAKE 1 TABLET BY MOUTH two (2) times a day active Not Available Not Available No t Available doxycycline hyclate 100 mg capsule TAKE 1 CAPSULE BY MOUTH ONCE DAILY FOR 7 DAYS 01/14 completed Not Available Not Available Not Available ipratropium 0.5 mg-albutero l 3 mg (2.5 mg base)/3 mL nebulizatio n soln Inhale 6 mL by nebulizat ion route. 2024 active Not Available Not Available Not Avai lable tizanidine 2 mg tablet TAKE 1/2 TAB BY MOUTH 3 (THREE) TIMES A DAY active Not Available Not Available No t Available albuterol sulfate 2.5 mg/3 mL (0.083 %) solution for nebulizatio n INHALE THE CONTENT OF 1 VIAL (3mls) VIA NEBULIZER EVERY 6 HOURS NEEDED FOR SHORTNESS OF BREATH OR FOR WHEEZING active Not Available Not Available No t Available ibuprofen 800 mg tablet TAKE 1 TABLET BY MOUTH EVERY 8 HOURS NEEDED FOR PAIN active Not Available Not Available No t Available fluconazole 150 mg tablet TAKE 1 TABLET (150 MG TOTAL) BY MOUTH 1 (ONE) TIME FOR 1 DOSE. TAKE IN 1 WK IF NOT IMPROVED. active Not Available Not Available No t Available benzonatate 200 mg capsule TAKE 1 CAPSULE BY MOUTH 3 (THREE) TIMES A DAY NEEDED FOR COUGH 01/14 completed Not Available Not Available Not Available FreeStyle Lancets 28 gauge USE TO TEST FINGER STICK BLOOD SUGAR ONCE DAILY active Not Available Not Available No t Available prednisone 20 mg tablet TAKE 2 TABLETS BY MOUTH ONCE DAILY FOR 4 DAYS 01/14 completed Not Available Not Available Not Available gabapentin 400 mg capsule TAKE 1 CAPSULE BY MOUTH 3 (THREE) TIMES A DAY FOR 21 DAYS active Not Available Not Available No t Available clobetasol 0.05 % topical cream APPLY A THIN LAYER TO THE AFFECTED AREA two (2) times a day active Not Available Not Available No t Available penicillin V potassium 500 mg tablet TAKE 1 TABLET BY MOUTH 4 (FOUR) TIMES DAILY FOR 7 DAYS 01/14 completed Not Available Not Available Not Available ciprofloxac in 500 mg tablet TAKE 1 TABLET BY MOUTH two (2) times a day. IF symtoms are BETTER AFTER 3 DAYS, can STOP AFTER 3 DAYS 01/14 completed Not Available Not Available Not Available sulfamethox azole 800 mg-trimetho prim 160 mg tablet TAKE 1 TABLET BY MOUTH two (2) times a day FOR 10 DAYS 01/14 completed Not Available Not Available Not Available acetaminoph en 500 mg tablet TAKE 1 TABLET BY MOUTH EVERY 8 HOURS NEEDED FOR PAIN active Not Available Not Available No t Available guaifenesin 100 mg/5 mL oral liquid TAKE 2 TEASPOONF UL (10mls) BY MOUTH 4 (FOUR) TIMES DAILY NEEDED FOR 5 DAYS FOR COUGH AND CONGESTIO N. TAKE WITH mucho WATER active Not Available Not Available No t Available acetaminoph en ER 650 mg tablet,exte nded release TAKE 1 TABLET BY MOUTH EVERY 8 HOURS NEEDED FOR PAIN active Not Available Not Available No t Available meloxicam 7.5 mg tablet TAKE 1 TABLET BY MOUTH ONCE DAILY active Not Available Not Available No t Available methenamine hippurate 1 gram tablet TAKE 1 TABLET BY MOUTH two (2) times a day active Not Available Not Available No t Available amoxicillin 875 mg tablet TAKE 1 TABLET BY MOUTH 3 (THREE) TIMES A DAY FOR 7 DAYS 01/14 completed Not Available Not Available Not Available gabapentin 800 mg tablet TAKE 1 TABLET BY MOUTH 3 (THREE) TIMES A DAY active Not Available Not Available No t Available phenazopyri dine 95 mg tablet TAKE 2 TABLETS BY MOUTH 3 (THREE) TIMES A DAY NEEDED FOR dysuria active Not Available Not Available No t Available doxycycline monohydrate 100 mg capsule TAKE 1 CAPSULE BY MOUTH two (2) times a day FOR 14 DAYS active Not Available Not Available No t Available cephalexin 500 mg capsule TAKE TWO CAPSULES BY MOUTH ONCE. TAKE 1 HOUR prior to procedure 01/14 completed Not Available Not Available Not Available clotrimazol e-betametha sone 1 %-0.05 % topical cream APPLY TOPICALLY 2 (TWO) TIMES A DAY FOR 7 DAYS. APPLY TO AFFECTED AREA 2 TIMES DAILY NEEDED active Not Available Not Available No t Available lidocaine 5 % topical patch APPLY 2 PATCH TOPICALLY ONCE DAILY NEEDED FOR PAIN. remove patch after 12 hours active Not Available Not Available No t Available diclofenac potassium 50 mg tablet TAKE 1 TABLET [...] Not Available Not Available No t Available omeprazole 20 mg capsule,del ayed release TAKE 2 CAPSULES BY MOUTH ONCE DAILY BEFORE MEALS active Not Available Not Available No t Available budesonide 0.5 mg/2 mL suspension for nebulizatio n INHALE THE CONTENT OF 1 VIAL (2MLS) VIA NEBULIZER two (2) times a day active Not Available Not Available No t Available enoxaparin 150 mg/mL subcutaneou s syringe INJECT THE CONTENT OF 1 syringe (150 mg) SUBCUTANE OUSLY ONCE IN THE MORNING MONDAY 02/12 active Not Available Not Available No t Available oxycodone-a cetaminophe n 2.5 mg-325 mg tablet TAKE 1 TABLET BY MOUTH ONCE DAILY AT BEDTIME NEEDED FOR PAIN FOR 7 DAYS; MAY TAKE 1 TABLETS NEEDED active Not Available Not Available No t Available furosemide 20 mg tablet TAKE 2 TABLETS BY MOUTH TUESDAY, TUESDAY , AND tuesday. TAKE 1 TABLET BY MOUTH TUESDAY, TUESDAY, TUESDAY, TUESDAY active Not Available Not Available No t Available mirtazapine 15 mg tablet TAKE 1 TABLET BY MOUTH ONCE DAILY AT BEDTIME FOR insomnia active Not Available Not Available No t Available clobetasol 0.05 % topical ointment APPLY TO THE AFFECTED AREA TOPICALLY 2 X EACH WEEK. apply a thin layer active Not Available Not Available No t Available cefuroxime axetil 500 mg tablet TAKE 1 TABLET BY MOUTH two (2) times a day 02/10 completed Not Available Not Available Not Available estradiol 0.01% (0.1 mg/gram) vaginal cream INSERT 1 gramos VAGINALLY 3 X EACH WEEK DIRECTED active Not Available Not Available No t Available levofloxaci n 750 mg tablet use as directed please take 1 tab the day before (12/09/22) the UDS and 1 tab on day of (12/10/22) UDS (750 mg x 2 tabs) 01/14 completed Not Available Not Available Not Available zolpidem 10 mg tablet TAKE 1 TABLET BY MOUTH ONCE DAILY AT BEDTIME FOR SLEEP active Not Available Not Available No t Available methylpredn isolone 4 mg tablets in a dose pack TAKE DIRECTED 01/14 completed Not Available Not Available Not Available albuterol sulfate HFA 90 mcg/actuati on aerosol inhaler INHALE 2 PUFF BY MOUTH EVERY 6 HOURS NEEDED FOR SHORTNESS OF BREATH OR FOR WHEEZING active Not Available Not Available No t Available fluoxetine 20 mg capsule TAKE 1 CAPSULE BY MOUTH EVERY MORNING FOR depresion active Not Available Not Available No t Available doxycycline hyclate 100 mg tablet TAKE 1 TABLET BY MOUTH ONCE DAILY FOR 7 DAYS 01/14 completed Not Available Not Available Not Available amoxicillin 875 mg-potassiu m clavulanate 125 mg tablet TAKE 1 TABLET BY MOUTH EVERY TWELVE HOURS FOR 5 DAYS 01/14 completed Not Available Not Available Not Available amoxicillin 500 mg-potassiu m clavulanate 125 mg tablet TAKE 1 TABLET BY MOUTH two (2) times a day FOR 7 DAYS 01/14 completed Not Available Not Available Not Available oxycodone 5 mg tablet TAKE 1 TABLET BY MOUTH ONCE DAILY AT BEDTIME NEEDED FOR PAIN active Not Available Not Available No t Available enoxaparin 80 mg/0.8 mL subcutaneou s syringe INJECT THE CONTENT OF 1 syringe SUBCUTANE OUSLY EVERY TWELVE HOURS FOR 14 DAYS active Not Available Not Available No t Available enoxaparin 120 mg/0.8 mL subcutaneou s syringe INJECT THE CONTENT OF 1 syringe (0.8ml) SUBCUTANE OUSLY ONCE DAILY FOR 14 DAYS. replaces pradaxa active Not Available Not Available No t Available Vitamin D3 25 mcg (1,000 unit) tablet TAKE 1 TABLET BY MOUTH ONCE DAILY DIRECTED active Not Available Not Available No t Available metformin ER 750 mg tablet,exte nded release 24 hr TAKE 1 TABLET BY MOUTH ONCE DAILY WITH A MEAL IN THE EVENING active Not Available Not Available No t Available rosuvastati n 10 mg tablet TAKE 1 TABLET BY MOUTH ONCE DAILY active Not Available Not Available No t Available metoprolol tartrate 25 mg tablet TAKE 1 TABLET BY MOUTH two (2) times a day. hold for sbp <100 and HR <60 active Not Available Not Available No t Available ferrous fumarate 324 mg (106 mg iron) tablet TAKE 1 TABLET BY MOUTH EVERY 48 HOUR active Not Available Not Available No t Available nitrofurant oin monohydrate /macrocryst als 100 mg capsule TAKE 1 CAPSULE BY MOUTH two (2) times a day FOR 5 DAYS active Not Available Not Available No t Available Gas Relief Extra Strength 125 mg chewable tablet CHEW AND SWALLOW 1 TAB BY MOUTH EVERY 8 HOURS NEEDED active Not Available Not Available No t Available lactulose 10 gram/15 mL oral solution TAKE 15mls BY MOUTH ONCE DAILY NEEDED FOR CONSTIPAT ION active Not Available Not Available No t [...] Not Available Not Available No t Available Allergy Relief (cetirizine ) 10 mg tablet TAKE 1 TABLET BY MOUTH ONCE DAILY NEEDED FOR lip swelling. take until lip swelling resolves active Not Available Not Available No t Available diclofenac 1 % topical gel APPLY TO THE AFFECTED AREA 4 (FOUR) TIMES DAILY active Not Available Not Available No t Available Qutenza 8 % topical kit Apply Topically Once for neuropath ic foot pain. May apply for patches to cover the area active Not Available Not Available No t Available Pradaxa 150 mg capsule TAKE 1 CAPSULE BY MOUTH two (2) times a day active Not Available Not Available No t Available Combivent Respimat 20 mcg-100 mcg/actuati on solution for inhalation INHALE 1 PUFF BY MOUTH 4 (FOUR) TIMES DAILY NEEDED FOR SHORTNESS OF BREATH OR FOR WHEEZING active Not Available Not Available No t Available Myrbetriq 25 mg tablet,exte nded release TAKE 1 TABLET ONCE DAILY active Not Available Not Available No t Available Linzess 145 mcg capsule TAKE 1 CAPSULE BY MOUTH ONCE DAILY. MAY TAKE two (2) times a day NEEDED active Not Available Not Available No t Available Linzess 290 mcg capsule TAKE 1 CAPSULE BY MOUTH ONCE DAILY active Not Available Not Available No t Available Eliquis 2.5 mg tablet TAKE 1 TABLET BY MOUTH two (2) times a day. stop pradaxa. stop diclofena c active Not Available Not Available No t Available Jardiance 10 mg tablet TAKE 1 TABLET BY MOUTH ONCE DAILY active Not Available Not Available No t Available Breo Ellipta 200 mcg-25 mcg/dose powder for inhalation INHALE 1 PUFF BY MOUTH ONCE DAILY [...] Not Available Not Available No t Available [facility] COVID-19 Antigen Rapid Home Test kit USE DIRECTED NEEDED active Not Available Not Available No t Available Paxlovid 300 mg (150 mg x 2)-100 mg tablets in a dose pack TAKE 3 TABLETS BY MOUTH AT ONCE TWICE DAILY WITH OR WITHOUT FOOD FOR 5 DAYS 01/14 completed Not Available Not Available Not Available Vitals Date Recorded Oxygen saturation Oxygen saturation in Arterial blood by Pulse oximetry Respiratory rate Heart rate Body temperature Systolic And Diastolic Provider Name and Address Organization Details Last Updated DateTime 5 94 % 94 % 32 /min 110 /min 101.1 [degF] 166/78 mm[Hg] Not Available [facility] 5 15:32:44 Date Recorded Oxygen saturation Oxygen saturation in Arterial blood by Pulse oximetry Heart rate Respiratory rate Body temperature Heart rate Oxygen saturation Oxygen saturation in Arterial blood by Pulse oximetry Respiratory rate Systolic And Diastolic Provider Name and Address Organization Details Last Updated DateTime 5 97 % 97 % 99 /min 30 /min 97.9 [degF] 80 /min 97 % 97 % 40 /min 152/90 mm[Hg] Not Available [facility] 5 13:16:00 Date Recorded Body temperature Respiratory rate Heart rate Oxygen saturation Oxygen saturation in Arterial blood by Pulse oximetry Respiratory rate Systolic And Diastolic Provider Name and Address Organization Details Last Updated DateTime 5 98.8 [degF] 30 /min 78 /min 97 % 97 % 16 /min 177/80 mm[Hg] Not Available [employer] 5 21:17:18 Date Recorded Body weight Heart rate Oxygen saturation Oxygen saturation in Arterial blood by Pulse oximetry Body temperature Respiratory rate Body height Systolic And Diastolic Provider Name and Address Organization Details Last Updated DateTime 5 26782.7 44 g 54 /min 98 % 98 % 97.6 [degF] 16 /min 162.56 cm 157/75 mm[Hg] Not Available [employer] 5 18:32:16 Date Recorded Body temperature Oxygen saturation Oxygen saturation in Arterial blood by Pulse oximetry Heart rate Body height Respiratory rate Body weight Systolic And Diastolic Provider Name and Address Organization Details Last Updated DateTime 5 98 [degF] 98 % 98 % 70 /min 157.48 cm 14 /min 905075 g 115/68 mm[Hg] Not Available [employer] 5 19:50:19 Social History None recorded. Functional Status None recorded. Mental Status None recorded. Family History Nothing Reported. Medical History No medical history recorded. Gynecological HistoryNo gynecological history recorded. Obstetrics History GPAL:G 0 P 0 0 0 0 Past Encounters Encounter ID Performer Location Encounter Start Date Encounter Closed Date Diagnosis/Indication Diagnosis SNOMED-CT Code Diagnosis ICD10 Code Diagnosis Note [id number] Yee Summers MD Main - [address] [phone] 01/14/2023 11:31:17 01/15/2023 23:03:10 Chronic pain syndrome 945941489 G89.4 77 year old female with neuropathi [...] up to discuss additional pain control options. 18734 Cr Carrington MD [facility] - [facility] [address] [place] [phone] 07/01/2023 20:48:03 07/02/2023 11:43:22 Pain of knee region [id number] M25.569 Patient reporting acute on chronic knee pain. History of osteoarthr itis, anticoagul ation, and CKD. Doubt gout or septic arthritis given byproduct engineer examinatio n and known history of OA. Sue rosenthal not a good candidate for ketorolac and has been taking acetaminop hen according to age-approp riate dosing. Advised follow-up with PCP and orthopedic s for re-evaluat ion. [id number] HUMZA GARLAND MD Main - [facility] [address] [place] [phone] 11/26/2023 12:50:38 11/27/2023 17:18:04 Acute COVID-19 [id number] U07.1 Evaluation in the field was performed by my byproduct engineer colleague, as noted above, I provided real-time [...] Impression :Covid infection Plan:Famil y requested Paxlovid. Sue rosenthal , pt is taking Dabigatran . Nirmatrelv ir can significan tly increase the blood levels of dabigatran , which may result in increased risk of bleeding complicati ons.We discussed the possibilit y of Molnupirav ir but [facility] : [facility] @ [phone] does not carry it.Pt with low [...] cough, N/V/D, weakness or any other concerns. [id number] [facility] [address] [place] [phone] 06/20/2024 14:15:26 06/20/2024 18:05:31 Chest pain [id number] R07.9 [id number] Missy Forrest MD [facility] - [place] [address] 0 09/06/2024 15:28:58 09/06/2024 18:55:01 Upper respiratory infection [id number] J06.9 Acute resp iratory failure [id number] J96.00 Acute exac erbation of chronic obstructive pulmonary disease [id number] J44.1 [id number] Angel Rabago MD [facility] - [address] [phone] 12/19/2024 13:15:50 12/19/2024 18:33:27 Acute exacerbation of chronic obstructive pulmonary disease [id number] J44.1 [id number] Grazyna Estevez MD [facility] [address] [phone] 01/14/2025 21:17:04 01/14/2025 23:33:53 Acute urinary tract infection [id number] N39.0 Atypical chest pain [id number] R07.89 [id number] HUMZA GARLAND MD [facility] [address] [phone] 02/01/2025 18:20:40 02/04/2025 16:27:18 Diarrhea [id number] R19.7 Evaluation in the field was performed by my byproduct engineer colleague, as noted above, I provided real-time direction and supervisio n for this visit. The evaluation revealed 79-year-ol d female with a history of chronic constipati on, recurrent UTIs, aortic valve replacemen t (06/2024), and chronic anemia on apixaban presents with diarrhea, abdominal distension , and fatigue. She was treated with Macrobid for a UTI three weeks ago, followed by a yeast infection managed with fluconazol e. Soon after, she became weak and bedbound, prompting an ED visit on 01/24/2025, where she was discharged with sienna tijason for physical therapy. The patient had no bowel movement for 8 days, until a family friend administer ed an unknown juice, after which she developed persistent diarrhea. Since then, she has experience d abdominal bloating, distension , intermitte nt pain, reduced oral intake, worsening neuropathy , and progressiv e abdominal enlargemen t with constant grumbling sounds. She denies blood in stool or urine, but notes minor blood on wiping. Diarrhea frequency is unclear but estimated at three episodes over the past few days. She also reports daily dizziness since her valve replacemen t. She denies chest pain, shortness of breath, fever, or symptoms of ongoing UTI. Vital Signs: Stable. Afebrile.P hysical Exam:Lungs : Clear to auscultati on bilaterall yAbdomen: Distended in appearance ; bowel sounds audible without use of a stethoscop e; no guarding, rebound, or pulsatile massesExtr emities: No edema; circulatio n, motor, and sensation intactNeur ologic: No focal deficitsAl lergies: ReviewedEl ectrolytes : Within normal limitsBUN: 12 (previousl y 10 on 01/24)Creat inine: 0.9 (previousl y 0.67 on 01/24)Hemat ocrit: 35% (previousl y 33.7%)Hemo globin: 11.9 g/dL (previousl y 10.7 g/dL) Impression :Elderly female with recent diarrhea and ongoing abdominal distension following prior constipati on. Distension and bowel sounds suggest retained gas and possible ileus vs. post-const ipation bowel dysregulat ion. No signs of acute obstructio n or peritoniti s at this time. Plan:Sandra l saline 500 mL IV administer edSimethic one prescripti on sent to pharmacy to address gas and abdominal bloatingRe commend abdominal KUB at urgent care to evaluate for possible ileus or stool burden; low suspicion for obstructio n at present due to absence of nausea or vomitingEn couraged oral hydration to support GI motility and overall statusMay take acetaminop hen 500 mg every 8 hours as neededRed flag symptoms reviewed with the patient and daughter Primary care, consider__ _ Dispositio n: We [...] new or worsening serious symptoms, particular ly worsening abdominal pain, persistent vomiting, inability to pass stool or gas, fever, blood in stool, or signs of dehydratio n [id number] Grazyna Estevez MD [facility] Medical [address] [phone] 02/06/2025 19:50:16 02/06/2025 22:07:15 Chronic constipation [id number] K59.09 Health Concerns Section Related Observation LastModified by Organization Detai ls LastModified Time None Recorded Concern Status LastModified by Organization Details LastModified Time None Recorded Advance Directives Directive None Recorded Payers Insurance Date Sequence Insurance Name Policy Number Policy Orozco Covered Member ID Orozco Member ID Guarantor Name 02/06/2025 1 [facility] - DOS ON OR AFTER 2022 - DUAL ELIGIBLE - SHELTER OPTIONS AND ONE CARE (MEDICARE REPLACEMENT/ADV ANTAGE - HMO) Kaitlynn Javier [id number] Kaitlynn Javier OBGyn Episode No OBEpisode recorded.
--- OUTSIDE RECORDS SUMMARY | 2025-02-25 10:12 | XMS_ITS | Clinical Summary ---
Author Organization [facility] Address [address] [place] [address] Phone Care Team Providers Care Extension Associate Name Role Phone Gokul Cleveland MD Primary Care Provider [phone] Allergies Active Allergy Reactions Criticality Noted Date Comments Erythromycin 01/18/2025 Medications No known medications Active Problems No known active problems Encounters Date Type Department Care Team Description 01/18/2025 4:34 PM EDT - 01/18/2025 6:59 PM EDT Emergency [facility] Emergency [address] [place] [address] Tej Azevedo MD Vaginal candidiasis (Primary Dx); Neuropathy Discharge Disposition: Home or Self Care from Last 3 Months Social History Tobacco Use Types Packs/Day Years Used Date Smoking Tobacco: Never Assessed Comments Unknown Sex and Gender Information Value Date Recorded Sex Assigned at Not on file Legal Sex Female 12:42 AM EST Gender Identity Not on file Sexual Orientation Not on file Obstetrics History Last Filed Vital Signs Vital Sign Reading Time Taken Comments Blood Pressure 173/72 01/18/2025 4:51 PM EDT Pulse 63 01/18/2025 4:51 PM EDT Temperature 36.6 C (97.9 F) 01/18/2025 12:49 PM EDT Respiratory Rate 18 01/18/2025 4:51 PM EDT Oxygen Saturation 97% 01/18/2025 4:52 PM EDT Inhaled Oxygen Concentration - - Weight 86.2 kg (190 lb) 01/18/2025 12:49 PM EDT Height 162.6 cm (5' 4 ) 01/18/2025 12:49 PM EDT Body Mass Index 32.61 01/18/2025 12:49 PM EDT Plan of Treatment Health Maintenance Due Date Last Done Comments Diabetes: Annual Foot Exam 1955 Diabetes: Annual Retina Eye Exam 1955 COVID-19 Vaccine ( season) 2024 03/16/2022, 08/14/2021, 09/24/2020, Additional history exists Cholesterol Screening (Lipid Panel) 05/10/2024 Falls Risk Assessment 05/10/2024 Hepatitis C Screening 05/10/2024 Medicare Annual Wellness Visit 05/10/2024 Osteoporosis Screening (Bone Density Screening) 05/10/2024 Social Influencers of Health Screening 05/10/2024 Depression Screening 08/01/2024 Diabetes: Annual Urine Albumin-Creatinine Ratio (uACR) 01/18/2025 Diabetes: Blood Sugar Control Test (HGBA1C) 01/18/2025 Influenza Vaccine (#1) 2025 , 05/02/2023, 06/08/2022, Additional history exists Diabetes: Annual GFR (Glomerular Filtration Rate) 01/18/2026 01/18/2025 Hypertension/CHF/CAD Annual BMP Blood Test 01/18/2026 01/18/2025 DTaP,Tdap,and Td Vaccines (2 - Td or Tdap) 10/30/2029 10/31/2019 Zoster Vaccines Completed 10/31/2019, 05/01/2019 Pneumococcal Vaccine: 50+ Years Completed 05/02/2023, 11/30/2021 RSV Immunization Adult Patients Completed 04/16/2024 HIB Vaccines Aged Out No longer eligi [...] to complete this topic RSV Immunization Patients Under 20 months Aged Out No longer eligible based on patient's age to complete this topic Varicella Vaccines Aged Out No longer eligible based on patient's age to complete this topic Procedures Procedure Name Priority Date/Time Associated Diagnosis Comments ECG ANNOTATED 01/21/2025 CBC WITH AUTO DIFFERENTIAL STAT 01/18/2025 1:47 PM EDT MAGNESIUM STAT 01/18/2025 1:47 PM EDT BASIC METABOLIC PANEL STAT 01/18/2025 1:47 PM EDT CBC AND DIFFERENTIAL STAT 01/18/2025 1:47 PM EDT ECG 12-LEAD STAT 01/18/2025 1:41 PM EDT MORGAN URINE CULTURE TUBE STAT 01/18/2025 1:36 PM EDT URINALYSIS WITH REFLEX MICROSCOPIC AND CULTURE STAT 01/18/2025 1:36 PM EDT URINALYSIS WITH REFLEX MICROSCOPIC AND CULTURE STAT 01/18/2025 1:36 PM EDT CULTURE URINE STAT 01/18/2025 1:36 PM EDT from Last 3 Months Results * ECG-Annotated (01/21/2025) us Provider Onbase MD ECG ORDERABLES Final Result * (ABNORMAL) CBC auto differential (01/18/2025 1:47 PM EDT) WBC 7.8 4.8 - 10.8 K/mcL LAB HEMETOLOGY METHOD 01/18/2025 2:40 PM EDT [facility] RBC 3.90 3.80 - 4.80 M/mcL LAB HEMETOLOGY METHOD 01/18/2025 2:40 PM EDT [facility] Hemoglobin 11.0(L) 11.5 - 16.0 g/dL LAB HEMETOLOGY METHOD 01/18/2025 2:40 PM EDT [facility] Hematocrit 35.2 35.0 - 47.0 % LAB HEMETOLOGY METHOD 01/18/2025 2:40 PM EDT [facility] MCV 89.8 79.0 - 98.0 FL LAB HEMETOLOGY METHOD 01/18/2025 2:40 PM EDT [facility] MCH 28.1 27.0 - 32.0 pcg LAB HEMETOLOGY METHOD 01/18/2025 2:40 PM EDT [facility] MCHC 31.3(L) 32.0 - 37.0 g/dL LAB HEMETOLOGY [facility] RDW 15.1(H) 11.0 - 15.0 % LAB HEMETOLOGY METHOD 01/18/2025 2:40 PM EDT [facility] Platelets 201 130 - 400 K/mcL LAB HEMETOLOGY METHOD 01/18/2025 2:40 PM EDT [facility] MPV 9.1 7.0 - 11.0 FL LAB HEMETOLOGY METHOD 01/18[facility]2025 [facility] NRBC 0.0 <1.0 % LAB HEMETOLOGY METHOD 01/18/2025 2:40 PM EDT [facility] NRBC Absolute 0.00 <0.10 K/mcL LAB HEMETOLOGY METHOD 01/18/2025 2:40 PM EDT [facility] Neutrophils Relative 76.6 % LAB HEMETOLOGY METHOD 01/18/2025 2:40 PM EDT [facility] Lymphocytes Relative 13.7 % LAB HEMETOLOGY METHOD 01/18/2025 2:40 PM EDT [facility] Monocytes Relative 7.0 % LAB HEMETOLOGY METHOD 01/18/2025 2:40 PM EDT [facility] Eosinophils Relative 1.3 % LAB HEMETOLOGY METHOD 01/18/2025 2:40 PM EDT [facility] Basophils Relative 0.8 % LAB HEMETOLOGY METHOD 01/18/2025 2:40 PM EDT [facility] Immature Granulocytes Relative 0.6 % LAB HEMETOLOGY METHOD 01/18/2025 2:40 PM EDT [facility] Neutrophils Absolute 6.00 1.50 - 7.00 K/mcL LAB HEMETOLOGY METHOD 01/18/2025 2:40 PM EDT [facility] Lymphocytes Absolute 1.07 1.00 - 5.00 K/mcL LAB HEMETOLOGY METHOD 01/18/2025 2:40 PM EDT [facility] Monocytes Absolute 0.55 0.20 - 1.00 K/mcL LAB HEMETOLOGY METHOD 01/18/2025 2:40 PM EDT [facility] Eosinophils Absolute 0.10 0.00 - 0.50 K/mcL LAB HEMETOLOGY METHOD 01/18/2025 2:40 PM EDT [facility] Basophils Absolute 0.06 0.00 - 0.20 K/mcL LAB HEMETOLOGY METHOD 01/18/2025 2:40 PM EDT [facility] Immature Granulocytes Absolute 0.05(H) 0.00 - 0.03 K/mcL LAB HEMETOLOGY METHOD 01/18/2025 2:40 PM EDT [facility] Blood Venous blood specimen / Unknown Venipuncture / Unknown 01/18/2025 1:47 PM EDT 01/18/2025 2:26 PM EDT us Zafar B Ariel BAIN LAB BLOOD ORDERABLES Final Resu lt [facility] [address] [place] [address], [place] [phone] * Magnesium (01/18/2025 1:47 PM EDT) Pathologist [facility] Magnesium 2.3 1.9 - 2.6 mg/dL LAB CHEMISTRY METHOD 01/18/2025 3:05 PM EDT [facility] Blood Venous blood specimen / Unknown Venipuncture / Unknown 01/18/2025 1:47 PM EDT 01/18/2025 2:26 PM EDT us Zafar B Ariel BAIN LAB BLOOD ORDERABLES Final Resu lt [facility] [address] [place] [address], [place] [phone] * (ABNORMAL) Basic metabolic panel (01/18/2025 1:47 PM EDT) Pathologist [facility] Sodium 142 133 - 145 mmol/L LAB CHEMISTRY METHOD 01/18/2025 3:[address] [facility] Potassium 4.5 3.5 - 5.5 mmol/L LAB CHEMISTRY METHOD 01/18/2025 3:[address] [facility] Chloride 108 96 - 110 mmol/L LAB CHEMISTRY METHOD 01/18/2025 3:[address] [facility] CO2 27 21 - 32 mmol/L LAB CHEMISTRY METHOD 01/18/2025 3:[address] [facility] Anion Gap 7 3 - 11 LAB CHEMISTRY METHOD 01/18/2025 3:[address] [facility] Glucose 112(H) 70 - 100 mg/dL LAB CHEMISTRY METHOD 01/18/2025 3:[address] [facility] BUN 13 5 - 25 mg/dL LAB CHEMISTRY METHOD 01/18/2025 3:[address] [facility] Creatinine 0.84 0.50 - 1.10 mg/dL LAB CHEMISTRY METHOD 01/18/2025 3:05 PM EDT [facility] eGFR 71 >=60 mL/min/1. 73m2 LAB CHEMISTRY METHOD 01/18/2025 3:05 PM EDT [facility] Comment:Calculation based on the Chronic Kidney Disease Epidemiology Collaboration (CKD-EPI) equation refit without adjustment for race. BUN/Creatinine Ratio 15.5 LAB CHEMISTRY METHOD 01/18/2025 3:05 PM EDT [facility] Calcium 9.5 8.5 - 10.5 mg/dL LAB CHEMISTRY METHOD 01/18/2025 3:05 PM EDT [facility] Blood Venous blood specimen / Unknown Venipuncture / Unknown 01/18/2025 1:47 PM EDT 01/18/2025 2:26 PM EDT Zafar Johanna George MD LAB BLOOD ORDERABLES Final Resu lt Performing Organization Address City/[facility]/ZIP Co de Phone Number [facility] [address] [place] [address], [place] [phone] * ECG 12 lead (01/18/2025 1:41 PM EDT) Ventricular Rate ECG 71 BPM GEMUSE Atrial Rate 71 BPM GEMUSE P-R Interval 124 ms GEMUSE QRS Duration 100 ms GEMUSE Q-T Interval 402 ms GEMUSE QTc 436 ms GEMUSE P Wave Loiza 48 degrees GEMUSE R Loiza -28 degrees GEMUSE T Loiza 113 degrees GEMUSE ECG Interpretation Normal sinus rhythm Moderate voltage criteria for LVH, may be normal variant ( R in aVL , Jeremiah product ) Nonspecific T wave abnormality Abnormal ECG No previous ECGs available Confirmed by DENISE ROBERTSON ([id number]) on 01/18/2025 8:22:59 PM GEMUSE 01/18/2025 1:41 PM EDT 01/18/2025 8:22 PM EDT Zafareffie George MD ECG ORDERABLES Final Result Performing Organization Address City/[facility]/ZIP Co de Phone Number GEMUSE * (ABNORMAL) Urinalysis with reflex microscopic and culture (01/18/2025 1:36 PM EDT) Specific [place] Urine 1.023 1.003 - 1.030 LAB URINALYSIS - AUTOMATED METHOD [facility]20[facility] pH, Urine 7.5 5.0 - 8.0 pH LAB URINALYSIS - AUTOMATED METHOD 01/18/2025 2:44 PM EDT [facility] Leukocytes, Urine Trace(A) Negative LAB URINALYSIS - AUTOMATED METHOD 01/18/2025 2:[address] [facility] Nitrite, Urine Negative Negative LAB URINALYSIS - AUTOMATED METHOD 01/18/2025 2:[address] [facility] Protein, Urine 30(A) <=Trace mg/dL LAB URINALYSIS - AUTOMATED METHOD 01/18/2025 2:[address] [facility] Glucose, Urine Negative Negative mg/dL LAB URINALYSIS - AUTOMATED METHOD 01/18/2025 2:[address] [facility] Ketones, Urine Negative Negative mg/dL LAB URINALYSIS - AUTOMATED METHOD 01/18/2025 2:[address] [facility] Urobilinogen, Urine 1.0 0.2 - 1.0 mg/dL LAB URINALYSIS - AUTOMATED METHOD 01/18/2025 2:[address] [facility] Bilirubin, Urine Negative Negative LAB URINALYSIS - AUTOMATED METHOD 01/18/2025 2:[address] [facility] Blood, Urine Negative Negative LAB URINALYSIS - AUTOMATED METHOD 01/18/2025 2:[address] [facility] RBC, Urine 1.1 0 - 4 /HPF LAB URINALYSIS - AUTOMATED METHOD 01/18/2025 2:[address] [facility] WBC, Urine 1.7 0 - 4 /HPF LAB URINALYSIS - AUTOMATED METHOD 01/18/2025 2:44 PM EDT [facility] Squamous Epithelial, Urine 71(H) 0 - 60 /LPF LAB URINALYSIS - AUTOMATED METHOD 01/18/2025 2:44 PM EDT [facility] Bacteria, Urine Negative Negative /HPF LAB URINALYSIS - AUTOMATED METHOD 01/18/2025 2:44 PM EDT [facility] Hyaline Casts, Urine 1.2 0 - 3 /LPF LAB URINALYSIS - AUTOMATED METHOD 01/18/2025 2:44 PM EDT [facility] Urine Urine specimen obtained by clean catch procedure / Unknown Non-blood Collection / Unknown 01/18/2025 1:36 PM EDT 01/18/2025 2:26 PM EDT Zafareffie George MD LAB URINE ORDERABLES Final Resu lt Performing Organization Address [facility]/ZIP Co de Phone Number [facility] [address] [place] [address], [place] [phone] * Morgan urine culture tube (01/18/2025 1:36 PM EDT) Pathologist [facility] Extra Tube Hold for add-ons. 01/21/2025 5:01 PM EDT [facility] Comment:Auto resulted. Urine Urine specimen obtained by clean catch procedure / Unknown Non-blood Collection / Unknown 01/18/2025 1:36 PM EDT 01/18/2025 2:26 PM EDT Zafar George MD LAB URINE ORDERABLES Final Resu lt Performing Organization Address City/[facility]/ZIP Co de Phone Number [facility] [address] [place] [address], [place] [phone] * (ABNORMAL) Culture urine (01/18/2025 1:36 PM EDT) Culture, Urine >100,000 CFU/mL Klebsiella oxytoca ESBL(A) YANIRA 01/21/2025 10:26 AM EDT [facility] Comment: THIS ORGANISM IS POSITIVE FOR EXTENDED SPECTRUM BETA-LACTAMASE (ESBL). EXTENDED SPECTRUM BETA-LACTAMASE PRODUCING ORGANISMS DEMONSTRATE DECREASED ACTIVITY WITH PENICILLILNS, CEPHALOSPORINS AND AZTREONAM. This is an edited result. Previous organism was Gram negative bacilli on 01/20/2025 at 0824 EDT. Urine Urine specimen obtained by clean catch procedure / Unknown Non-blood Collection / Unknown 01/18/2025 1:36 PM EDT 01/18/2025 2:44 PM EDT Narrative Organism Antibiotic Method Susceptibility Klebsiella oxytoca ESBL Amoxicillin/Clavulanate YANIRA 16 ug/ml: Intermediate Klebsiella oxytoca ESBL Ampicillin/Sulbactam YANIRA 16 ug/ml: Intermediate Klebsiella oxytoca ESBL Cefoxitin YANIRA <=4 ug/ml: Susceptible Klebsiella oxytoca ESBL Ceftazidime YANIRA >=32 ug/ml: Resistant Klebsiella oxytoca ESBL Ceftriaxone YANIRA >=64 ug/ml: Resistant Klebsiella oxytoca ESBL Cefepime YANIRA >=32 ug/ml: Resistant Klebsiella oxytoca ESBL Meropenem YANIRA <=0.25 ug/ml: Susceptible Klebsiella oxytoca ESBL Amikacin YANIRA 4 ug/ml: Susceptible Klebsiella oxytoca ESBL Gentamicin YANIRA >=16 ug/ml: Resistant Klebsiella oxytoca ESBL Ciprofloxacin YANIRA 0.5 ug/ml: Intermediate Klebsiella oxytoca ESBL Levofloxacin YANIRA 0.25 ug/ml: Susceptible Klebsiella oxytoca ESBL Nitrofurantoin YANIRA 32 ug/ml: Susceptible Klebsiella oxytoca ESBL Trimethoprim/Sul famethoxazo le YANIRA >=320 ug/ml: Resistant us Zafar B Ariel BAIN LAB MICROBIOLOGY - GENERAL ORDE SHARRON Final Result [facility] [address] [place] [address], from Last 3 Months Additional Health Concerns Infection Onset Date Last Indicated ESBL 01/18/2025 01/18/2025 Insurance [facility] MEDICARE Member Subscriber Plan / Payer (Ef fective 2020-Present) Name:JIM LOPEZ Relation to Subscriber:Self Name:Jim Lopez Payer ID:[id number] Group ID:[id number] Type:Not on file Address: [place] [address] [place] [id number] Care Teams Extension Associate Relationship Specialty Start Date End Date Gokul Cleveland MD [address] [place] [address] PCP - General Internal Medicine 01/18/25
== END 2025-02-25 09:56 | disposition home or self-care (01) ==
LOC: HO.HPS 09:24
PROVIDERS: PCP Internal Medicine; Visit Provider Hospitalist
DX: I50.9 Heart failure, unspecified (principal); J98.4 Other disorders of lung; R06.09 Other forms of dyspnea; G47.33 Obstructive sleep apnea (adult) (pediatric); I50.1 Left ventricular failure, unspecified; R91.8 Other nonspecific abnormal finding of lung field; T78.40XA Allergy, unspecified, initial encounter; J45.50 Severe persistent asthma, uncomplicated
CPT/HCPCS: 99214

== ENCOUNTER 2025-03-20 09:19 | Outpatient (AMB) | payer OTHER, SELFPAY ==
[2025-03-20 09:23] VITALS: BP 122/64; PULSE 100; O2SAT 96; BMI 33.6
--- NOTE | 2025-03-20 09:23 | A.OFFVIS_ITS ---
Vital Signs 03/20/25 09:23 Height 5 ft 4 in Weight 196 lb BMI 33.6 BP 122/64 Blood Pressure Location Lt brachial Position Sitting Pulse 100 Pulse Source Pulse Oximeter Pulse Oximetry (%) 96 Oxygen Delivery Method Room Air Intake Visit Reasons: Shortness of breath/Prod cough / per Dr Ramos Allergies erythromycin base Allergy (Intermediate, Verified 03/20/25 09:38) Fainting HPI Comments Details: The patient is a 79 year woman who apparently was in her usual health until back on fever after undergoing TAVR for her aortic stenosis. She started developing worsening shortness of breath and cough. She has had some chest congestion shortness of breath cough moderate severity. She has been on multiple courses of prednisone and also antibiotics. Without any significant improvement of her symptoms. More recently she did undergo a CTA which I personally reviewed demonstrating some areas of ground-glass opacities primarily at the bases of the lungs. This indeed could be a component of pneumonitis but also can be cardiogenic pulmonary edema. During that evaluation she also had blood work including a brain atretic peptide of 1800 +. Prior to this blood work her brain atretic peptide was always within normal ranges. This is a very drastic significant change for her. She was started on diuresis going up from 20 mg 40 mg of Lasix and she is feeling a lot better. 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 The patient never really had diagnosis of bronchitis or COPD or asthma prior to her surgery. In the meantime will going to assess her for obstructive airway disease is with pulmonary function studies and also blood work to assess her for pneumonitis. For now the prednisone has been bothering her is causing her some adverse effects specially with some discomfort of her feet. Will plan to start decreasing the prednisone increasing her inhaled steroids to try to minimize on the adverse effects. In addition to this the patient is having some daytime drowsiness. Her Phoenix score is elevated. She has significant cardiovascular risk factors. Will have her come back with PFTs and hopes sleep study and will review them and her follow-up in 6-8 weeks. If she has any issues prior to this she will call for an earlier assessment. 01/21/2025 the patient is here for a pulmonary follow-up visit. She continues to get worse overall. She is complaining of significant neuropathic pain their feet that she can not walk. She is also feeling very drowsy and weak. Most likely is related to the fact that she is taking high dose of gabapentin. I am concerned that she is at risk for falls. She is there with her family. I did recommend she can back off on the Neurontin as she gets used to it at nighttime and then she can increase it accordingly. She worked closely with her primary care doctor regarding her significant neuropathy. She does have significant daytime drowsiness. Phoenix score is elevated 14/24. She did have sleep study demonstrating evidence of sleep apnea and hypoxia. Ultimately underwent a titration study demonstrating sleep apnea and she did benefit from a CPAP of 9 cm. Therefore will start her on APAP as soon as possible through a local [employer] company. The patient is agreeable to this. She did well with the N20 medium mask so therefore that is 1 will going to request. She will come in 3-4 months to review her progress on her machine. In the meantime she will continue with diuresis as tolerated. And she will continue to monitor closely any medication interaction. Again the Neurontin possibly causing her to have significant fatigue and at risk for falls in currently she is on a wheelchair. 02/25/2025 the patient is here for a sick visit. She is still having hard time with the breathing. She has been to the hospital multiple times. She has been having more wheezing and coughing. The coughing is very significant does not allow her to tolerate the CPAP. She did go to the hospital. Primarily at [facility] so I do not have any records. She is already on Trelegy and also using her nebulizer treatment. Currently on prednisone. Will go ahead and give her additional prednisone for slow taper. She also complains that her cough has gotten more productive in nature. Yellowish phlegm. Will go ahead and start her on some Augmentin. She will monitor closely for any allergic reactions. The last time she did get some doxycycline. The patient also will use cough medication to help her settle down the cough and hopefully she can use her CPAP although she is reluctant to use it at this time. The patient will go ahead and undergo blood work to see if she is a candidate for any biologic therapies in view of her ongoing respiratory symptoms. 03/20/2025 the patient is here for pulmonary follow-up visit. Overall she is doing okay although she continues to cough. The cough is nonproductive in nature. She completed the course of antibiotics and prednisone. We did look at the blood work and no evidence of any allergies noted. The patient is still struggling using her CPAP. She knows that is good for her cardiovascular risk. She needs to start using it more regularly. Her cough since be dry in nature. Worse at nighttime and moderate severity. Will go ahead and give her additional cough medication. The patient can hopefully get the Tessalon Perles to help her alleviate some of the symptoms. She can also start nasal sprays including fluticasone ipratropium nasal spray for upper airway cough syndrome. She will follow-up in the spring. If she has any issues prior to this she will call for an earlier assessment. [facility] Medical History (Updated 02/25/25 @ 22:20 by Marcos Ramos MD) Asthma Allergies Pulmonary nodules Cardiac asthma GOLD (obstructive sleep apnea) Dyspnea Pneumonitis CHF (congestive heart failure) Social History (Updated 01/21/25 @ 11:20 by Sharon Yip CMA) Patient Tobacco Use Status: Former Tobacco user Review of Systems Const Reports daytime sleepiness, Reports difficulty sleeping, Reports fatigue, Reports snoring and Reports weight gain Eyes Reports no additional complaints ENT Reports no additional complaints Card Denies chest pain and Reports dyspnea on exertion Resp Reports cough, Reports dyspnea on exertion, Reports snoring and Denies wheezing GI Reports no additional complaints Musc Reports abnormal gait Skin/Breast Denies rash Neuro Reports no additional complaints, Reports abnormal gait and Reports paresthesias Endo Reports no additional complaints and Reports fatigue Tex/Lymph Denies easy bleeding and Denies easy bruising Aller/Immun Denies wheezing Physical Exam Const General: comfortable HEENT Head: Yes normocephalic Neck Neck: Yes supple Chest Chest palpation & inspection: normal inspection of the chest Resp Effort & Inspection: normal respiratory effort Auscultation: clear to auscultation bilaterally, no rhonchi and no wheezes Cardio Heart sounds: S1 normal heart sound present and S2 normal heart sound present GI Palpation (GI): Soft to palpation Skin General skin exam: no rashes or lesions noted Extrem General: No clubbing, No cyanosis and Yes edema Assessment & Plan Assessment & Plan (1) CHF (congestive heart failure): Code(s): I50.9 - Heart failure, unspecified Category: Medical Qualifiers: Heart failure type: unspecified Heart failure chronicity: unspecified Qualified Code(s): I50.9 - Heart failure, unspecified (2) Pneumonitis: Code(s): J98.4 - Other disorders of lung Category: Medical (3) Dyspnea: Code(s): R06.00 - Dyspnea, unspecified Category: Medical Qualifiers: Dyspnea type: dyspnea on exertion Qualified Code(s): R06.09 - Other forms of dyspnea (4) GOLD (obstructive sleep apnea): Code(s): G47.33 - Obstructive sleep apnea (adult) (pediatric) Category: Medical (5) Cardiac asthma: Code(s): I50.1 - Left ventricular failure, unspecified Category: Medical (6) Pulmonary nodules: Code(s): R91.8 - Other nonspecific abnormal finding of lung field Category: Medical (7) Allergies: Code(s): T78.40XA - Allergy, unspecified, initial encounter Category: Medical Qualifiers: Encounter type: initial encounter Qualified Code(s): T78.40XA - Allergy, unspecified, initial encounter (8) Asthma: Code(s): J45.909 - Unspecified asthma, uncomplicated Category: Medical Qualifiers: Asthma severity: severe Asthma persistence: persistent Asthma complication type: uncomplicated Qualified Code(s): J45.50 - Severe persistent asthma, uncomplicated Plan APAP diuresis as tolerated daily weights continue Trelegy cough medicine start Benzonates start Fluticasone nasal spray start ipratropiun nasal spray as needed F/U Spring 2025 Medications: New benzonatate 200 mg PO BID PRN 60 caps 6RF cough 30 days ipratropium bromide administer into each nostril 2 sprays intranasal TID PRN 15 mL 6RF allergy symptoms fluticasone propionate 50 mcg/actuation 2 sprays intranasal DAILY 15.8 mL 11RF 30 days J31.0 - Chronic rhinitis Refilled codeine-guaifenesin 10-100 mg/5 mL 10 mL PO Q6H PRN 300 mL 0RF cough 10 days Coding Level of Care Code Est Pt Level 4 (90474) Complex EM visit Add On G2211 Diagnoses Congestive heart failure, unspecified HF chronicity, unspecified heart failure type I50.9 Heart failure type: unspecified Heart failure chronicity: unspecified Pneumonitis J98.4 Dyspnea on exertion R06.09 Dyspnea type: dyspnea on exertion GOLD (obstructive sleep apnea) G47.33 Cardiac asthma I50.1 Pulmonary nodules R91.8 Allergy, initial encounter T78.40XA Encounter type: initial encounter Severe persistent asthma without complication J45.50 Asthma severity: severe Asthma persistence: persistent Asthma complication type: uncomplicated Time Spent (min) 17
--- OUTSIDE RECORDS SUMMARY | 2025-03-20 10:00 | XMS_ITS | Clinical Summary ---
Author Organization [facility] Address [address] [place] [address] Phone Care Team Providers Care Treasury Specialist Name Role Phone Gokul Cleveland MD Primary Care Provider [phone] Allergies Active Allergy Reactions Criticality Noted Date Comments Erythromycin 01/18/2025 Medications No known medications Active Problems No known active problems Encounters Date Type Department Care Team Description 01/18/2025 4:34 PM EDT - 01/18/2025 6:59 PM EDT Emergency [facility] Emergency [address] [place] [address] Tej Azevedo MD Vaginal candidiasis [...] LAB HEMETOLOGY METHOD 01/18/2025 2:40 PM EDT [facility] RBC 3.90 3.80 - 4.80 M/mcL LAB HEMETOLOGY METHOD 01/18/2025 2:40 PM EDT [facility] Hemoglobin 11.0(L) 11.5 - 16.0 g/dL LAB HEMETOLOGY METHOD 01/18/2025 2:40 PM EDT [facility] Hematocrit 35.2 35.0 - 47.0 % LAB HEMETOLOGY METHOD 01/18/2025 2:40 PM EDT [facility] MCV 89.8 79.0 - 98.0 FL LAB HEMETOLOGY METHOD 01/18/2025 2:40 PM EDT [facility] MCH 28.1 27.0 - 32.0 pcg LAB HEMETOLOGY METHOD 01/18/2025 2:40 PM EDT [facility] MCHC 31.3(L) 32.0 - 37.0 g/dL [facility] RDW 15.1(H) 11.0 - 15.0 % LAB HEMETOLOGY METHOD 01/18/2025 2:40 PM EDT [facility] Platelets 201 130 - 400 K/mcL LAB HEMETOLOGY METHOD 01/18/2025 2:40 PM EDT [facility] MPV 9.1 7.0 - 11.0 FL LAB [facility]OLOGY [facility] NRBC 0.0 <1.0 % LAB HEMETOLOGY METHOD 01/18/2025 2:40 PM EDT [facility] NRBC Absolute 0.00 <0.10 K/mcL LAB HEMETOLOGY METHOD 01/18/2025 2:40 PM EDT [facility] Neutrophils Relative 76.6 % LAB HEMETOLOGY METHOD 01/18/2025 2:40 PM EDT [facility] Lymphocytes Relative 13.7 % LAB HEMETOLOGY METHOD 01/18/2025 2:40 PM EDT [facility] Monocytes Relative 7.0 % LAB HEMETOLOGY METHOD 01/18/2025 2:40 PM EDT [facility] Eosinophils Relative 1.3 % LAB HEMETOLOGY METHOD 01/18/2025 2:40 PM EDT [facility] Basophils Relative 0.8 % LAB HEMETOLOGY METHOD 01/18/2025 2:40 PM EDT [facility] Immature Granulocytes Relative 0.6 % LAB HEMETOLOGY METHOD 01/18/2025 2:40 PM EDT [facility] Neutrophils Absolute 6.00 1.50 - 7.00 K/mcL LAB HEMETOLOGY METHOD 01/18/2025 2:40 PM EDT [facility] Lymphocytes Absolute 1.07 1.00 - 5.00 K/mcL LAB HEMETOLOGY METHOD 01/18/2025 2:40 PM EDT [facility] Monocytes Absolute 0.55 0.20 - 1.00 K/mcL LAB HEMETOLOGY METHOD 01/18/2025 2:40 PM EDT [facility] Eosinophils Absolute 0.10 0.00 - 0.50 K/mcL LAB HEMETOLOGY METHOD 01/18/2025 2:40 PM EDT [facility] Basophils Absolute 0.06 0.00 - 0.20 K/mcL LAB HEMETOLOGY METHOD 01/18/2025 2:40 PM EDT [facility] Immature Granulocytes Absolute 0.05(H) 0.00 - 0.03 K/mcL LAB HEMETOLOGY METHOD 01/18/2025 2:40 PM EDT [facility] Blood Venous blood specimen / Unknown Venipuncture / Unknown 01/18/2025 1:47 PM EDT 01/18/2025 2:26 PM EDT us Zafar B Ariel BAIN LAB BLOOD ORDERABLES Final Resu lt [facility] [address] [place] [address], [place] [phone] * Magnesium (01/18/2025 1:47 PM EDT) Pathologist [facility] Magnesium 2.3 1.9 - 2.6 mg/dL LAB CHEMISTRY METHOD 01/18/2025 3:05 PM EDT [facility] Blood Venous blood specimen / Unknown Venipuncture / Unknown 01/18/2025 1:47 PM EDT 01/18/2025 2:26 PM EDT us Zafar B Ariel BAIN LAB BLOOD ORDERABLES Final Resu lt [facility] [address] [place] [address], [place] [phone] * (ABNORMAL) Basic metabolic panel (01/18/2025 1:47 PM EDT) Pathologist [facility] Sodium 142 133 - 145 mmol/L LAB CHEMISTRY METHOD 01/18/2025 3:05 PM [facility] Potassium 4.5 3.5 - 5.5 mmol/L LAB CHEMISTRY METHOD 01/18/2025 3:05 PM [facility] Chloride 108 96 - 110 mmol/L LAB CHEMISTRY METHOD 01/18/2025 3:05 PM [facility] CO2 27 21 - 32 mmol/L LAB CHEMISTRY METHOD 01/18/2025 3:05 PM [facility] Anion Gap 7 3 - 11 LAB CHEMISTRY METHOD 01/18/2025 3:05 PM [facility] Glucose 112(H) 70 - 100 mg/dL LAB CHEMISTRY METHOD 01/18/2025 3:05 PM [facility] BUN 13 5 - 25 mg/dL LAB CHEMISTRY METHOD 01/18/2025 3:05 PM [facility] Creatinine 0.84 0.50 - 1.10 mg/dL LAB CHEMISTRY METHOD 01/18/2025 3:05 PM EDT [facility] eGFR 71 >=60 mL/min/1. 73m2 LAB CHEMISTRY METHOD 01/18/2025 3:05 PM EDT [facility] Comment:Calculation based on the Chronic Kidney Disease Epidemiology Collaboration (CKD-EPI) equation refit without adjustment for race. BUN/Creatinine Ratio 15.5 LAB CHEMISTRY METHOD 01/18/2025 3:05 PM EDT [facility] Calcium 9.5 8.5 - 10.5 mg/dL LAB CHEMISTRY METHOD 01/18/2025 3:05 PM EDT [facility] Blood Venous blood specimen / Unknown Venipuncture / Unknown 01/18/2025 1:47 PM EDT 01/18/2025 2:26 PM EDT Zafar Johanna George MD LAB BLOOD ORDERABLES Final Resu lt Performing Organization Address City/[facility]/ZIP Co de Phone Number [facility] [address] [place] [address], [place] [phone] * ECG 12 lead (01/18/2025 1:41 PM EDT) Ventricular Rate ECG 71 BPM GEMUSE Atrial Rate 71 BPM GEMUSE P-R Interval 124 ms GEMUSE QRS Duration 100 ms GEMUSE Q-T Interval 402 ms GEMUSE QTc 436 ms GEMUSE P Wave [place] 48 degrees GEMUSE R [place] -28 degrees GEMUSE T [place] 113 degrees GEMUSE ECG Interpretation Normal sinus rhythm Moderate voltage criteria for LVH, may be normal variant ( R in aVL , Santhosh product ) Nonspecific T wave abnormality Abnormal ECG No previous ECGs available Confirmed by DENISE ROBERTSON ([id number]) on 01/18/2025 8:22:59 PM GEMUSE 01/18/2025 1:41 PM EDT 01/18/2025 8:22 PM EDT Zafareffie George MD ECG ORDERABLES Final Result Performing Organization Address City/[facility]/ZIP Co de Phone Number GEMUSE * (ABNORMAL) Urinalysis with reflex microscopic and culture (01/18/2025 1:36 PM EDT) Specific [place] Urine 1.023 1.003 - 1.030 LAB URINALYSIS - AUTOMATED METHOD [facility] pH, Urine 7.5 5.0 - 8.0 pH LAB URINALYSIS - AUTOMATED METHOD 01/18/2025 2:44 PM EDT [facility] Leukocytes, Urine Trace(A) Negative LAB URINALYSIS - AUTOMATED METHOD 01/18/2025 2:44 PM [facility] Nitrite, Urine Negative Negative LAB URINALYSIS - AUTOMATED METHOD 01/18/2025 2:44 PM [facility] Protein, Urine 30(A) <=Trace mg/dL LAB URINALYSIS - AUTOMATED METHOD 01/18/2025 2:44 PM [facility] Glucose, Urine Negative Negative mg/dL LAB URINALYSIS - AUTOMATED METHOD 01/18/2025 2:44 PM [facility] Ketones, Urine Negative Negative mg/dL LAB URINALYSIS - AUTOMATED METHOD 01/18/2025 2:44 PM [facility] Urobilinogen, Urine 1.0 0.2 - 1.0 mg/dL LAB URINALYSIS - AUTOMATED METHOD 01/18/2025 2:44 PM [facility] Bilirubin, Urine Negative Negative LAB URINALYSIS - AUTOMATED METHOD 01/18/2025 2:44 PM [facility] Blood, Urine Negative Negative LAB URINALYSIS - AUTOMATED METHOD 01/18/2025 2:44 PM [facility] RBC, Urine 1.1 0 - 4 /HPF LAB URINALYSIS - AUTOMATED METHOD 01/18/2025 2:44 PM [facility] WBC, Urine 1.7 0 - 4 /HPF LAB URINALYSIS - AUTOMATED METHOD 01/18/2025 2:44 PM EDT [facility] Squamous Epithelial, Urine 71(H) 0 - 60 /LPF LAB URINALYSIS - AUTOMATED METHOD 01/18/2025 2:44 PM EDT [facility] Bacteria, Urine Negative Negative /HPF LAB URINALYSIS - AUTOMATED METHOD 01/18/2025 2:44 PM EDT [facility] Hyaline Casts, Urine 1.2 0 - 3 /LPF LAB URINALYSIS - AUTOMATED METHOD 01/18/2025 2:44 PM EDT [facility] Urine Urine specimen obtained by clean catch procedure / Unknown Non-blood Collection / Unknown 01/18/2025 1:36 PM EDT 01/18/2025 2:26 PM EDT Zafareffie George MD LAB URINE ORDERABLES Final Resu lt Performing Organization Address [facility]/ZIP Co de Phone Number [facility] [address] [place] [address], [place] [phone] * Morgan urine culture tube (01/18/2025 1:36 PM EDT) Pathologist [facility] Extra Tube Hold for add-ons. 01/21/2025 5:01 PM EDT [facility] Comment:Auto resulted. Urine Urine specimen obtained by clean catch procedure / Unknown Non-blood Collection / Unknown 01/18/2025 1:36 PM EDT 01/18/2025 2:26 PM EDT Zafar George MD LAB URINE ORDERABLES Final Resu lt Performing Organization Address City/[facility]/ZIP Co de Phone Number [facility] [address] [place] [address], [place] [phone] * (ABNORMAL) Culture urine (01/18/2025 1:36 PM EDT) Culture, Urine >100,000 CFU/mL Klebsiella oxytoca ESBL(A) YANIRA 01/21/2025 10:26 AM EDT [facility] Comment: THIS ORGANISM IS POSITIVE [...] MICROBIOLOGY - GENERAL ORDE SHARRON Final Result [facility] [address] [place] [address], from Last 3 Months Additional Health Concerns Infection Onset Date Last Indicated ESBL 01/18/2025 01/18/2025 Insurance [facility] MEDICARE Member Subscriber Plan / Payer (Ef fective 2020-Present) Name:JIM LOPEZ Relation to Subscriber:Self Name:Jim Lopez Payer ID:[id number] Group ID:[id number] Type:Not on file Address: [place] [address] [place] [id number] Care Teams Treasury Specialist Relationship Specialty Start Date End Date Gokul Cleveland MD [address] [place] [address] PCP - General Internal Medicine 01/18/25
--- OUTSIDE RECORDS SUMMARY | 2025-03-20 10:00 | XMS_ITS | Patient Health Record ---
Author Organization [facility] Address [address] [place] [address] Care Team Providers Care Stave Block Roller Name Role Phone Gokul Cleveland MD Primary Care Provider Ty Saravia Unavailable [phone] Allergies Allergen (clinical drug ingredient) Drug/Non Drug [...] HCl 500 MG 1 tablet with a om l Orally Once a day; Duration: 30 [...] Active Pro[employer]o-Med HC 2.5 % 1 application Caddymaster ally Twice a day Active Aspirin 81 [...] Problem Acquired hammer toe of right foot ([id number] 9105) Other hammer toe(s) (acquired), right foot (M20.41) Active confirmed Problem Acquired hammer toe of left foot ([id number] 9103) Other hammer toe(s) (acquired), left foot (M20.42) Active confirmed Problem Type 2 diabetes mellitus with diabetic polyneuropathy (E11.42) Active confirmed Plan Of Treatment Pending Test Test Name Order Date [id number] NAIL, 6 OR MORE 12/24/2020 [id number] NAIL, 6 OR MORE 04/09/2021 [id number] SKIN LESIONS, OVER 4 04/09/20 21 [id number] SKIN LESIONS, OVER 4 12/25/19 21 Insurance Providers Payer Name Payer Address Payer Phone Subscriber Number Group Number Insured Name Patient Relationship to Insured Coverage Start Date Coverage End Date [facility] [employer] Claims [address] [place] [id number] [phone] [id number] Kaitlynn Javier Self - patient is the insured Medical (General) History Medical History History ICD Code Anxiety asthma Back,Hip,and Knee pain CAD (Cholesterol) Cataracts Depression Diabetic Fibromyalgia High blood pressure Poor circulation Sciatica Transfusions Reflux Surgical History Surgery Date(Month/Year) about 10 surgeries Hospitalization History Reason Date(Month/Year) [facility], Heart issues 07/2020
== END 2025-03-20 09:50 | disposition home or self-care (01) ==
LOC: HO.HPS 09:20
PROVIDERS: PCP Internal Medicine; Visit Provider Hospitalist
DX: I50.9 Heart failure, unspecified (principal); J98.4 Other disorders of lung; R06.09 Other forms of dyspnea; G47.33 Obstructive sleep apnea (adult) (pediatric); I50.1 Left ventricular failure, unspecified; R91.8 Other nonspecific abnormal finding of lung field; T78.40XA Allergy, unspecified, initial encounter; J45.50 Severe persistent asthma, uncomplicated
CPT/HCPCS: 99214; G2211

== ENCOUNTER → 2025-03-20 09:19 | Outpatient (BNVA) | payer OTHER, SELFPAY | PROVIDERS: PCP Internal Medicine; Visit Provider Hospitalist | DX: R06.02 Shortness of breath (principal); I50.9 Heart failure, unspecified; R06.09 Other forms of dyspnea; G47.33 Obstructive sleep apnea (adult) (pediatric); I50.1 Left ventricular failure, unspecified; R91.8 Other nonspecific abnormal finding of lung field; Z91.09 Other allergy status, other than to drugs and biological substances; J45.40 Moderate persistent asthma, uncomplicated | CPT/HCPCS: 99212 ==